=== PATIENT | male | born 1945 | race Caucasian/White ===

== ENCOUNTER 2018-08-18 19:30 | Emergency (ER) | payer OTHER ==
[~2018-08-18] VITALS: Ht 180.3 cm; Wt 108.9 kg
--- OUTSIDE RECORDS SUMMARY | 2018-08-18 19:35 | XMS REPORT | Continuity of Care Document ---
Author Author [facility] Organization [facility] Address Unknown Phone Unavailable Allergies There is no data. Medications There is no data. Problems Date Dx Coded Attending Type Code Diagnosis Diagnosed By 02/26/2016 LILIAN LAGOS Ot 305.1 TOBACCO USE DISORDER Procedures There is no data. Results There is no data. Encounters ACCT No. Visit Date/Time Discharge Status Pt. Type Provider Facility Loc./Unit Complaint [id number] 02/20/2014 11:38:00 02/20/2014 23:59:59 CLS Outpatient LILIAN LAGOS [facility] RAD
[2018-08-18] MEDS ORDERED: HYDROcodone/APAP 5 MG/325 MG (LORTAB) TAB PO ONE (20:30)
--- NOTE | 2018-08-18 20:32 | ED Fall/Injury ---
General Stated Complaint: PREV FALL/BACK PAIN Source: patient Exam Limitations: no limitations History of Present Illness Date Seen by Provider: Aug 18, 2018 Time Seen by Provider: 20:30 Initial Comments To ER with reports of a fall on Tuesday of this week. Today is Tuesday. States that he slipped on his porch steps Tuesday they were slippery and covered with ice. Did not hit his head but he landed on his left upper back. He has subsequent pain to the left posterior lower chest that wraps around the lateral side into the front. No abdominal pain. No shortness of breath. Occurred: other (2 days ago) Severity: moderate Injuries/Pain Location: chest Context: slipped Loss of Consciousness: no loss of consciousness Associated Symptoms (Fall): No Abdominal Pain; Chest Pain (posterior left); No Neck Pain Allergies and Home Medications Allergies Coded Allergies: No Known Drug Allergies (Unverified , 08/18/18) Home Medications Hydrocodone/Acetaminophen 1 Each Tablet, 1 EACH PO Q6H PRN for PAIN-MODERATE Prescribed by: RICARDO TEMPLE on 08/18/18 0738 Patient Home Medication List Home Medication List Reviewed: Yes Review of Systems Review of Systems Constitutional: see HPI Eyes: No Symptoms Reported Ears, Nose, Mouth, Throat: no symptoms reported Respiratory: no symptoms reported Cardiovascular: no symptoms reported Genitourinary: no symptoms reported Musculoskeletal: no symptoms reported Skin: no symptoms reported Psychiatric/Neurological: No Symptoms Reported Past Hzxgebj-Vhohpq-Vqawug Hx Patient Social History Recent Foreign Travel: No Contact w/Someone Who Travel: No Physical Exam Vital Signs Vital Signs - First Documented 08/18/18 20:25 Temp 99.5 Pulse 72 Resp 16 B/P (MAP) 171/69 (103) Pulse Ox 96 Capillary Refill : Height, Weight, BMI Height: '" Weight: lbs. oz. kg; BMI Method: General Appearance: WD/WN, no apparent distress HEENT: PERRL/EOMI, normal ENT inspection Neck: non-tender, full range of motion Cardiovascular: regular rate, rhythm, no murmur Respiratory: normal breath sounds, no respiratory distress, no accessory muscle use Gastrointestinal: normal bowel sounds, non tender, soft Back: other (posterior left lower chest is tender to palpation but there is no crepitus ecchymosis abrasions.) Extremities: normal range of motion, non-tender Neurologic/Psychiatric: alert, normal mood/affect, oriented x 3 Skin: normal color, warm/dry Celi Coma Score Best Eye Response: (4) Open Spontaneously Best Verbal Response: (5) Oriented Best Motor Response: (6) Obeys Commands Celi Total: 15 Progress/Results/Core Measures Results/Orders My Orders Orders - RICARDO TEMPLE APRN Ct Chest Wo (08/18/18 20:29) Hydrocodone/Apap 5/325 Tablet (Lortab 5 (08/18/18 20:30) Rx-Hydrocodone/Apap 5-325 Mg (Rx-Vicodin (08/18/18 22:45) Medications Given in ED Current Medications Medications Dose Ordered Sig/Varun Route Start Time Stop Time Status Last Admin Dose Admin Acetaminophen/ Hydrocodone Bitart 1 tab ONCE ONCE PO 08/18/18 20:30 08/18/18 20:31 DC 08/18/18 20:36 1 TAB Vital Signs/I&O 08/18/18 20:25 Temp 99.5 Pulse 72 Resp 16 B/P (MAP) 171/69 (103) Pulse Ox 96 Departure Communication (Admissions) Family Conversation 8-I discussed the findings with him of his CT. We discussed the pulmonary nodule and the need for follow-up with primary care for further evaluation to rule out malignancy. He agrees to follow-up. We will treat as if there is a nonvisualized rib fracture with pain control. NAME: [facility] REC#: [id number] PT STATUS: REG ER : 1945 PHYSICIAN: RICARDO TEMPLE APRN ADMIT DATE: 08/18/18/ER Draft Date of Exam:08/18/18 CT CHEST WO PROCEDURE: CT chest without contrast. TECHNIQUE: Multiple contiguous axial images were obtained through the chest without the use of intravenous contrast. INDICATION: Chest pain after fall EXAMINATION: CT chest without contrast 08/18/2018 FINDINGS: There are diffuse emphysematous changes throughout the lungs. A focal nodule in the medial aspect of the right upper lobe is seen just posterior to the trachea. This measures 12 mm in greatest dimension. Adjacent mild patchy airspace opacity noted and nonspecific. Remaining right upper lobe and portions of the right middle lobe demonstrate multiple scattered airspace opacities and multiple tiny nodules which are too small to characterize at this time. A few are calcified. Mild pleural thickening along the lateral wall of the right hemithorax also noted. Bilateral predominantly apical emphysematous changes are seen with areas of scarring and/or atelectasis towards the apices. Very tiny nodules noted throughout the left lower lobe some of which may be calcified, others are not calcified and could be followed to assure stability. Atherosclerotic disease is seen. Shotty lymph nodes throughout the mediastinum noted. Visualized upper abdominal structures demonstrate an incompletely imaged abdominal aortic aneurysm, visualized aspects measure 4.3 cm in greatest dimension. No surrounding fluid along its visualized aspects appreciated. A splenule noted adjacent to the spleen. IMPRESSION: 1. Nonspecific nodule in the medial right upper lobe. A metastatic process or even early primary carcinoma cannot be excluded, however, given the multiple other calcified nodules this could be due to old granulomatous disease although felt to be less likely. PET scan may be warranted if clinically indicated. Other small nodularities throughout both lungs are too small for characterization at this time and could be followed to assure stability. 2. More focal vague airspace opacities in the right upper lobe which could be due to a developing infiltrate; correlate with symptoms. Otherwise, this could be focal atelectasis and scarring. Other incidental findings as described above including aortic aneurysm in the upper abdomen. 3. Not mentioned in the body of the report there is no pneumothorax. No displaced rib fractures appreciated. Dictated on workstation # [id number] Dict: 08/18/[id number] Trans: 08/18/182205 [facility] [id number] Interpreted by: ALVIN STARK MD Electronically signed by: Impression Primary Impression: Thoracic back pain Qualified Codes: M54.6 - Pain in thoracic spine Disposition: 01 HOME, SELF-CARE Condition: Stable Departure-Patient Inst. Decision time for Depature: 22:16 Referrals: JACQUES BELTRE MD (PCP/Family) Primary Care Physician Patient Instructions: Upper Back Pain Add. Discharge Instructions: 1. Take medication as directed. Return to ER for any fevers chills or worsening symptoms. Follow-up with your doctor on Tuesday for recheck. Scripts Hydrocodone/Acetaminophen ([place] 5-325 Tablet) 1 Each Tablet 1 EACH PO Q6H PRN for PAIN-MODERATE MDD 10, #14 TAB Prov: RICARDO TEMPLE PIPE MACHINE OPERATOR 08/18/18 Images Torso/Trunk 1 - Tenderness RICARDO TEMPLE APRN Aug 18, 2018 20:32
--- NOTE | 2018-08-18 22:06 | Diagnostic Imaging Report ---
PROCEDURE: CT chest without contrast. TECHNIQUE: Multiple contiguous axial images were obtained through the chest without the use of intravenous contrast. INDICATION: Chest pain after fall EXAMINATION: CT chest without contrast 08/18/2018 FINDINGS: There are diffuse emphysematous changes throughout the lungs. A focal nodule in the medial aspect of the right upper lobe is seen just posterior to the trachea. This measures 12 mm in greatest dimension. Adjacent mild patchy airspace opacity noted and nonspecific. Remaining right upper lobe and portions of the right middle lobe demonstrate multiple scattered airspace opacities and multiple tiny nodules which are too small to characterize at this time. A few are calcified. Mild pleural thickening along the lateral wall of the right hemithorax also noted. Bilateral predominantly apical emphysematous changes are seen with areas of scarring and/or atelectasis towards the apices. Very tiny nodules noted throughout the left lower lobe some of which may be calcified, others are not calcified and could be followed to assure stability. Atherosclerotic disease is seen. Shotty lymph nodes throughout the mediastinum noted. Visualized upper abdominal structures demonstrate an incompletely imaged abdominal aortic aneurysm, visualized aspects measure 4.3 cm in greatest dimension. No surrounding fluid along its visualized aspects appreciated. A splenule noted adjacent to the spleen. IMPRESSION: 1. Nonspecific nodule in the medial right upper lobe. A metastatic process or even early primary carcinoma cannot be excluded, however, given the multiple other calcified nodules this could be due to old granulomatous disease although felt to be less likely. PET scan may be warranted if clinically indicated. Other small nodularities throughout both lungs are too small for characterization at this time and could be followed to assure stability. 2. More focal vague airspace opacities in the right upper lobe which could be due to a developing infiltrate; correlate with symptoms. Otherwise, this could be focal atelectasis and scarring. Other incidental findings as described above including aortic aneurysm in the upper abdomen. 3. Not mentioned in the body of the report there is no pneumothorax. No displaced rib fractures appreciated. Dictated by: Dictated on workstation # [id number]
[2018-08-18] MEDS ORDERED: HYDR-4226 PO (22:16)
[2018-08-18 22:45] VITALS: BP 171/69
[2018-08-18] MEDS ORDERED: RX-HYDROCODONE/APAP 5/325 MG #4 TAB PK PO PRN (22:45)
== END 2018-08-18 22:48 | disposition home or self-care (01) ==
LOC: EDUNIT# 19:30 → ER 19:31
DX: M54.6 Pain in thoracic spine (principal); R40.2142 Coma scale, eyes open, spontaneous, at arrival to emergency department; R40.2252 Coma scale, best verbal response, oriented, at arrival to emergency department; R40.2362 Coma scale, best motor response, obeys commands, at arrival to emergency department; W10.8XXA Fall (on) (from) other stairs and steps, initial encounter
CPT/HCPCS: 71250

== ENCOUNTER 2019-04-04 16:35 | Inpatient (IN) | payer OTHER, MEDICARE ==
[~2019-04-04] VITALS: Ht 180.3 cm; Wt 131.7 kg
[2019-04-04] VITALS (13 sets, daily range): BP systolic 88–142; BP diastolic 51–72
[~2019-04-04 16:35] MED LIST: HYDR-4226 PO
--- OUTSIDE RECORDS SUMMARY | 2019-04-04 16:43 | XMS REPORT | Continuity of Care Document ---
Author Organization Unknown Address Unknown Allergies Active Description Code Type Severity Reaction Onset Reported/Identified Relationship to Patient Clinical Status Yes No Known Drug Allergies [id number] Drug Allergy Unknown N/A 08/18/2018 Medications There is no data. Problems Date Dx Coded Attending Type Code Diagnosis Diagnosed By 02/26/2016 LILIAN LAGOS [facility] Ot 305.1 TOBACCO USE DISORDER 08/18/2018 RICARDO TEMPLE APRN Ot M54.6 PAIN IN THORACIC SPINE 08/18/2018 RICARDO TEMPLE APRN Ot R07.89 OTHER CHEST PAIN 08/18/2018 RICARDO TEMPLE APRN Ot R40.2142 COMA SCALE, EYES OPEN, SPONTANEOUS, EMR 08/18/2018 RICARDO TEMPLE APRN Ot R40.2252 COMA SCALE, BEST VERBAL RESPONSE, ORIENT 08/18/2018 RICARDO TEMPLE APRN Ot R40.2362 COMA SCALE, BEST MOTOR RESPONSE, OBEYS C 08/18/2018 RICARDO TEMPLE APRN Ot W10.8XXA FALL (ON) (FROM) OTHER STAIRS AND STEPS, 08/21/2018 RICARDO TEMPLE APRN Ot M54.6 PAIN IN THORACIC SPINE 08/21/2018 RICARDO TEMPLE APRN Ot R07.89 OTHER CHEST PAIN 08/21/2018 RICARDO TEMPLE APRN Ot R40.2142 COMA SCALE, EYES OPEN, SPONTANEOUS, EMR 08/21/2018 RICARDO TEMPLE APRN Ot R40.2252 COMA SCALE, BEST VERBAL RESPONSE, ORIENT 08/21/2018 RICARDO TEMPLE APRN Ot R40.2362 COMA SCALE, BEST MOTOR RESPONSE, OBEYS C 08/21/2018 RICARDO TEMPLE APRN Ot W10.8XXA FALL (ON) (FROM) OTHER STAIRS AND STEPS, Procedures There is no data. Results There is no data. Encounters ACCT No. Visit Date/Time Discharge Status Pt. Type Provider Facility Loc./Unit Complaint [id number] 08/18/2018 19:31:00 08/18/2018 22:48:00 DIS Emergency RICARDO TEMPLE APRN [facility] ER PREV FALL/BACK PAIN [id number] 02/20/2014 11:38:00 02/20/2014 23:59:59 CLS Outpatient LILIAN LAGOSP-[employer]PER[employer] [facility] RAD
[2019-04-04 16:54] LABS: BASOPHILS % (AUTO) 0 % (0-10); EOSINOPHILS % (AUTO) 0 % (0-10); HEMATOCRIT 43 % (40-54); HEMOGLOBIN 14.2 G/DL (13.3-17.7); LYMPHOCYTES # (AUTO) 1.1 X 10^3 (1.0-4.0); LYMPHOCYTES % (AUTO) 7 % (12-44); MEAN CORPUSCULAR HEMOGLOBIN 28 PG (25-34); MEAN CORPUSCULAR HGB CONC 33 G/DL (32-36); MEAN CORPUSCULAR VOLUME 83 FL (80-99); MEAN PLATELET VOLUME 8.9 FL (7.4-10.4); MONOCYTES # (AUTO) 0.9 X 10^3 (0.0-1.0); MONOCYTES % (AUTO) 5 % (0-12); NEUTROPHILS # (AUTO) 14.4 X 10^3 (1.8-7.8); NEUTROPHILS % (AUTO) 88 % (42-75); PLATELET COUNT 289 10^3/uL (130-400); RED CELL DISTRIBUTION WIDTH 14.5 % (10.0-14.5); WHITE BLOOD COUNT 16.4 10^3/uL (4.3-11.0)
[2019-04-04 17:12] LABS: PROTHROMBIN TIME PATIENT 13.7 SEC (12.2-14.7)
[2019-04-04 17:13] LABS: ALBUMIN 3.8 GM/DL (3.2-4.5); BILIRUBIN,TOTAL 0.5 MG/DL (0.1-1.0); CALCIUM 9.5 MG/DL (8.5-10.1); CREATININE SERUM 1.26 MG/DL (0.60-1.30); MAGNESIUM 1.9 MG/DL (1.8-2.4); POTASSIUM 4.4 MMOL/L (3.6-5.0); TOTAL PROTEIN 7.5 GM/DL (6.4-8.2)
[2019-04-04] MEDS ORDERED: fentaNYL INJECTION 100 MCG/2 ML AMP IVP ONE (17:15)
[2019-04-04 17:21] LABS: FIBRIN DEGRADATION PRODUCTS 2.18 UG/ML (0.00-0.49)
--- NOTE | 2019-04-04 17:40 | ED Chest Pain ---
General Chief Complaint: Chest Pain Stated Complaint: CHEST PAIN Nursing Triage Note: PT PRESENTS TO THE ED VIA EMS TO RM 10 WITH COMPLAINTS OF CHEST PAIN THAT DIFFUSES TO THE LEFT ARM WHICH PRECIPITATED AFTER PHYSICAL ACTIVITY IN YARD. CHEST PAIN STARTED AROUND 1500 WHILE RESTING. PT RATED CHEST PAIN 10/10 UPON EMS ARRIVAL TO SITE THEN RATED 6/10 AFTER RECIEVING AN ASPIRIN, 2 SUBLINGUAL NITRO AND NITRO PASTE. Nursing Sepsis Screen: No Definite Risk Source: patient, EMS Exam Limitations: no limitations (SONNY MANCILLA MD) History of Present Illness Date Seen by Provider: Apr 04, 2019 Time Seen by Provider: 16:48 Initial Comments This 74-year-old gentleman presents to the emergency room with complaints of sudden onset of stabbing chest pain that started around 15:00. He arrives via EMS from home. He states the pain started during a coughing fit. He has had cough recently and is currently being treated by his primary care provider with azithromycin and prednisone. He denies any fevers. Pain is not worse with inspiration. He notes having frequent chest pain with exertion over the past 6 months requiring rest. This chest pain has been interrupting his chores at home and in the yard. He has no history of coronary artery disease but has not had any workup done in the past. Patient states EMS administered nitroglycerin sublingually 2 which did help alleviate his pain. EMS then applied nitro past e. Patient states his pain was a 10 on the pain scale when it started. After nitroglycerin and it was 8. Patient received fentanyl in the ER and his pain is now a 6. Patient quit smoking 4 years ago and does not drink alcohol. His primary care provider is Lisseth Wilson at the [facility]. EMS administered his aspirin. (SONNY MANCILLA MD) Allergies and Home Medications Allergies Coded Allergies: No Known Drug Allergies (Unverified , 08/18/18) Home Medications Hydrocodone/Acetaminophen 1 Each Tablet, 1 EACH PO Q6H PRN for PAIN-MODERATE Prescribed by: RICARDO TEMPLE on 08/18/18 3842 Patient Home Medication List Home Medication List Reviewed: Yes (SONNY MANCILLA MD) Review of Systems Review of Systems Constitutional: no symptoms reported EENTM: No Symptoms Reported Respiratory: See HPI Cardiovascular: See HPI Gastrointestinal: No Symptoms Reported Genitourinary: No Symptoms Reported Musculoskeletal: other (chronic hip pain) Skin: no symptoms reported Psychiatric/Neurological: No Symptoms Reported Endocrine: No Symptoms Reported Hematologic/Lymphatic: No Symptoms Reported (SONNY MANCILLA MD) Past Flkhphu-Dtgksx-Udmpjv Hx Past Med/Social Hx: Reviewed and Corrections made (SONNY MANCILLA MD) Patient Social History Alcohol Use: Denies Use Recreational Drug Use: No Smoking Status: Former Smoker Type Used: Cigarettes Former Smoker, Quit: Mar 03, 2014 2nd Hand Smoke Exposure: No Recent Foreign Travel: No Contact w/Someone Who Travel: No Recent Infectious Disease Expo: No Recent Hopitalizations: No (SONNY MANCILLA MD) Seasonal Allergies Seasonal Allergies: No (SONNY MANCILLA MD) Past Medical History Surgeries: Yes Tonsillectomy Respiratory: Yes COPD Cardiac: Yes High Cholesterol, Hypertension, Valvular Heart Disease Neurological: No Genitourinary: No Gastrointestinal: Yes Gastroesophageal Reflux Musculoskeletal: Yes (chronic hip pain) Arthritis, Chronic Back Pain Endocrine: No HEENT: No Cancer: No Psychosocial: No Integumentary: No Blood Disorders: No (SONNY MANCILLA MD) Physical Exam Vital Signs Vital Signs - First Documented (IMANI CARDENAS) Vital Signs Capillary Refill : Less Than 3 Seconds (SONNY MANCILLA MD) Height, Weight, BMI Height: 5'11.00" Weight: 245lbs. oz. 111.596741og; BMI Method:Stated General Appearance: WD/WN, Moderate Distress HEENT: PERRL/EOMI, Normal ENT Inspection Neck: Normal Inspection Respiratory: Lungs Clear, Normal Breath Sounds, No Accessory Muscle Use, No Respiratory Distress, Other (subtle tenderness to palpation on the left lateral chest.) Cardiovascular: Regular Rate, Rhythm, No Edema, No Murmur Gastrointestinal: Normal Bowel Sounds, Non Tender, Soft Extremity: Normal Inspection, Non Tender, No Calf Tenderness, No Pedal Edema, Other (negative Nohemi) Neurologic/Psychiatric: Alert, Oriented x3, No Motor/Sensory Deficits, Normal Mood/Affect, orthopaedic technologist II-XII Norm as Tested Skin: Normal Color, Warm/Dry (SONNY MANCILLA MD) Procedures/Interventions Lumen: triple Central Line Procedure: betadine prep (chlorhexidine prep), sterile drapes applied, sterile dressing applied Position: internal jugular (L) Anesthesia: Lidocaine (1% without epinephrine) Volume Anesthetic (ccs): 3 Complications: none Post Position: sutured, good blood return, position confirmed w/ CXR Patient was in extremis after having been coded with low blood pressure of map of 65. The patient was positioned appropriately and ultrasound was placed over the right IJ and left IJ and left IJ was determined to be a larger target. We clean the site using the chlorhexidine and draped the patient on usual sterile fashion. We then obtained our landmarks using ultrasound guidance and place the introducer needle through the anesthetized skin into the right IJ on first attempt. Guidewire was easily passed. Skin had a small incision made with the 11 blade scalpel provided. We then removed the introducer needle and replaced the dilator over the guidewire. The dilator was removed and the central lumen of the triple lumen catheter that had previously been flushed with sterile saline was placed over the guidewire and the guidewire was removed. We then stitched the catheter in place at 14 cm. The Biopatch was placed and a sterile dressing was applied. Patient tolerated the procedure well. Chest x-ray was obtained which demonstrated good placement with a shadow over the left internal jugular and the distal tip not crossing the midline and no evidence of pneumothorax. (IMANI CARDENAS) Reason for Intubation: status post code Date of ETT Placement: Apr 04, 2019 Time of ETT Placement: 19:20 Intubation Method: orotracheal Tube Size: 7.5 Medications: Etomidate (20mg), Succinylcholine (100mg) Positive End Tide CO2: No Breath Sounds after Intubation: bilateral-equal Intubation Complications: no complications Post Intubation Xray: Yes ET tube at the mariela ET tube was withdrawn 1 cm and repeat x-ray will be obtained in or after the catheter lab. (IMANI CARDENAS) Progress Arctic Sun pads were placed and the patient was transported to the Pump Rebuilder where it was initiated. (IMANI CARDENAS) Critical Care Note Critical Care Start Time: 18:56 Stop Time: 19:56 Total Time (minutes) 60 Progress Patient was heard to be making abnormal respiratory sounds at approximately 1856. He was found unresponsive and pulseless in the room by this provider. He was laid back in the bed and CPR was immediately started. BVM ventilation was initiated as well. A CODE BLUE was activated. He had minimal agonal breathing. CPR was initiated at 18:57. Pads were placed and patient was found to be in ventricular fibrillation. He was defibrillated at 120 J at 19:00. CPR was continued and 1 mg of epinephrine was administered. At 19:01 pulse check revealed PEA. CPR was continued. Patient had some movement during CPR but otherwise was unresponsive. Patient was sedated with Versed 3 mg in preparation for intubation. Pulse check at 19:02 revealed sinus tachycardia with a pulse. Etomidate 20 mg was administered at 19:05. Patient registered a blood pressure at 19:06 at 137/85. Patient was receiving IV normal saline boluses. Patient was intubated by Dr. Cardenas at 19:07. Succinylcholine 100 mg was administered at the time of intubation. Intubation was performed with a 7-gauge ET tube placed at 23 cm at the lip. Patient continued to register a pulse and was maintained on BVM followed by mechanical ventilation. Blood pressure at 19:16 was 92/61. End-tidal capnography was at 37. A second liter of IV normal saline was started at 19:19. A propofol drip was initiated at 19:29. Dr. Tirado arriv ed to the emergency room to assess the patient. He was prepped for Pump Rebuilder and Arctic Sun pads were placed to start therapeutic hypothermia. Family was thoroughly updated and engineering document control clerk services were made available. Patient was taken to Pump Re[facility] at 19:56 (SONNY MANCILLA MD) Progress/Results/Core Measures Results/Orders Lab Results Laboratory Tests Test 04/04/19 16:45 04/04/19 19:35 Range/Units White Blood Count 16.4 H 4.3-11.0 10^3/uL Red Blood Count 5.16 4.35-5.85 10^6/uL Hemoglobin 14.2 13.3-17.7 G/DL Hematocrit 43 40-54 % Mean Corpuscular Volume 83 80-99 FL Mean Corpuscular Hemoglobin 28 25-34 PG Mean Corpuscular Hemoglobin Concent 33 32-36 G/DL Red Cell Distribution Width 14.5 10.0-14.5 % Platelet Count 289 130-400 10^3/uL Mean Platelet Volume 8.9 7.4-10.4 FL Neutrophils (%) (Auto) 88 H 42-75 % Lymphocytes (%) (Auto) 7 L 12-44 % Monocytes (%) (Auto) 5 0-12 % Eosinophils (%) (Auto) 0 0-10 % Basophils (%) (Auto) 0 0-10 % Neutrophils # (Auto) 14.4 H 1.8-7.8 X 10^3 Lymphocytes # (Auto) 1.1 1.0-4.0 X 10^3 Monocytes # (Auto) 0.9 0.0-1.0 X 10^3 Eosinophils # (Auto) 0.0 0.0-0.3 10^3/uL Basophils # (Auto) 0.0 0.0-0.1 10^3/uL Neutrophils % (Manual) 84 % Lymphocytes % (Manual) 5 % Monocytes % (Manual) 8 % Band Neutrophils 3 % Blood Morphology Comment NORMAL Prothrombin Time 13.7 12.2-14.7 SEC INR Comment 1.0 0.8-1.4 Activated Partial Thromboplast Time 27 24-35 SEC D-Dimer 2.18 H 0.00-0.49 UG/ML Sodium Level 134 L 135-145 MMOL/L Potassium Level 4.4 3.6-5.0 MMOL/L Chloride Level 100 98-107 MMOL/L Carbon Dioxide Level 19 L 21-32 MMOL/L Anion Gap 15 H 5-14 MMOL/L Blood Urea Nitrogen 23 H 7-18 MG/DL Creatinine 1.26 0.60-1.30 MG/DL Estimat Glomerular Filtration Rate 56 BUN/Creatinine Ratio 18 Glucose Level 156 H 70-105 MG/DL Calcium Level 9.5 8.5-10.1 MG/DL Corrected Calcium 9.7 8.5-10.1 MG/DL Magnesium Level 1.9 1.8-2.4 MG/DL Total Bilirubin 0.5 0.1-1.0 MG/DL Aspartate Amino Transf (AST/SGOT) 33 5-34 U/L Alanine Aminotransferase (ALT/SGPT) 21 0-55 U/L Alkaline Phosphatase 82 40-136 U/L Myoglobin 440.9 H 10.0-92.0 NG/ML Troponin I 0.114 H <0.028 NG/ML C-Reactive Protein High Sensitivity 2.70 H 0.00-0.50 MG/DL B-Type Natriuretic Peptide 285.0 H <100.0 PG/ML Total Protein 7.5 6.4-8.2 GM/DL Albumin 3.8 3.2-4.5 GM/DL Lipase 36 8-78 U/L Blood Gas Puncture Site RRAD Blood Gas Patient Temperature 98.3 Arterial Blood pH 7.05 *L 7.37-7.43 Arterial Blood Partial Pressure CO2 61 H 35-45 MMHG Arterial Blood Partial Pressure O2 159 H 79-93 MMHG Arterial Blood HCO3 16 *L 23-27 MMOL/L Arterial Blood Total CO2 18.0 L 21.0-31.0 MMOL/L Arterial Blood Oxygen Saturation 98 94-100 % Arterial Blood Base Excess -12.7 L -2.5-2.5 MMOL/L Omid Test YES-POS Blood Gas Ventilator Setting NO Blood Gas Inspired Oxygen 100% (IMANI CARDENAS) My Orders Orders - IMANI CARDENAS Arterial Blood Gas (04/04/19 19:38) (IMANI CARDENAS) Medications Given in ED Current Medications Medications Dose Ordered Sig/Varun Route Start Time Stop Time Status Last Admin Dose Admin Albuterol/ Ipratropium 3 ml ONCE ONCE INH 04/04/19 17:45 04/04/19 17:46 DC 04/04/19 18:11 3 ML Clopidogrel Bisulfate 300 mg ONCE ONCE PO 04/04/19 18:00 04/04/19 18:01 DC 04/04/19 18:19 300 MG Fentanyl Citrate 50 mcg ONCE ONCE IVP 04/04/19 17:15 04/04/19 17:16 DC 04/04/19 17:20 50 MCG Iohexol 150 ml ONCE ONCE IV 04/04/19 18:30 04/04/19 18:39 DC 04/04/19 18:38 150 ML Propofol 100 ml @ STK-MED ONCE IV 04/04/19 19:07 04/04/19 19:14 DC 04/04/19 19:29 26.6 MLS/HR Sodium Chloride 100 ml ONCE ONCE IV 04/04/19 18:30 04/04/19 18:39 DC 04/04/19 18:38 100 ML Sodium Chloride 1,000 ml @ STK-MED ONCE .ROUTE 04/04/19 18:55 04/04/19 19:01 DC 04/04/19 19:06 1,000 MLS/HR Sodium Chloride 1,000 ml @ STK-MED ONCE .ROUTE 04/04/19 19:13 04/04/19 19:20 DC 04/04/19 19:13 1,000 MLS/HR Sodium Chloride 1,000 ml @ STK-MED ONCE .ROUTE 04/04/19 19:29 04/04/19 19:35 DC 04/04/19 19:36 1,000 MLS/HR (IMANI CARDENAS) Vital Signs/I&O 04/04/19 04/04/19 04/04/19 04/04/19 16:39 16:39 18:11 19:29 Temp 98.3 Pulse 94 134 Resp 14 20 B/P (MAP) 150/73 (98) 130/114 Pulse Ox 96 98 89 O2 Delivery Room Air Room Air 04/05/19 00:00 Intake Total 2000 ml Balance 2000 ml (IMANI CARDENAS) Blood Pressure Mean: 98 Progress Progress Note #1: Time: 18:21 Progress Note Chest pain workup was pursued. Patient was feeling a little better with the nitroglycerin paste. He states his pain decreased from a 10 down to 8 after the nitroglycerin paste. It then decreased to 6/10 after fentanyl. EKG was concerning for some nonspecific ST changes but those changes could represent some ischemia. Troponin was less than 0.3 but was elevated at 0.114. Case was discussed with Dr. Tirado who would like to patient mid to the ICU. He requested he additionally be given Plavix. Patient's d-dimer returned elevated. CT angiogram needs to be performed before he departs the emergency room. Patient has history of COPD and he is having trouble coughing up mucus. A DuoNeb treatment was administered which did help his chest discomfort and breathing. Progress Note #2: Time: 19:[address] angiogram was obtained and revealed no acute abnormalities. Upon returning from CT patient complained of escalating chest pain. He was given 5 mg of morphine. I updated Dr. Tirado with patient's status. Dr. Tirado then requested the Pump Rebuilder be activated. I discussed this with the patient and explained angiography and the necessity of this procedure. Patient was agreeable to angiography. Shortly after I left the room I heard unusual breathing coming from his room. I walked into the room to find him lying on his back against the rail unresponsive. Staff were summoned to the room and CPR was immediately started. See critical care notes for further details. Patient underwent cardiac resuscitation with defibrillation, CPR, and administration of epinephrine. ROSC was achieved. Patient was stabilized and Dr. Tirado was again updated. He still plans to take the patient to cardiac cath. Case was also discussed with Dr. Penny who agrees with angiography and Arctic Sun administration for unresponsive post cardiac arrest therapeutic hypothermia. Family has been thoroughly updated with the patient's status and are in agreement with this plan. (SONNY MANCILLA MD) Initial ECG Impression Date: Apr 04, 2019 Initial ECG Impression Time: 16:39 Initial ECG Rate: 96 Comment Sinus rhythm with no ST elevation. Inverted T waves with repolarization abnormality, possibly suggesting ischemia. No abnormal intervals or axis deviation. (SONNY MANCILLA MD) Diagnostic Imaging Diagonstic Imaging: Xray Plain Films/CT/US/NM/MRI: chest Comments Chest x-ray viewed by me and report reviewed. See report below: NAME: BERNA SMALLWOOD Nestio REC#: [id number] PT STATUS: REG ER : 12/05/1944 PHYSICIAN: RICARDO TEMPLE APRN ADMIT DATE: 04/04/19/ER Signed Date of Exam: 04/04/19 CHEST 1 VIEW, AP/PA ONLY INDICATION: Chest pain and cough. FINDINGS: Portable chest shows heart size to be upper normal. Vascularity is normal. The lungs are clear. There is no effusion or pneumothorax. There is no bony abnormality. IMPRESSION: No acute abnormality is seen. Chest is similar to prior study from 08/18/2018. Dictated by: Dictated on workstation # [id number] Dict: 04/04/191755 Trans: 04/04/191818 Interpreted by: ALESIA MENDOZA MD Electronically signed by: ALESIA MENDOZA MD 04/04/191818 Diagonstic Imaging: CT Plain Films/CT/US/NM/MRI: chest Comments NAME: BERNA SMALLWOOD Nestio REC#: [id number] PT STATUS: REG ER : 12/05/1944 PHYSICIAN: SONNY MANCILLA MD ADMIT DATE: 04/04/19/ER Signed Date of Exam: 04/04/19 CT ANGIO CHEST W PROCEDURE: CT angiography of the chest with contrast. TECHNIQUE: Multiple contiguous axial images were obtained through the chest after uneventful bolus administration of intravenous contrast. 2D reconstructed CTA MIP acquisitions were also performed. Auto Exposure Controls were utilized during the CT exam to meet ALARA standards for radiation dose reduction. INDICATION: Chest pain radiating to left arm. FINDINGS: The lungs are clear. There is no effusion or pneumothorax. There is mild cardiomegaly. There is no aortic aneurysm or dissection. There is no pulmonary embolus. IMPRESSION: No acute abnormality is seen. No pulmonary embolus is seen. Dictated by: Dictated on workstation # [id number] Dict: 04/04/19 184 Trans: 04/04/191856 Interpreted by: ALESIA MENDOZA MD Electronically signed by: ALESIA MENDOZA MD 04/04/191856 Reviewed: Reviewed by Me (SONNY MANCILLA MD) Diagonstic Imaging: Xray Plain Films/CT/US/NM/MRI: chest Comments Satisfactory endotracheal tube and nasogastric tube placement. Development of diffuse bilateral pulmonary infiltrates right greater than left. Left sided central line has tip overlying the left innominate shadow. Reviewed: Reviewed by Me (IMANI CARDENAS) Departure Impression Primary Impression: Cardiac arrest with ventricular fibrillation Disposition: ADMITTED INPATIENT Condition: Critical Admissions Decision to Admit Reason: Admit from ER (General) Decision to Admit/Date: Apr 04, 2019 Time/Decision to Admit Time: 17:00 (SONNY MANCILLA MD) Departure-Patient Inst. Referrals: JACQUES BELTRE MD (PCP/Family) Primary Care Physician SONNY MANCILLA MD Apr 04, 2019 17:40 IMANI CARDENAS Apr 05, 2019 02:53
[2019-04-04 17:43] LABS: BAND NEUTROPHILS 3 %; LYMPHOCYTES % (MANUAL) 5 %; MONOCYTES % (MANUAL) 8 %; NEUTROPHILS % (MANUAL) 84 %
[2019-04-04 17:44] LABS: RBC MORPH NORMAL
[2019-04-04] MEDS ORDERED: RT-ALBUTEROL/IPRATROPIUM 3 ML (DUONEB) VIAL INH ONE (17:45)
--- NOTE | 2019-04-04 17:59 | Diagnostic Imaging Report ---
INDICATION: Chest pain and cough. FINDINGS: Portable chest shows heart size to be upper normal. Vascularity is normal. The lungs are clear. There is no effusion or pneumothorax. There is no bony abnormality. IMPRESSION: No acute abnormality is seen. Chest is similar to prior study from 08/18/2018. Dictated by: Dictated on workstation # [id number]
[2019-04-04] MEDS ORDERED: CLOPIDOGREL 300 MG (PLAVIX) TABLET PO ONE ×2 (18:00→22:15)
[2019-04-04] MEDS ORDERED: NS 100 ML (IVPB) BAG IV ONE (18:30)
[2019-04-04] MEDS ORDERED: HOLD METFORMIN - RECEIVED CONTRAST 20 ML VIAL IV SCH (18:30)
[2019-04-04] MEDS ORDERED: IOHEXOL 350 MG/ML 150 ML (OMNIPAQUE 350) VIAL IV ONE (18:30)
[2019-04-04] MEDS ORDERED: morphine INJ 10 MG/ML 1ML (SYR OR VIAL) IVP STA (18:41)
--- NOTE | 2019-04-04 18:46 | Diagnostic Imaging Report ---
PROCEDURE: CT angiography of the chest with contrast. TECHNIQUE: Multiple contiguous axial images were obtained through the chest after uneventful bolus administration of intravenous contrast. 2D reconstructed CTA MIP acquisitions were also performed. Auto Exposure Controls were utilized during the CT exam to meet ALARA standards for radiation dose reduction. INDICATION: Chest pain radiating to left arm. FINDINGS: The lungs are clear. There is no effusion or pneumothorax. There is mild cardiomegaly. There is no aortic aneurysm or dissection. There is no pulmonary embolus. IMPRESSION: No acute abnormality is seen. No pulmonary embolus is seen. Dictated by: Dictated on workstation # [id number]
[2019-04-04] MEDS ORDERED: NS IV 1000 ML 1,000 ML ONE ×6 (18:55→20:51)
[2019-04-04] MEDS ORDERED: PROPOFOL DRIP (ICU) 100 ML IV ONE (19:07)
[2019-04-04] MEDS ORDERED: EPINEPHrine (OMNICELL DRIP KIT ONLY) 1 MG/ML AMP ONE (19:16)
[2019-04-04] MEDS ORDERED: NS (IVPB) 250 ML ONE ×2 (19:16→19:42)
[2019-04-04] MEDS ORDERED: LIDOCAINE 1% INJ 20 ML 20 ML VIAL ONE (19:17)
[2019-04-04] MEDS ORDERED: HEParin (CATH LAB) 2,000 ML IV ONE (19:17)
[2019-04-04] MEDS ORDERED: fentaNYL INJECTION 100 MCG/2 ML AMP ONE (19:21)
[2019-04-04] MEDS ORDERED: MIDAZOLAM 5 MG/5 ML (VERSED) VIAL ONE (19:21)
[2019-04-04] MEDS ORDERED: HEParin 1000 UNIT/ML (10ML VIAL) FOR BOLUS ONE (19:21)
[2019-04-04] MEDS ORDERED: MAGNESIUM 1 GM/100 ML IVPB 200 ML IV ONE ×2 (19:34→21:56)
[2019-04-04] MEDS ORDERED: LORazepam INJ 2 MG/ML (ATIVAN) VIAL ONE ×2 (19:34→22:46)
--- NOTE | 2019-04-04 19:39 | History & Physical-Hospitalist ---
History of Present Illness HPI/Chief Complaint Pt is a 74yoCM who presented to the ER due to chest pain. History is obtained only through the records because he is intubated. Reportedly he had been having chest pain on and off and putting it off because it got better on it's own. He was found to have a mildly elevated troponin and d-dimer so went to CT for CTA to rule out PE or dissection. CTA chest was negative and shortly upon return to the ER he was noticed to be gurgling and in v-fib arrest. ACLS protocol was initiated in the ER and he was shocked x1 with conversion to PEA. He received epi pushes x1 and CPR and ultimately had ROSC. Decision was made to take to emergent manager cath lab and initiate arctic sun therapy as he was unable to follow commands. He was intubated in the ER and central line was placed. I was later able to talk to the who states that he has been having chest pain and dyspnea with exertion that resolved with rest. He had been to see his Primary care provider a couple of times over the last month for a cough and SOB. He was treated with inhalers, steroids, and antibiotics without improvement. He had worsening pain today and his decided to bring him to the ER. Source: patient Exam Limitations: clinical condition Date Seen 04/04/19 Time Seen by a Provider: 19:34 Attending Physician Billie Ramos Ahmad MD Referring Physician Date of Admission Home Medications & Allergies Home Medications Reviewed patient Home Medication Reconciliation performed by pharmacy medication reconciliations all terrain vehicle technician and/or nursing. Patients Allergies have been reviewed. Allergies Allergies Coded Allergies No Known Drug Allergies (Eamhgthtdh56/16/18) Past Kslkxaj-Voolxr-Mwmjii Hx Past Med/Social Hx: Reviewed Nursing Past Med/Soc Hx Patient Social History Marrital Status: Alcohol Use: Denies Use Recreational Drug Use: No Smoking Status: Former Smoker Former Smoker, Quit: Mar 03, 2014 Type Used: Cigarettes 2nd Hand Smoke Exposure: No Recent Foreign Travel: No Contact w/other who traveled: No Recent Hopitalizations: No Recent Infectious Disease Expo: No Seasonal Allergies Seasonal Allergies: No Past Medical History Surgeries: Tonsillectomy Cardiac: High Cholesterol, Hypertension, Valvular Heart Disease Gastrointestinal: Gastroesophageal Reflux Musculoskeletal: Arthritis, Chronic Back Pain History of Blood Disorders: No Family History Reviewed Nursing Family Hx (unable to obtain) Review of Systems ROS-Unable to Obtain: intubated and sedated Constitutional: see HPI Physical Exam Physical Exam Vital Signs Vital Signs - First Documented 04/04/19 04/04/19 19:51 20:00 O2 Flow Rate 10.00 FiO2 100 Capillary Refill : Less Than 3 Seconds Height, Weight, BMI Height: 5'11.00" Weight: 245lbs. oz. 111.164224cj; BMI Method:Stated General Appearance: Obese, Severe Distress, Other (intubated) HEENT: Other (intubated) Neck: Other (central line in place) Respiratory: Respiratory Distress, Rhonci, Other (intubated- being bagged) Cardiovascular: No Murmur, Tachycardia Gastrointestinal: Normal Bowel Sounds, Non Tender, Soft Genital/Rectal: Other (gaming in place) Extremity: Pedal Edema (minimal in right foot, left foot without edema), Slow Capillary Refill Neurologic/Psychiatric: Other (sedated) Skin: Normal Color, Warm/Dry; No Ecchymosis, No Petechia, No Rash Results Results/Procedures Labs Laboratory Tests 04/04/19 16:45 04/04/19 20:05 04/04/19 22:45 04/05/19 02:40 Patient resulted labs reviewed. Imaging: Reviewed Imaging Report Assessment/Plan Admission Diagnosis V-fib arrest Admission Status: Inpatient Order (span 2 midnights) Reason for Inpatient Admission: manager cath lab, hanh mendoza Diagnosis/Problems Diagnosis/Problems (1) Cardiac arrest with ventricular fibrillation Assessment & Plan: v-fib arrest on 04/04 shock x1 ROSC obtained and arctic sun started Emergently taken to manager cath lab by Dr Celestino mendoza protocol Spoke with Dr Penny, in agreement that is appropriate candidate for arctic sun Discussed with family in ER and they are agreeable- explained process of cooling (2) Metabolic acidosis Assessment & Plan: mixed respiratory and metabolic acidosis (3) Shock Assessment & Plan: hypotensive following intubation and arrest levophed started received 3 liters in the ER (4) Acute respiratory failure Assessment & Plan: intubated in ER Pulm consulted, appreciate recs Discussed with Dr Penny Qualifiers: Respiratory failure complication: hypercapnia Qualified Codes: J96.02 - Acute respiratory failure with hypercapnia BILLIE RAMOS MD Apr 04, 2019 7:39 pm
[2019-04-04] MEDS ORDERED: NOREPINEPHRINE 4 MG/4 ML (LEVOPHED) AMP IV ONE (19:42)
[2019-04-04 19:47] LABS: ABG BASE EXCESS -12.7 MMOL/L (-2.5-2.5); ABG OXYGEN SATURATION 98 % (94-100); ABG PCO2 61 MMHG (35-45); ABG PO2 159 MMHG (79-93); ALLENS TEST YES-POS; INSPIRED O2 100%; PATIENT TEMP 98.3; VENTILATOR NO
[2019-04-04 19:49] LABS: ABG PH 7.05 (7.37-7.43)
--- NOTE | 2019-04-04 19:49 | Consultation-Cardiology ---
HPI-Cardiology Cardiology Consultation: Date of Consultation 04/04/19 Time Seen by a Provider: 19:35 Date of Admission Attending Physician Admitting Physician Dr Ramos Consulting Physician VIJAY SOLORZANO MD, FACP, FACC HPI: Chief Complaint: CC: Chest pain HPI Pt intubated and being ventilated post-code (VF arrest) at time of my exam. History was obtained for Dr Carranza who attended the patient as his ER physician. He had presented with L-sided chest pain that began a few prior to admission and also reported that he had exertional chest pain and shortness of breath for 6 months. ECG showed mild ST depression at presentation, diffuse. Troponin was mildly elevated as was D-Dimer. CT angio of chest did not show PE. We called in the labourers because of continuing chest discomfort. He had VF arrest as the labourers and I were coming in. He continues to remain unstable and in shock post-code. Plan is to carry out emergency cath although risk is very high, given his instability Review of Systems-Cardiology Review of Systems Constitutional: other (not obtainable) YEB-Htysjp-Hryjeh Hx Patient Social History Alcohol Use: Denies Use Recreational Drug Use: No Smoking Status: Former Smoker Type Used: Cigarettes 2nd Hand Smoke Exposure: No Recent Foreign Travel: No Recent Infectious Disease Expo: No Hospitalization with Isolation: Denies Past Medical History PMH As described under Assessment. Family Medical History Family Medical History: Not available Allergies and Home Medications Allergies Coded Allergies: No Known Drug Allergies (Unverified , 08/18/18) Home Medications Hydrocodone/Acetaminophen 1 Each Tablet, 1 EACH PO Q6H PRN for PAIN-MODERATE Prescribed by: RICARDO TEMPLE on 08/18/18 7323 Patient Home Medication List Home Medication List Reviewed: Yes Physical Exam-Cardiology Physical Exam Vital Signs/I&O 04/04/19 04/04/19 04/04/19 16:39 16:39 18:11 Temp 98.3 Pulse 94 Resp 14 B/P (MAP) 150/73 (98) Pulse Ox 96 98 O2 Delivery Room Air Room Air Capillary Refill : Less Than 3 Seconds Constitutional: other (intubated and being ventilated, unresponsive) HEENT: other (pupils sluggishly reactive) Neck: other (weak carotid pulses) Respiratory: other Cardiovascular: irregularly irregular, S1 and S2, systolic murmur (soft SERAFIN at card base) Gastrointestinal: distended; No audible bowel sounds Extremities: swelling (mild edema); No clubbing, No cyanosis Neurologic/Psychiatric: other (unresponsive) Skin: No rash on exposed areas, No ulcerations on exposed areas Data Review Labs Laboratory Tests 04/04/19 16:45: White Blood Count 16.4H, Red Blood Count 5.16, Hemoglobin 14.2, Hematocrit 43, Mean Corpuscular Volume 83, Mean Corpuscular Hemoglobin 28, Mean Corpuscular Hemoglobin Concent 33, Red Cell Distribution Width 14.5, Platelet Count 289, Mean Platelet Volume 8.9, Neutrophils (%) (Auto) 88H, Lymphocytes (%) (Auto) 7L, Monocytes (%) (Auto) 5, Eosinophils (%) (Auto) 0, Basophils (%) (Auto) 0, Neutrophils # (Auto) 14.4H, Lymphocytes # (Auto) 1.1, Monocytes # (Auto) 0.9, Eosinophils # (Auto) 0.0, Basophils # (Auto) 0.0, Neutrophils % (Manual) 84, Lymphocytes % (Manual) 5, Monocytes % (Manual) 8, Band Neutrophils 3, Blood Morphology Comment NORMAL, Prothrombin Time 13.7, INR Comment 1.0, Activated Partial Thromboplast Time 27, D-Dimer 2.18H, Sodium Level 134L, Potassium Level 4.4, Chloride Level 100, Carbon Dioxide Level 19L, Anion Gap 15H, Blood Urea Nitrogen 23H, Creatinine 1.26, Estimat Glomerular Filtration Rate 56, BUN/Creatinine Ratio 18, Glucose Level 156H, Calcium Level 9.5, Corrected Calcium 9.7, Magnesium Level 1.9, Total Bilirubin 0.5, Aspartate Amino Transf (AST/SGOT) 33, Alanine Aminotransferase (ALT/SGPT) 21, Alkaline Phosphatase 82, Myoglobin 440.9H, Troponin I 0.114H, C-Reactive Protein High Sensitivity 2.70H, B-Type Natriuretic Peptide 285.0H, Total Protein 7.5, Albumin 3.8, Lipase 36 Laboratory Tests 04/04/19 16:45 A/P-Cardiology Assessment/Admission Diagnosis Probable ac OK and cardiogenic shock S/p cardiac and respiratory arrest Discussion and Recomendations * High-risk cath/intervention VIJAY SOLORZANO MD [facility] Apr 04, 2019 19:49
--- NOTE | 2019-04-04 19:57 | Diagnostic Imaging Report ---
INDICATION: Post code and central line placement. Time of exam: 7:48 PM Correlation is made with prior study earlier the same day. Endotracheal tube has been placed and has a tip in good position above the mariela. NG tube passes below the diaphragm. Patient has developed extensive bilateral pulmonary infiltrates, most marked throughout the right lung. No effusion or pneumothorax is seen. Left-sided line has tip overlying the left innominate. IMPRESSION: 1. Satisfactory endotracheal tube and nasogastric tube placement. 2. Development of diffuse bilateral pulmonary infiltrates, right greater. Dictated by: Dictated on workstation # [id number]
[2019-04-04] MEDS ORDERED: MAG SULFATE 2 GM/50 ML IV PRE-MIX BAG IV STA (20:15)
[2019-04-04] MEDS ORDERED: ARTIFICIAL TEARS OINT (LACRI-LUBE) 3.5 GM TUBE OU PRN ×2 (20:15)
[2019-04-04] MEDS ORDERED: ROCURONIUM 10 MG/ML 5 ML SYRINGE IV STA (20:15)
[2019-04-04] MEDS ORDERED: SODIUM PHOSPHATE INJ 30 MM in NS (IVPB) 250 ML IV PRN (20:15)
[2019-04-04] MEDS ORDERED: ROCURONIUM 50 MG/5 ML (ZEMURON) VIAL IV PRN (20:15)
[2019-04-04] MEDS ORDERED: LORazepam INJ 2 MG/ML (ATIVAN) VIAL IV STA (20:15)
[2019-04-04] MEDS ORDERED: fentaNYL INJECTION 100 MCG/2 ML AMP IV STA (20:15)
[2019-04-04] MEDS ORDERED: MAGNESIUM SULFATE DRIP 500 ML IV SCH ×2 (20:15→22:02)
[2019-04-04] MEDS ORDERED: EPTIFIBATIDE BOLUS 20 ML IV ONE (20:16)
[2019-04-04 20:32] LABS: BASOPHILS % (AUTO) 0 % (0-10); EOSINOPHILS % (AUTO) 0 % (0-10); HEMATOCRIT 40 % (40-54); HEMOGLOBIN 12.8 G/DL (13.3-17.7); LYMPHOCYTES # (AUTO) 2.4 X 10^3 (1.0-4.0); LYMPHOCYTES % (AUTO) 11 % (12-44); MEAN CORPUSCULAR HEMOGLOBIN 28 PG (25-34); MEAN CORPUSCULAR HGB CONC 32 G/DL (32-36); MEAN CORPUSCULAR VOLUME 85 FL (80-99); MEAN PLATELET VOLUME 8.9 FL (7.4-10.4); MONOCYTES # (AUTO) 1.9 X 10^3 (0.0-1.0); MONOCYTES % (AUTO) 9 % (0-12); NEUTROPHILS # (AUTO) 16.9 X 10^3 (1.8-7.8); NEUTROPHILS % (AUTO) 80 % (42-75); PLATELET COUNT 299 10^3/uL (130-400); RED CELL DISTRIBUTION WIDTH 14.3 % (10.0-14.5); WHITE BLOOD COUNT 21.2 10^3/uL (4.3-11.0)
[2019-04-04] MEDS ORDERED: fentaNYL (OMNICELL DRIP KIT ONLY) 250 MCG/5 ML AMP ONE (20:47)
[2019-04-04 20:48] LABS: ALANINE AMINOTRANSFERASE 147 U/L (0-55); ALBUMIN 2.6 GM/DL (3.2-4.5); ALKALINE PHOSPHATASE 76 U/L (40-136); AMYLASE 49 U/L (25-125); BILIRUBIN,DIRECT 0.2 MG/DL (0.0-0.3); BILIRUBIN,INDIRECT 0.2 MG/DL; BILIRUBIN,TOTAL 0.4 MG/DL (0.1-1.0); BUN/CREATININE RATIO 19; CARBON DIOXIDE 16 MMOL/L (21-32); CHLORIDE 106 MMOL/L (98-107); CREATINE KINASE 274 U/L (30-200); CREATININE SERUM 1.16 MG/DL (0.60-1.30); GFR ESTIMATED > 60; GLUCOSE 166 MG/DL (70-105); LIPASE 34 U/L (8-78); MAGNESIUM 1.9 MG/DL (1.8-2.4); PHOSPHORUS 5.1 MG/DL (2.3-4.7); POTASSIUM 3.9 MMOL/L (3.6-5.0); SODIUM 134 MMOL/L (135-145); TOTAL PROTEIN 5.2 GM/DL (6.4-8.2); TRIGLYCERIDES 107 MG/DL (<150)
[2019-04-04] MEDS ORDERED: NS (IVPB) 100 ML ONE (20:48)
[2019-04-04 20:50] LABS: BAND NEUTROPHILS 4 %; LYMPHOCYTES % (MANUAL) 7 %; MONOCYTES % (MANUAL) 5 %; NEUTROPHILS % (MANUAL) 84 %
[2019-04-04 20:51] LABS: RBC MORPH NORMAL
[2019-04-04] MEDS ORDERED: D5W 100 ML IVPB 100 ML IV ONE (20:51)
[2019-04-04] MEDS ORDERED: NS IV 1000 ML 1,000 ML IV SCH (20:58)
[2019-04-04] MEDS ORDERED: PATIENT MAY USE OWN MEDS, ALL PO SCH (21:00)
[2019-04-04 21:14] LABS: FIBRINOGEN 370 MG/DL (221-496); INR 1.3 (0.8-1.4); PARTIAL THROMBOPLASTIN TIME 38 SEC (24-35); PROTHROMBIN TIME PATIENT 16.9 SEC (12.2-14.7)
[2019-04-04 21:16] LABS: FIBRIN DEGRADATION PRODUCTS > 20.00 UG/ML (0.00-0.49)
--- NOTE | 2019-04-04 21:37 | Anesthesia-Procedure Note ---
Procedures/Interventions Procedure Start/Stop/Diagnosis Date of Procedure: Apr 04, 2019 Start Time: 21:20 Stop Time: 21:30 Arterial Line Arterial Line Catheter: 20G Type: Radial Location: Right Procedure: prepped, draped in sterile fashion, good wave-form was obtained, patient tolerated procedure well, no immediate complications, post procedure area cleaned, post procedure dressing applied YOUSIF LOPEZ CRNA Apr 04, 2019 21:37
[2019-04-04] MEDS ORDERED: busPIRone 15 MG (BUSPAR) TABLET GT SCH (22:00)
[2019-04-04] MEDS: CALCIUM CHLORIDE 10% INJECTION 1 GM in NS (IVPB) 100 ML IV PRN (22:08)
[2019-04-04] MEDS ORDERED: CALCIUM CHLORIDE 10% INJECTION 1 GM in NS (IVPB) 100 ML IV PRN (22:15)
[2019-04-04] MEDS: MAGNESIUM 1 GM/100 ML IVPB 100 ML IV SCH ×2 (22:16→23:16)
[2019-04-04] MEDS: NOREPINEPHRINE 4 MG in NS (IVPB) 250 ML IV SCH (22:30)
[2019-04-04] MEDS: PROPOFOL DRIP (ICU) 100 ML IV SCH (22:32)
[2019-04-04] MEDS: LORazepam INJECTION FOR DRIP 20 MG in D5W 100 ML IVPB 90 ML IV SCH (23:00)
[2019-04-04] MEDS: fentaNYL INJECTION 1,250 MCG in NS (IVPB) 225 ML IV SCH (23:19)
[2019-04-04] MEDS: ARTIFICIAL TEARS OINT (LACRI-LUBE) 3.5 GM TUBE OU SCH (23:41)
[2019-04-05] VITALS (40 sets, daily range): BP systolic 91–166; BP diastolic 38–56
[2019-04-05] MEDS ORDERED: ACETAMINOPHEN 325 MG TABLET GT SCH
[2019-04-05] MEDS: MAGNESIUM 1 GM/100 ML IVPB 100 ML IV SCH ×9 (00:16→09:53)
[2019-04-05] MEDS ORDERED: MAGNESIUM 1 GM/100 ML IVPB 300 ML IV ONE (00:23)
[2019-04-05] MEDS: inSUlin ASPART (NovoLOG) 1 UNIT/0.01 ML (CHARGE PER UNIT) SC SCH ×5 (00:33→23:14)
[2019-04-05 01:11] LABS: ABG BASE EXCESS -9.7 MMOL/L (-2.5-2.5); ABG OXYGEN SATURATION 90 % (94-100); ABG PCO2 47 MMHG (35-45); ABG PO2 57 MMHG (79-93); ABG TCO2 19.6 MMOL/L (21.0-31.0); ALLENS TEST ART LINE; INSPIRED O2 90; PATIENT TEMP 92.3; VENTILATOR YES
[2019-04-05 01:12] LABS: ABG PH 7.18 (7.37-7.43)
[2019-04-05] MEDS: PROPOFOL DRIP (ICU) 100 ML IV SCH ×9 (01:12→22:51)
--- NOTE | 2019-04-05 01:12 | CARDIAC CATHETERIZATION ---
DATE OF SERVICE: CARDIAC CATHETERIZATION AND CORONARY INTERVENTION REPORT The patient is a 74-year-old man who presented with chest discomfort, ST segment depression, minimally elevated troponin and elevated D-dimer. Workup for pulmonary embolism was negative. Cardiac catheterization laboratory staff was called in for cardiac catheterization. Meanwhile, he suffered a cardiac arrest. He was successfully resuscitated from ventricular fibrillation to sinus tachycardia, but continued to exhibit low blood pressure, indicative of cardiogenic shock. Emergency cardiac catheterization was carried out. PROCEDURE: He was brought to the cardiac catheterization laboratory while on mechanical ventilation and the blood pressure was low (70 to 80 systolic). The right groin was prepped and draped in the usual sterile fashion. A 1% lidocaine with local anesthesia. Modified Seldinger technique was used to advance a 6-Montenegrin sheath in the right femoral artery. A 6-[place] JR4 catheter was used to carry out right coronary angiography. A 6-[place] JL4 guide catheter was used to engage the left coronary artery and carried out diagnostic angiography and this was followed by percutaneous intervention of the left anterior descending artery that was exhibiting 80% to 90% ostial/proximal stenosis and 80% to 90% proximal/mid vessel stenosis. PERCUTANEOUS INTERVENTION TO THE LEFT ANTERIOR DESCENDING ARTERY We gave 7000 units of intravenous heparin. A double bolus of Integrilin was given. We used a BMW wire and this was advanced across the lesions and the tip was placed in the distal vessel. We advanced Alpine Xience 3.5 x 12 mm stent to the more distal of the two lesions. This was accomplished with moderate difficulty because of marked proximal coronary calcification. We were able to put it in good position and the stent was deployed at 20 atmospheres. This showed that the previous 80% to 90% stenosis did not now have any significant residual. The stent balloon was removed. We advanced another Alpine Xience 3.5 x 12 mm stent to the more proximal lesion and this was carefully positioned and deployed at 20 atmospheres. The stents do not overlap. Subsequent angiography reveals no significant residual stenosis at the previous site of 80% to 90% stenoses. Flow throughout the vessel was normal (FLOYD 3). CORONARY ANGIOGRAPHY: All coronaries are calcified. Left main coronary artery did not exhibit significant obstructive disease. The left anterior descending artery had 80% to 90% ostial/proximal and 80% to 90% proximal/mid vessel stenosis, which was successfully stented as detailed above and following the stents, there is no significant residual stenosis. The left anterior descending artery has diffuse moderate disease. The left circumflex artery has diffuse moderate disease. The right coronary artery has diffuse moderate disease. CONCLUSIONS: 1. Coronary artery disease primarily consisting of 80% to 90% ostial/proximal and 80% to 90% proximal/mid vessel stenosEs of the left anterior descending artery to which successful stenting was carried out. Each stenosis was stented with Alpine Xience 3.5 x 12 mm stent (deployed at 20 atmospheres). The stents are not overlapping. The rest of the coronary vessels have diffuse moderate disease. DISCUSSION AND RECOMMENDATIONS: Hemodynamic support will be continued as needed. Echocardiography will be carried out to evaluate left ventricular systolic function because we were not able to advance the pigtail catheter into left ventricle because of what appears to be aortic stenosis. Prognosis remains guarded at the time of this dictation. Job ID: [id number] DocumentID: [id number] Dictated Date: 04/04/2019 20:45:05 Human Resources Operations Director Date: 04/05/2019 01:12:33 Dictated By: VIJAY SOLORZANO MD, MA, FACP, FACC, MTDD
[2019-04-05] MEDS: ARTIFICIAL TEARS OINT (LACRI-LUBE) 3.5 GM TUBE OU SCH ×4 (01:30→20:24)
[2019-04-05] MEDS ORDERED: MAGNESIUM SULFATE DRIP 500 ML IV SCH (01:34)
[2019-04-05] MEDS: POTASSIUM CL 10MEQ/50ML IVPB 50 ML IV SCH ×8 (01:36→18:08)
[2019-04-05] MEDS ORDERED: MAGNESIUM IV SCH (02:00)
[2019-04-05 02:56] LABS: ABG BASE EXCESS -9.4 MMOL/L (-2.5-2.5); ABG OXYGEN SATURATION 87 % (94-100); ABG PCO2 46 MMHG (35-45); ABG PO2 48 MMHG (79-93); ABG TCO2 19.9 MMOL/L (21.0-31.0); ALLENS TEST ART LINE; INSPIRED O2 90; PATIENT TEMP 90.7; VENTILATOR YES
[2019-04-05 02:58] LABS: ABG PH 7.19 (7.37-7.43)
[2019-04-05 02:59] LABS: BASOPHILS % (AUTO) 0 % (0-10); EOSINOPHILS % (AUTO) 0 % (0-10); HEMATOCRIT 41 % (40-54); HEMOGLOBIN 13.3 G/DL (13.3-17.7); LYMPHOCYTES # (AUTO) 1.7 X 10^3 (1.0-4.0); LYMPHOCYTES % (AUTO) 5 % (12-44); MEAN CORPUSCULAR HEMOGLOBIN 28 PG (25-34); MEAN CORPUSCULAR HGB CONC 33 G/DL (32-36); MEAN CORPUSCULAR VOLUME 85 FL (80-99); MEAN PLATELET VOLUME 8.9 FL (7.4-10.4); MONOCYTES # (AUTO) 3.3 X 10^3 (0.0-1.0); MONOCYTES % (AUTO) 10 % (0-12); NEUTROPHILS # (AUTO) 28.5 X 10^3 (1.8-7.8); NEUTROPHILS % (AUTO) 85 % (42-75); PLATELET COUNT 317 10^3/uL (130-400); RED CELL DISTRIBUTION WIDTH 14.6 % (10.0-14.5)
[2019-04-05 03:01] LABS: WHITE BLOOD COUNT 33.5 10^3/uL (4.3-11.0)
[2019-04-05 03:14] LABS: INR 1.2 (0.8-1.4); PROTHROMBIN TIME PATIENT 15.7 SEC (12.2-14.7)
[2019-04-05 03:17] LABS: BUN/CREATININE RATIO 20; CALCIUM 7.7 MG/DL (8.5-10.1); CARBON DIOXIDE 14 MMOL/L (21-32); CHLORIDE 105 MMOL/L (98-107); CHOLESTEROL 109 MG/DL (< 200); CREATININE SERUM 1.04 MG/DL (0.60-1.30); GFR ESTIMATED > 60; GLUCOSE 232 MG/DL (70-105); HDL CHOLESTEROL 31 MG/DL (40-60); MAGNESIUM 3.7 MG/DL (1.8-2.4); PHOSPHORUS 3.7 MG/DL (2.3-4.7); POTASSIUM 4.6 MMOL/L (3.6-5.0); SODIUM 129 MMOL/L (135-145); TRIGLYCERIDES 230 MG/DL (<150); VLDL CHOLESTEROL 46 MG/DL (5-40)
[2019-04-05] MEDS ORDERED: CALCIUM GLUC. 10% 4.65 MEQ/10 ML VIAL ONE (03:42)
[2019-04-05] MEDS ORDERED: inSUlin ASPART (NovoLOG) 1 UNIT/0.01 ML (CHARGE PER UNIT) SC ONE ×2 (03:45)
[2019-04-05] MEDS ORDERED: NS (IVPB) 250 ML ONE (04:14)
[2019-04-05] MEDS ORDERED: NOREPINEPHRINE 4 MG/4 ML (LEVOPHED) AMP IV ONE (04:15)
[2019-04-05 04:17] LABS: BUN/CREATININE RATIO 20; CALCIUM 7.7 MG/DL (8.5-10.1); CARBON DIOXIDE 14 MMOL/L (21-32); CHLORIDE 105 MMOL/L (98-107); CREATININE SERUM 1.04 MG/DL (0.60-1.30); GFR ESTIMATED > 60; GLUCOSE 232 MG/DL (70-105); POTASSIUM 4.6 MMOL/L (3.6-5.0); SODIUM 129 MMOL/L (135-145)
[2019-04-05] MEDS: NOREPINEPHRINE 4 MG in NS (IVPB) 250 ML IV SCH ×6 (04:27→21:15)
[2019-04-05 04:31] LABS: ALANINE AMINOTRANSFERASE 181 U/L (0-55); ALBUMIN 2.9 GM/DL (3.2-4.5); ALKALINE PHOSPHATASE 77 U/L (40-136); BILIRUBIN,TOTAL 0.4 MG/DL (0.1-1.0); TOTAL PROTEIN 5.6 GM/DL (6.4-8.2)
--- NOTE | 2019-04-05 06:00 | Pulmonary Consultation ---
History of Present Illness History of Present Illness Date of Consultation 04/05/19 05:55 Time Seen by Provider: 05:55 Date of Admission History of Present Illness 74yo presented secondary to CP and found to have an elevated troponin. Allergies and Home Medications Allergies Coded Allergies: No Known Drug Allergies (Unverified , 08/18/18) Home Medications Hydrocodone/Acetaminophen 1 Each Tablet, 1 EACH PO Q6H PRN for PAIN-MODERATE Prescribed by: RICARDO TEMPLE on 08/18/18 [id number] Past Gzmsbgh-Mezxhu-Ifuzqc Hx Past Med/Social Hx: Reviewed Nursing Past Med/Soc Hx Patient Social History Alcohol Use: Denies Use Recreational Drug Use: No Smoking Status: Former Smoker Type Used: Cigarettes Former Smoker, Quit: Mar 03, 2014 2nd Hand Smoke Exposure: No Recent Foreign Travel: No Contact w/Someone Who Travel: No Recent Infectious Disease Expo: No Recent Hopitalizations: No Seasonal Allergies Seasonal Allergies: No Past Medical History Surgeries: Yes Tonsillectomy Respiratory: Yes COPD Cardiac: Yes High Cholesterol, Hypertension, Valvular Heart Disease Neurological: No Genitourinary: No Gastrointestinal: Yes Gastroesophageal Reflux Musculoskeletal: Yes (chronic hip pain) Arthritis, Chronic Back Pain Endocrine: No HEENT: No Cancer: No Psychosocial: No Integumentary: No Blood Disorders: No Family Medical History Reviewed Nursing Family Hx (unable to obtain) Review of Systems Time Seen by Provider: 05:56 Sepsis Event Evaluation Height, Weight, BMI Height: 5'11.00" Weight: 245lbs. oz. 111.018991kg; BMI Method:Stated Exam Exam Vital Signs Date Time Temp Pulse Resp B/P (MAP) Pulse Ox O2 Delivery O2 Flow Rate FiO2 04/05/19 05:45 92.8 04/05/19 05:00 64 19 109/46 (67) 94 Mechanical Ventilator 90.00 04/05/19 04:00 60 19 106/46 (66) 95 Mechanical Ventilator 90.00 04/05/19 03:43 111/47 04/05/19 03:00 53 20 97/44 (61) 97 Mechanical Ventilator 90.00 04/05/19 02:45 54 19 100/47 (64) 94 Mechanical Ventilator 90.00 04/05/19 02:30 56 19 108/49 (68) 94 Mechanical Ventilator 90.00 04/05/19 02:30 54 20 96 90 04/05/19 02:15 55 19 116/54 (74) 95 Mechanical Ventilator 90.00 04/05/19 02:00 91.0 04/05/19 02:00 55 20 111/53 (72) 95 Mechanical Ventilator 90.00 04/05/19 01:45 57 19 91/49 (63) 96 Mechanical Ventilator 90.00 04/05/19 01:30 91.7 04/05/19 01:30 58 19 92/49 (63) 96 Mechanical Ventilator 90.00 04/05/19 01:15 60 19 97/50 (66) 96 Mechanical Ventilator 90.00 04/05/19 01:15 91.9 04/05/19 01:12 99/51 04/05/19 01:00 92.2 04/05/19 01:00 63 04/05/19 01:00 62 19 100/52 (68) 97 Mechanical Ventilator 90.00 04/05/19 00:45 93.0 04/05/19 00:30 64 19 97/51 (66) 96 Mechanical Ventilator 90.00 04/05/19 00:30 93.2 04/05/19 00:15 66 20 93/50 (64) 97 Mechanical Ventilator 90.00 04/05/19 00:15 93.4 04/05/19 00:00 93.9 04/05/19 00:00 69 16 97/53 (68) 97 Mechanical Ventilator 90.00 04/04/19 23:45 72 20 103/53 (70) 98 Mechanical Ventilator 90.00 04/04/19 23:45 94.0 04/04/19 23:30 94.3 04/04/19 23:30 76 20 98/51 (67) 98 Mechanical Ventilator 90.00 04/04/19 23:15 82 21 139/64 (89) 98 Mechanical Ventilator 90.00 04/04/19 23:15 94.7 04/04/19 23:00 85 22 142/63 (89) 96 Mechanical Ventilator 90.00 04/04/19 23:00 94.8 04/04/19 23:00 98.8 85 22 142/63 96 Mechanical Ventilator 90.00 04/04/19 22:46 87 25 97 100 04/04/19 22:46 Mechanical Ventilator 90.00 04/04/19 22:45 85 24 135/62 (86) 96 Mechanical Ventilator 100.00 04/04/19 22:45 95.0 04/04/19 22:32 98.8 93 21 88/51 91 Mechanical Ventilator 100.00 04/04/19 22:30 95.5 04/04/19 22:30 82 20 134/66 (88) 96 Mechanical Ventilator 100.00 04/04/19 22:15 83 22 123/58 (79) 96 Mechanical Ventilator 100.00 04/04/19 22:15 95.8 04/04/19 22:00 93 21 88/51 (63) 91 Mechanical Ventilator 100.00 04/04/19 22:00 95.9 04/04/19 21:45 96.0 04/04/19 21:45 89 21 92/54 (67) 91 Mechanical Ventilator 100.00 04/04/19 21:30 90 21 102/55 (71) 94 Mechanical Ventilator 100.00 04/04/19 21:30 96.1 04/04/19 21:21 94 27 95 100 04/04/19 21:20 97 11 130/72 (91) 91 Mechanical Ventilator 100.00 04/04/19 21:14 85 04/04/19 21:11 97.0 04/04/19 20:00 98.8 04/04/19 20:00 25 94 100 04/04/19 19:51 97.9 117 18 95/59 (71) 93 Ambu Bag 10.00 04/04/19 19:29 134 20 130/114 89 04/04/19 18:11 98 04/04/19 16:39 Room Air 04/04/19 16:39 98.3 94 14 150/73 (98) 96 Room Air I & O 04/05/19 07:00 Intake Total 2600 ml Balance 2600 ml Height & Weight Height: 5'11.00" Weight: 245lbs. oz. 111.678497gn; BMI Method:Stated General Appearance: Obese, Other (intubated) HEENT: Other (intubated) Neck: Other (central line in place) Respiratory: Respiratory Distress, Rhonci, Other (intubated- being bagged) Cardiovascular: No Murmur, Tachycardia Capillary Refill: Less Than 3 Seconds Extremity: Pedal Edema (minimal in right foot, left foot without edema) Neurologic/Psychiatric: Other (sedated) Skin: Normal Color, Warm/Dry; No Ecchymosis Results Lab Laboratory Tests 04/04/19 16:45 04/04/19 20:05 04/04/19 22:45 04/05/19 02:40 Assessment/Plan Assessment/Plan Acute respiratory failure with ARDS -Pa02/Fi02 = 53 -Continue vent -decrease Vt to 470 Increase RR to 24 -Increase PEEP to 14 -repeat ABG in 1hr Acute NSTEMI s/p code blue -S/p Cath with stenting to LAD -Artic sun was initiated -Cardiology following Hyperglycemia -Start nonDKA insulin gtt Leukocytosis -[place] culture -Add zosyn Hypotension -Levophed -Liter bolus of LR -increase IVF to 150 Hemoptysis -Started prior to admission -Pt will need bronchoscopy once stable -CTA is negative for PE Metabolic lactic acidosis -give 2 amps Bicarb -will probably need bicarb gtt. Hyponatremia CAD NANCY FUENTES DO Apr 05, 2019 06:00
[2019-04-05] MEDS ORDERED: POTASSIUM CHLORIDE INJ 20 MEQ in NS IV 1000 ML 1,000 ML IV SCH (06:01)
[2019-04-05] MEDS ORDERED: SODIUM BICARB 8.4% 50 MEQ/50 ML VIAL IV ONE ×2 (06:15→09:30)
[2019-04-05] MEDS ORDERED: inSUlin REGULAR TPN/DRIP ONLY 250 UNITS in NORMAL SALINE 250 ML IV SCH (06:15)
[2019-04-05] MEDS ORDERED: PIPERACILLIN/TAZOBACTAM (BULK) 4.5 GM in NS (IVPB) 100 ML IV SCH (06:15)
[2019-04-05] MEDS: KCL 20 MEQ TAB (K-DUR) PO SCH (06:31)
[2019-04-05] MEDS ORDERED: fentaNYL (OMNICELL DRIP KIT ONLY) 250 MCG/5 ML AMP ONE (06:44)
[2019-04-05] MEDS ORDERED: NS (IVPB) 100 ML ONE (06:44)
[2019-04-05] MEDS ORDERED: NORMAL SALINE 250 ML ONE (06:45)
[2019-04-05] MEDS ORDERED: inSUlin (REGULAR) HUMAN 1 UNIT/0.01 ML (CHARGE PER UNIT) ONE (06:47)
--- NOTE | 2019-04-05 06:47 | Progress Note-Hospitalist ---
Subjective HPI/CC On Admission Date Seen by Provider: Apr 05, 2019 Time Seen by Provider: 06:43 Pt is a 74yoCM who presented to the ER due to chest pain. History is obtained only through the records because he is intubated. Reportedly he had been having chest pain on and off and putting it off because it got better on it's own. He was found to have a mildly elevated troponin and d-dimer so went to CT for CTA to rule out PE or dissection. CTA chest was negative and shortly upon return to the ER he was noticed to be gurgling and in v-fib arrest. ACLS protocol was initiated in the ER and he was shocked x1 with conversion to PEA. He received epi pushes x1 and CPR and ultimately had ROSC. Decision was made to take to emergent laboratory clerk and initiate arctic sun therapy as he was unable to follow commands. He was intubated in the ER and central line was placed. I was later able to talk to the who states that he has been having chest pain and dyspnea with exertion that resolved with rest. He had been to see his Primary ca re provider a couple of times over the last month for a cough and SOB. He was treated with inhalers, steroids, and antibiotics without improvement. He had worsening pain today and his decided to bring him to the ER. Subjective/Events-last exam Pt is sedated and intubated. ROS unable to be obtained. Discussed with RN and Dr Penny. had relatively uneventful night after arrival to the ICU. Reached goal temperature at 0145. Daughter at bedside and updated on current status. All questions answered. Focused Exam Lactate Level 04/04/19 22:45: Lactic Acid Level 2.53*H 04/05/19 03:35: Lactic Acid Level 1.85 04/05/19 08:15: Lactic Acid Level 2.10*H Lactic Acid Level Laboratory Tests Test 04/05/19 08:15 Lactic Acid Level 2.10 MMOL/L (0.50-2.00) *H Objective Exam Vital Signs Vital Signs Date Time Temp Pulse Resp B/P (MAP) Pulse Ox O2 Delivery O2 Flow Rate FiO2 04/05/19 09:00 64 25 153/53 (86) 92 Mechanical Ventilator 40.00 04/05/19 07:47 40 04/05/19 07:29 93.1 Capillary Refill : Less Than 3 Seconds General Appearance: Obese, Other (intubated and sedated) HEENT: Other (ETT in place) Neck: Other (central line in place) Respiratory: Respiratory Distress, Rhonci, Other (intubated) Cardiovascular: Regular Rate, Rhythm, No Murmur Gastrointestinal: Normal Bowel Sounds, Non Tender, Soft Genital/Rectal: Other (gaming in place with clear yellow urine) Extremity: No Pedal Edema Neurologic/Psychiatric: Other (sedated) Skin: Normal Color, Warm/Dry Results/Procedures Lab Laboratory Tests 04/04/19 16:45 04/04/19 20:05 04/04/19 22:45 04/05/19 02:40 Patient resulted labs reviewed. Imaging: Reviewed Imaging Report Assessment/Plan Assessment and Plan Assess & Plan/Chief Complaint Cardiac Arrest Diagnosis/Problems Diagnosis/Problems (1) Cardiac arrest with ventricular fibrillation Assessment & Plan: v-fib arrest on 04/04 shock x1 ROSC obtained and arctic sun started at 2000 04/04 and goal temperature reached at 0145 04/05 arctic sun protocol Pulm consulted, appreciate recs (2) Myocardial infarction Assessment & Plan: Underwent emergent high risk cath yesterday stents deployed cardiology consulted appreciate recs echo ordered Qualifiers: Myocardial infarction type: non-ST elevation myocardial infarction Qualified Codes: I21.4 - Non-ST elevation (NSTEMI) myocardial infarction (3) CAD (coronary artery disease) Assessment & Plan: s/p emergent cath and stents x2 in LAD Cardiology consulted, appreciate recs Aspirin and Plavix started Qualifiers: Coronary Disease-Associated Artery/Lesion type: [place] artery [place] vs. transplanted heart: [place] heart Associated angina: with stable angina Qu alified Codes: I25.118 - Atherosclerotic heart disease of [place] coronary artery with other forms of angina pectoris (4) Shock Assessment & Plan: Remains on levophed Cardiogenic shock Cardiology consulted Continue IVF Monitor I/Os closely given cold diuresis (5) Acute respiratory failure Assessment & Plan: intubated post code Pulm consulted, appreciate recs Discussed with Dr Penny Concern for developing ARDS when shock improves will work on keeping net negative I/Os Qualifiers: Respiratory failure complication: hypercapnia Qualified Codes: J96.02 - Acute respiratory failure with hypercapnia (6) Metabolic acidosis Assessment & Plan: metabolic acidosis 2 amps of bicarb given this AM Consider bicarb gtt pending next lab draw (7) Shock liver Assessment & Plan: trend (8) Hyperglycemia Assessment & Plan: No known diagnosis of diabetes Insulin gtt started Check a1c (9) Leukocytosis Assessment & Plan: new and likely reactive started on Zosyn this AM MARY AGUILAR MD Apr 05, 2019 6:46 am
[2019-04-05] MEDS: fentaNYL INJECTION 1,250 MCG in NS (IVPB) 225 ML IV SCH ×2 (07:03→20:00)
[2019-04-05] MEDS: PIPERACILLIN/TAZO 4.5 GM/NS 100 ML IV SCH ×6 (07:24→22:14)
[2019-04-05] MEDS: HYDROCORTISONE 100 MG/2 ML (Solu-CORTEF) VIAL IV SCH ×3 (07:24→22:14)
[2019-04-05] MEDS ORDERED: ACETAMINOPHEN 650 MG SUPP (TYLENOL) RC PRN (07:45)
[2019-04-05] MEDS ORDERED: PIPERACILLIN/TAZOBACTAM (BULK) 4.5 GM in NS (IVPB) 100 ML IV NR (08:00)
[2019-04-05] MEDS ORDERED: SUCCINYLCHOLINE INJ 100 MG/5 ML SYR INJ ONE (08:27)
[2019-04-05] MEDS ORDERED: EPINEPHrine 0.1 MG/ML 10 ML (HOSPIRA) SYR IJ ONE (08:27)
[2019-04-05] MEDS ORDERED: ETOMIDATE IV SOLN 20 MG/10 ML VIAL IV ONE (08:27)
[2019-04-05] MEDS ORDERED: MIDAZOLAM 5 MG/5 ML (VERSED) VIAL IJ ONE (08:27)
[2019-04-05] MEDS: NS W/KCL 20 MEQ/L 1,000 ML IV SCH ×2 (08:52→14:52)
--- NOTE | 2019-04-05 08:53 | NUR ---
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 Hypothermic therapy in place. 144- Normothermic target temperature reached.
[2019-04-05 09:06] LABS: ABG BASE EXCESS -6.6 MMOL/L (-2.5-2.5); ABG OXYGEN SATURATION 84 % (94-100); ABG PCO2 46 MMHG (35-45); ABG PO2 43 MMHG (79-93)
[2019-04-05 09:09] LABS: ABG PH 7.24 (7.37-7.43); ALLENS TEST ARTLINE; INSPIRED O2 40%; VENTILATOR YES
[2019-04-05 09:10] LABS: PATIENT TEMP 91.9
[2019-04-05 09:31] LABS: BILIRUBIN,URINE NEGATIVE (NEGATIVE); COLOR,URINE YELLOW; GLUCOSE, URINE (UA) NEGATIVE (NEGATIVE); KETONES,URINE NEGATIVE (NEGATIVE); LEUKOCYTE ESTERASE ,URINE 2+ (NEGATIVE); NITRITE,URINE NEGATIVE (NEGATIVE); PH,URINE 6 (5-9); PROTEIN,URINE NEGATIVE (NEGATIVE); UROBILINOGEN,URINE NORMAL (NORMAL)
[2019-04-05] MEDS: ASPIRIN 81 MG CHEW (CHILDREN'S ASA) PO SCH (09:32)
[2019-04-05] MEDS: CLOPIDOGREL 75 MG (PLAVIX) TABLET PO SCH (09:32)
[2019-04-05 09:37] LABS: CLARITY,URINE CLEAR
[2019-04-05 09:38] LABS: BACTERIA,URINE NEGATIVE /HPF
--- NOTE | 2019-04-05 09:47 | Diagnostic Imaging Report ---
EXAM: Portable AP chest at 3:59 a.m. INDICATION: Respiratory distress FINDINGS: The cardiomegaly and the diffuse alveolar/interstitial pulmonary infiltrates seen on the prior exam of 04/04/2019 are again evident. These abnormal densities may be secondary to pneumonia, atelectasis and/or pulmonary edema. The density in the left midlung and left lung base is somewhat greater than on the prior exam while the right upper lobe does seem slightly better aerated. The mediastinum is not widened. The osseous structures are intact. The supportive tubes and lines seen previously are similar in position. IMPRESSION: The appearance of the chest has worsened as there is greater involvement of the left lung by pneumonia/atelectasis and/or pulmonary edema. A followup study would be recommended for continued evaluation. Dictated by: Dictated on workstation # [id number]
[2019-04-05 10:14] LABS: BASOPHILS % (AUTO) 0 % (0-10); EOSINOPHILS # (AUTO) 0.1 10^3/uL (0.0-0.3); EOSINOPHILS % (AUTO) 0 % (0-10); LYMPHOCYTES # (AUTO) 1.2 X 10^3 (1.0-4.0); LYMPHOCYTES % (AUTO) 5 % (12-44); MEAN CORPUSCULAR HGB CONC 33 G/DL (32-36); MEAN CORPUSCULAR VOLUME 85 FL (80-99); MEAN PLATELET VOLUME 8.3 FL (7.4-10.4); MONOCYTES # (AUTO) 2.6 X 10^3 (0.0-1.0); MONOCYTES % (AUTO) 10 % (0-12); NEUTROPHILS # (AUTO) 22.4 X 10^3 (1.8-7.8); NEUTROPHILS % (AUTO) 85 % (42-75); RED CELL DISTRIBUTION WIDTH 14.6 % (10.0-14.5)
[2019-04-05 10:15] LABS: HEMATOCRIT 42 % (40-54); HEMOGLOBIN 13.8 G/DL (13.3-17.7); MEAN CORPUSCULAR HEMOGLOBIN 28 PG (25-34); PLATELET COUNT 285 10^3/uL (130-400); WHITE BLOOD COUNT 28.9 10^3/uL (4.3-11.0)
[2019-04-05 10:22] LABS: BUN/CREATININE RATIO 20; CALCIUM 7.6 MG/DL (8.5-10.1); CARBON DIOXIDE 19 MMOL/L (21-32); CHLORIDE 106 MMOL/L (98-107); CREATININE SERUM 0.95 MG/DL (0.60-1.30); GFR ESTIMATED > 60; GLUCOSE 203 MG/DL (70-105); MAGNESIUM 3.8 MG/DL (1.8-2.4); PHOSPHORUS 3.8 MG/DL (2.3-4.7); POTASSIUM 3.8 MMOL/L (3.6-5.0); SODIUM 135 MMOL/L (135-145)
[2019-04-05 10:31] LABS: INR 1.1 (0.8-1.4); PROTHROMBIN TIME PATIENT 14.5 SEC (12.2-14.7)
[2019-04-05] MEDS ORDERED: AMIODARONE FOR BOLUS 150 MG in D5W 100 ML IVPB 100 ML IV ONE (10:45)
--- NOTE | 2019-04-05 11:14 | Progress Note-Cardiology ---
Cardiology SOAP Progress Note Subjective: Unresponsive Intubated and on mech vent On therapeutic hypothermia Objective: I&O/Vital Signs 04/04/19 04/04/19 04/04/19 04/04/19 23:15 23:15 23:30 23:30 Temp 94.7 94.3 Pulse 82 76 Resp 21 20 B/P (MAP) 139/64 (89) 98/51 (67) Pulse Ox 98 98 O2 Delivery Mechanical Ventilator Mechanical Ventilator O2 Flow Rate 90.00 90.00 04/04/19 04/04/19 04/05/19 04/05/19 23:45 23:45 00:00 00:00 Temp 94.0 93.9 Pulse 72 69 Resp 20 16 B/P (MAP) 103/53 (70) 97/53 (68) Pulse Ox 98 97 O2 Delivery Mechanical Ventilator Mechanical Ventilator O2 Flow Rate 90.00 90.00 04/05/19 04/05/19 04/05/19 04/05/19 00:00 00:15 00:15 00:30 Temp 93.4 93.2 Pulse 66 Resp 20 B/P (MAP) 93/50 (64) Pulse Ox 97 O2 Delivery Mechanical Ventilator Mechanical Ventilator O2 Flow Rate 90.00 04/05/19 04/05/19 04/05/19 04/05/19 00:30 00:45 01:00 01:00 Temp 93.0 Pulse 64 62 63 Resp 19 19 B/P (MAP) 97/51 (66) 100/52 (68) Pulse Ox 96 97 O2 Delivery Mechanical Ventilator Mechanical Ventilator O2 Flow Rate 90.00 90.00 04/05/19 04/05/19 04/05/19 04/05/19 01:00 01:12 01:15 01:15 Temp 92.2 91.9 Pulse 60 Resp 19 B/P (MAP) 99/51 97/50 (66) Pulse Ox 96 O2 Delivery Mechanical Ventilator O2 Flow Rate 90.00 04/05/19 04/05/19 04/05/19 04/05/19 01:30 01:30 01:45 01:45 Temp 91.7 91.4 Pulse 58 57 Resp 19 19 B/P (MAP) 92/49 (63) 91/49 (63) Pulse Ox 96 96 O2 Delivery Mechanical Ventilator Mechanical Ventilator O2 Flow Rate 90.00 90.00 04/05/19 04/05/19 04/05/19 04/05/19 02:00 02:00 02:15 02:15 Temp 91.0 91.0 Pulse 55 55 Resp 19 B/P (MAP) 111/53 (72) 116/54 (74) Pulse Ox 95 95 O2 Delivery Mechanical Ventilator Mechanical Ventilator O2 Flow Rate 90.00 90.00 04/05/19 04/05/19 04/05/19 04/05/19 02:30 02:30 02:30 02:45 Temp 90.8 90.6 Pulse 54 56 Resp 19 B/P (MAP) 108/49 (68) Pulse Ox 96 94 O2 Delivery Mechanical Ventilator O2 Flow Rate 90.00 FiO2 90 04/05/19 04/05/19 04/05/19 04/05/19 02:45 03:00 03:00 03:15 Temp 90.4 90.1 Pulse 54 53 Resp 20 B/P (MAP) 100/47 (64) 97/44 (61) Pulse Ox 94 97 O2 Delivery Mechanical Ventilator Mechanical Ventilator O2 Flow Rate 90.00 90.00 04/05/19 04/05/19 04/05/19 04/05/19 03:30 03:43 03:45 04:00 Temp 90.1 90.1 Pulse 60 Resp 19 B/P (MAP) 111/47 106/46 (66) Pulse Ox 95 O2 Delivery Mechanical Ventilator O2 Flow Rate 90.00 04/05/19 04/05/19 04/05/19 04/05/19 04:00 04:00 04:15 04:30 Temp 90.5 90.7 91.2 O2 Delivery Mechanical Ventilator 04/05/19 04/05/19 04/05/19 04/05/19 04:45 05:00 05:00 05:45 Temp 91.6 92.2 92.8 Pulse 64 Resp 19 B/P (MAP) 109/46 (67) Pulse Ox 94 O2 Delivery Mechanical Ventilator O2 Flow Rate 90.00 04/05/19 04/05/19 04/05/19 04/05/19 06:00 06:00 06:20 07:00 Temp 93.0 Pulse 65 62 61 Resp 20 26 B/P (MAP) 125/48 (73) Pulse Ox 95 95 O2 Delivery Mechanical Ventilator O2 Flow Rate 90.00 FiO2 50 04/05/19 04/05/19 04/05/19 04/05/19 07:00 07:29 07:47 08:00 Temp 93.1 Pulse 62 64 66 Resp 25 26 26 B/P (MAP) 119/46 (70) 150/54 (86) Pulse Ox 91 91 93 O2 Delivery Mechanical Ventilator Mechanical Ventilator O2 Flow Rate 50.00 50.00 FiO2 40 04/05/19 04/05/19 04/05/19 04/05/19 08:00 08:32 09:00 10:53 Pulse 65 64 59 Resp 25 26 B/P (MAP) 153/53 (86) Pulse Ox 92 92 O2 Delivery Mechanical Ventilator Mechanical Ventilator O2 Flow Rate 40.00 FiO2 45 04/05/19 00:00 Intake Total 2100 ml Output Total 800 ml Balance 1300 ml Weight (Pounds): 277 Weight (Ounces): 0.1 Weight (Calculated Kilograms): 125.717890 Constitutional: other (intubated and being ventilated, unresponsive) Respiratory: other Cardiovascular: regular rate-rhythm, S1 and S2, systolic murmur (soft SERAFIN at card base) Gastrointestional: distended; No audible bowel sounds Extremities: swelling (mild edema); No clubbing, No cyanosis Neurologic/Psychiatric: other (unresponsive) Skin: No rash on exposed areas, No ulcerations on exposed areas Results/Procedures: Labs Laboratory Tests 04/04/19 16:45: White Blood Count 16.4H, Red Blood Count 5.16, Hemoglobin 14.2, Hematocrit 43, Mean Corpuscular Volume 83, Mean Corpuscular Hemoglobin 28, Mean Corpuscular Hemoglobin Concent 33, Red Cell Distribution Width 14.5, Platelet Count 289, Mean Platelet Volume 8.9, Neutrophils (%) (Auto) 88H, Lymphocytes (%) (Auto) 7L, Monocytes (%) (Auto) 5, Eosinophils (%) (Auto) 0, Basophils (%) (Auto) 0, Neutrophils # (Auto) 14.4H, Lymphocytes # (Auto) 1.1, Monocytes # (Auto) 0.9, Eosinophils # (Auto) 0.0, Basophils # (Auto) 0.0, Neutrophils % (Manual) 84, Lymphocytes % (Manual) 5, Monocytes % (Manual) 8, Band Neutrophils 3, Blood Morphology Comment NORMAL, Prothrombin Time 13.7, INR Comment 1.0, Activated Partial Thromboplast Time 27, D-Dimer 2.18H, Sodium Level 134L, Potassium Level 4.4, Chloride Level 100, Carbon Dioxide Level 19L, Anion Gap 15H, Blood Urea Nitrogen 23H, Creatinine 1.26, Estimat Glomerular Filtration Rate 56, BUN/Creatinine Ratio 18, Glucose Level 156H, Calcium Level 9.5, Corrected Calcium 9.7, Magnesium Level 1.9, Total Bilirubin 0.5, Aspartate Amino Transf (AST/SGOT) 33, Alanine Aminotransferase (ALT/SGPT) 21, Alkaline Phosphatase 82, Myoglobin 440.9H, Troponin I 0.114H, C-Reactive Protein High Sensitivity 2.70H, B-Type Natriuretic Peptide 285.0H, Total Protein 7.5, Albumin 3.8, Lipase 36 04/04/19 19:35: Blood Gas Puncture Site RRAD, Blood Gas Patient Temperature 98.3, Arterial Blood pH 7.05*L, Arterial Blood Partial Pressure CO2 61H, Arterial Blood Partial Pressure O2 159H, Arterial Blood HCO3 16*L, Arterial Blood Total CO2 18.0L, Arterial Blood Oxygen Saturation 98, Arterial Blood Base Excess -12.7L, Omid Test YES-POS, Blood Gas Ventilator Setting NO, Blood Gas Inspired Oxygen 100% 04/04/19 20:05: White Blood Count 21.2H, Red Blood Count 4.65, Hemoglobin 12.8L, Hematocrit 40, Mean Corpuscular Volume 85, Mean Corpuscular Hemoglobin 28, Mean Corpuscular Hemoglobin Concent 32, Red Cell Distribution Width 14.3, Platelet Count 299, Mean Platelet Volume 8.9, Neutrophils (%) (Auto) 80H, Lymphocytes (%) (Auto) 11L , Monocytes (%) (Auto) 9, Eosinophils (%) (Auto) 0, Basophils (%) (Auto) 0, Neutrophils # (Auto) 16.9H, Lymphocytes # (Auto) 2.4, Monocytes # (Auto) 1.9H, Eosinophils # (Auto) 0.0, Basophils # (Auto) 0.0, Neutrophils % (Manual) 84, Lymphocytes % (Manual) 7, Monocytes % (Manual) 5, Band Neutrophils 4, Blood Morphology Comment NORMAL, Prothrombin Time 16.9H, INR Comment 1.3, Activated Partial Thromboplast Time 38H, D-Dimer > 20.00*H, Sodium Level 134L, Potassium Level 3.9, Chloride Level 106, Carbon Dioxide Level 16L, Anion Gap 12, Blood Urea Nitrogen 22H, Creatinine 1.16, Estimat Glomerular Filtration Rate > 60, BUN/Creatinine Ratio 19, Glucose Level 166H, Calcium Level 7.0L, Corrected Calcium 8.1L, Magnesium Level 1.9, Total Bilirubin 0.4, Aspartate Amino Transf (AST/SGOT) 152H, Alanine Aminotransferase (ALT/SGPT) 147H, Alkaline Phosphatase 76, Troponin I 0.485*H, Total Protein 5.2L, Albumin 2.6L, Lipase 34, Fibrinogen 370, Phosphorus Level 5.1H, Direct Bilirubin 0.2, Indirect Bilirubin 0.2, Total Creatine Kinase 274H, Triglycerides Level 107, Amylase Level 49 04/04/19 20:41: Lactic Acid Level 3.38*H 04/04/19 22:45: Potassium Level 5.2H, Lactic Acid Level 2.53*H 04/04/19 22:46: Glucometer 187H 04/05/19 00:23: Glucometer 216H 04/05/19 00:56: Blood Gas Puncture Site Hina SAUD, Blood Gas Patient Temperature 92.3, Arterial Blood pH 7.18*L, Arterial Blood Partial Pressure CO2 47H, Arterial Blood Partial Pressure O2 57L, Arterial Blood HCO3 18L, Arterial Blood Total CO2 19.6L, [place] rial Blood Oxygen Saturation 90L, Arterial Blood Base Excess -9.7L, Omid Test ART LINE, Blood Gas Ventilator Setting YES, Blood Gas Inspired Oxygen 90 04/05/19 01:10: Glucometer 223H 04/05/19 02:40: White Blood Count 33.5*H, Red Blood Count 4.82, Hemoglobin 13.3, Hematocrit 41, Mean Corpuscular Volume 85, Mean Corpuscular Hemoglobin 28, Mean Corpuscular Hemoglobin Concent 33, Red Cell Distribution Width 14.6H, Platelet Count 317, Mean Platelet Volume 8.9, Neutrophils (%) (Auto) 85H, Lymphocytes (%) (Auto) 5L, Monocytes (%) (Auto) 10, Eosinophils (%) (Auto) 0, Basophils (%) (Auto) 0, Neutrophils # (Auto) 28.5H, Lymphocytes # (Auto) 1.7, Monocytes # (Auto) 3.3H, Eosinophils # (Auto) 0.0, Basophils # (Auto) 0.0, Prothrombin Time 15.7H, INR Comment 1.2, Activated Partial Thromboplast Time 35, Blood Gas Puncture Site L RAD, Blood Gas Patient Temperature 90.7, Arterial Blood pH 7.19*L, Arterial Blood Partial Pressure CO2 46H, Arterial Blood Partial Pressure O2 48L, Arterial Blood HCO3 18L, Arterial Blood Total CO2 19.9L, Arterial Blood Oxygen Saturation 87L, Arterial Blood Base Excess -9.4L, Omid Test ART LINE, Blood Gas Ventilator Setting YES, Blood Gas Inspired Oxygen 90, Sodium Level 129L, Potassium Level 4.6, Chloride Level 105, Carbon Dioxide Level 14L, Anion Gap 10, Blood Urea Nitrogen 21H, Creatinine 1.04, Estimat Glomerular Filtration Rate > 60, BUN/Creatinine Ratio 20, Glucose Level 232H, Calcium Level 7.7L, Corrected Calcium 8.6, Phosphorus Level 3.7, Magnesium Level 3.7H, Total Bilirubin 0.4, Aspartate Amino Transf (AST/SGOT) 424H, Alanine Aminotransferase (ALT/SGPT) 181H , Alkaline Phosphatase 77, Total Protein 5.6L, Albumin 2.9L, Triglycerides Level 230H, Cholesterol Level 109, LDL Cholesterol Direct 57, VLDL Cholesterol 46H, HDL Cholesterol 31L 04/05/19 02:47: Glucometer 227H 04/05/19 03:35: Lactic Acid Level 1.85 04/05/19 03:40: Glucometer 237H 04/05/19 05:30: Glucometer 245H 04/05/19 06:40: Glucometer 241H 04/05/19 08:15: White Blood Count 28.9H, Red Blood Count 4.96, Hemoglobin 13.8, Hematocrit 42, Mean Corpuscular Volume 85, Mean Corpuscular Hemoglobin 28, Mean Corpuscular Hemoglobin Concent 33, Red Cell Distribution Width 14.6H, Platelet Count 285, Mean Platelet Volume 8.3, Neutrophils (%) (Auto) 85H, Lymphocytes (%) (Auto) 5L, Monocytes (%) (Auto) 10, Eosinophils (%) (Auto) 0, Basophils (%) (Auto) 0, Neutrophils # (Auto) 22.4H, Lymphocytes # (Auto) 1.2, Monocytes # (Auto) 2.6H, Eosinophils # (Auto) 0.1, Basophils # (Auto) 0.0, Prothrombin Time 14.5, INR Comment 1.1, Activated Partial Thromboplast Time 30, Sodium Level 135, Potassium Level 3.8, Chloride Level 106, Carbon Dioxide Level 19L, Anion Gap 10, Blood Urea Nitrogen 19H, Creatinine 0.95, Estimat Glomerular Filtration Rate > 60, BUN/Creatinine Ratio 20, Glucose Level 203H, Lactic Acid Level 2.10*H, Calcium Level 7.6L, Phosphorus Level 3.8, Magnesium Level 3.8H 04/05/19 08:45: Blood Gas Puncture Site L ARTLINE, Blood Gas Patient Temperature 91.9, Arterial Blood pH 7.24*L, Arterial Blood Partial Pressure CO2 46H, Arterial Blood Partial Pressure O2 43L, Arterial Blood HCO3 20L, Arterial Blood Total CO2 22.0, Arterial Blood Oxygen Saturation 84L, Arterial Blood Base Excess -6.6L, Omid Test ARTLINE, Blood Gas Ventilator Setting YES, Blood Gas Inspired Oxygen 40% 04/05/19 09:25: Urine Color YELLOW, Urine Clarity CLEAR, Urine pH 6, Urine Specific [place] 1.005L, Urine Protein NEGATIVE, Urine Glucose (UA) NEGATIVE, Urine Ketones NEGATIVE, Urine Nitrite NEGATIVE, Urine Bilirubin NEGATIVE, Urine Urobilinogen NORMAL, Urine Leukocyte Esterase 2+H, Urine RBC (Auto) 3+H, Urine RBC 2-5H, Urine WBC 5-10H, Urine Squamous Epithelial Cells NONE, Urine Crystals NONE, Urine Bacteria NEGATIVE, Urine Casts NONE, Urine Mucus NEGATIVE, Urine Culture Indicated YES 04/05/19 09:39: Glucometer 207H 04/05/19 10:56: Glucometer 247H Laboratory Tests 04/04/19 16:45 04/04/19 20:05 04/04/19 22:45 04/05/19 02:40 04/05/19 08:15 A/P: Assessment: Ac ME on 04/04/19 leading to VF cardiac arrest and cardiogenic shock CAD. Emergency cath of 04/04/29 showed ostial/prox 80-90% and prox/mid 80-90% stenoses of the LAD; each stented with Alpine Xience 3.5 x 12 at 20 shad; other vessels showed diffuse mod disease Echo of : LVEF 50-55%, mild to mod , grade 1 diastolic dysfunction, mild LA enlargement, RVSP 13 mmHg Therapeutic hypothermia post cardiac arrest, managed by Hospitalist and ICU services Brief runs of NSVT Plan: * Try to wean off pressors * iv amiodarone 1 gm over 24 hours * Not suitable for beta-blockers because of low bp. LUCIANA-inhib/ARB not mandatory because EF is greater than 50% * Monitor labs * I spoke with his daughter and answered questions. Prognosis is guarded VIJAY SOLORZANO MD FACP FAC CCDS Apr 05, 2019 11:14
[2019-04-05] MEDS: AMIODARONE INJECTION 450 MG in D5W IV SOLUTION (EXCEL) 250 ML IV SCH ×2 (11:52→21:43)
--- NOTE | 2019-04-05 12:00 | Physical Therapy Progress Note ---
Therapy Progress Note Orders received for therapy, patient ventilated and sedated at present time. We will check patient status 04/06/19. ZOEY LEIGH PT Apr 05, 2019 12:00
--- NOTE | 2019-04-05 12:32 | Occ Therapy Progress Note ---
Therapy Progress Note Pt sedated and on vent, not able to participate in OT eval. Will follow. AMY PALACIOS OT Apr 05, 2019 12:32
[2019-04-05 14:35] LABS: BASOPHILS % (AUTO) 0 % (0-10); EOSINOPHILS % (AUTO) 0 % (0-10); HEMATOCRIT 40 % (40-54); HEMOGLOBIN 12.9 G/DL (13.3-17.7); LYMPHOCYTES # (AUTO) 1.1 X 10^3 (1.0-4.0); LYMPHOCYTES % (AUTO) 5 % (12-44); MEAN CORPUSCULAR HEMOGLOBIN 27 PG (25-34); MEAN CORPUSCULAR HGB CONC 32 G/DL (32-36); MEAN CORPUSCULAR VOLUME 85 FL (80-99); MONOCYTES # (AUTO) 2.1 X 10^3 (0.0-1.0); MONOCYTES % (AUTO) 9 % (0-12); NEUTROPHILS # (AUTO) 20.8 X 10^3 (1.8-7.8); NEUTROPHILS % (AUTO) 87 % (42-75); PLATELET COUNT 292 10^3/uL (130-400); RED CELL DISTRIBUTION WIDTH 14.8 % (10.0-14.5)
[2019-04-05 14:51] LABS: INR 1.1 (0.8-1.4); PROTHROMBIN TIME PATIENT 14.6 SEC (12.2-14.7)
[2019-04-05 14:56] LABS: BUN/CREATININE RATIO 20; CALCIUM 6.9 MG/DL (8.5-10.1); CARBON DIOXIDE 19 MMOL/L (21-32); CHLORIDE 111 MMOL/L (98-107); CREATININE SERUM 0.82 MG/DL (0.60-1.30); GFR ESTIMATED > 60; GLUCOSE 174 MG/DL (70-105); MAGNESIUM 3.7 MG/DL (1.8-2.4); PHOSPHORUS 2.5 MG/DL (2.3-4.7); POTASSIUM 2.9 MMOL/L (3.6-5.0); SODIUM 137 MMOL/L (135-145)
[2019-04-05 14:57] LABS: ABG BASE EXCESS -6.9 MMOL/L (-2.5-2.5); ABG OXYGEN SATURATION 85 % (94-100); ABG PCO2 44 MMHG (35-45); ABG PO2 43 MMHG (79-93); ABG TCO2 21.6 MMOL/L (21.0-31.0)
[2019-04-05 15:00] LABS: ABG PH 7.25 (7.37-7.43); ALLENS TEST ART LINE; VENTILATOR YES
[2019-04-05] MEDS ORDERED: SODIUM BICARBONATE IV SCH (15:30)
[2019-04-05] MEDS ORDERED: POTASSIUM CHLORIDE IV SCH (15:30)
[2019-04-05] MEDS ORDERED: [UNRECOGNIZED DRUG - OTHER] IV SCH (15:30)
[2019-04-05] MEDS: SODIUM BICARBONATE IV SCH (15:47)
[2019-04-05] MEDS: KCL IV SCH (15:47)
[2019-04-05] MEDS: 1/2 NS IV SCH (15:47)
[2019-04-05 16:27] LABS: ALANINE AMINOTRANSFERASE 174 U/L (0-55); ALBUMIN 2.6 GM/DL (3.2-4.5); ALKALINE PHOSPHATASE 68 U/L (40-136); BILIRUBIN,TOTAL 0.3 MG/DL (0.1-1.0); BUN/CREATININE RATIO 20; CALCIUM 6.9 MG/DL (8.5-10.1); CARBON DIOXIDE 17 MMOL/L (21-32); CHLORIDE 111 MMOL/L (98-107); CREATININE SERUM 0.81 MG/DL (0.60-1.30); GFR ESTIMATED > 60; GLUCOSE 177 MG/DL (70-105); POTASSIUM 2.9 MMOL/L (3.6-5.0); SODIUM 138 MMOL/L (135-145)
[2019-04-05] MEDS: CALCIUM CHLORIDE 10% INJECTION 1 GM in NS (IVPB) 100 ML IV PRN (16:55)
[2019-04-05 20:23] LABS: BASOPHILS % (AUTO) 0 % (0-10); EOSINOPHILS % (AUTO) 0 % (0-10); HEMATOCRIT 42 % (40-54); HEMOGLOBIN 13.7 G/DL (13.3-17.7); LYMPHOCYTES % (AUTO) 4 % (12-44); MEAN CORPUSCULAR HEMOGLOBIN 28 PG (25-34); MEAN CORPUSCULAR HGB CONC 33 G/DL (32-36); MEAN CORPUSCULAR VOLUME 85 FL (80-99); MEAN PLATELET VOLUME 8.9 FL (7.4-10.4); MONOCYTES # (AUTO) 2.2 X 10^3 (0.0-1.0); MONOCYTES % (AUTO) 9 % (0-12); NEUTROPHILS % (AUTO) 87 % (42-75); PLATELET COUNT 282 10^3/uL (130-400); RED CELL DISTRIBUTION WIDTH 14.7 % (10.0-14.5); WHITE BLOOD COUNT 24.2 10^3/uL (4.3-11.0)
[2019-04-05 20:48] LABS: ALANINE AMINOTRANSFERASE 185 U/L (0-55); ALBUMIN 2.9 GM/DL (3.2-4.5); ALKALINE PHOSPHATASE 73 U/L (40-136); BILIRUBIN,TOTAL 0.4 MG/DL (0.1-1.0); BUN/CREATININE RATIO 17; CALCIUM 7.7 MG/DL (8.5-10.1); CARBON DIOXIDE 18 MMOL/L (21-32); CHLORIDE 109 MMOL/L (98-107); CREATININE SERUM 0.86 MG/DL (0.60-1.30); GFR ESTIMATED > 60; GLUCOSE 129 MG/DL (70-105); MAGNESIUM 4.1 MG/DL (1.8-2.4); PHOSPHORUS 3.9 MG/DL (2.3-4.7); POTASSIUM 3.5 MMOL/L (3.6-5.0); SODIUM 138 MMOL/L (135-145); TOTAL PROTEIN 5.6 GM/DL (6.4-8.2)
--- NOTE | 2019-04-05 23:29 | NUR ---
CVP assessed at this time, 13 noted
[2019-04-06] VITALS (31 sets, daily range): BP systolic 91–126; BP diastolic 41–48
[2019-04-06] MEDS: NOREPINEPHRINE 4 MG in NS (IVPB) 250 ML IV SCH ×13 (00:20→22:09)
[2019-04-06] MEDS: 1/2 NS IV SCH ×2 (00:38→09:36)
[2019-04-06] MEDS: SODIUM BICARBONATE IV SCH ×10 (00:38→21:13)
[2019-04-06] MEDS: KCL IV SCH ×2 (00:38→09:36)
[2019-04-06] MEDS: PROPOFOL DRIP (ICU) 100 ML IV SCH ×8 (01:16→20:35)
[2019-04-06] MEDS: ARTIFICIAL TEARS OINT (LACRI-LUBE) 3.5 GM TUBE OU SCH ×4 (01:17→19:35)
[2019-04-06 02:45] LABS: ABG BASE EXCESS -5.4 MMOL/L (-2.5-2.5); ABG OXYGEN SATURATION 89 % (94-100); ABG PCO2 42 MMHG (35-45); ABG PO2 46 MMHG (79-93); ABG TCO2 22.5 MMOL/L (21.0-31.0)
[2019-04-06 02:46] LABS: BASOPHILS % (AUTO) 0 % (0-10); EOSINOPHILS % (AUTO) 0 % (0-10); HEMATOCRIT 42 % (40-54); HEMOGLOBIN 13.9 G/DL (13.3-17.7); LYMPHOCYTES # (AUTO) 0.9 X 10^3 (1.0-4.0); LYMPHOCYTES % (AUTO) 4 % (12-44); MEAN CORPUSCULAR HEMOGLOBIN 28 PG (25-34); MEAN CORPUSCULAR HGB CONC 33 G/DL (32-36); MEAN CORPUSCULAR VOLUME 84 FL (80-99); MEAN PLATELET VOLUME 9.3 FL (7.4-10.4); MONOCYTES # (AUTO) 2.7 X 10^3 (0.0-1.0); MONOCYTES % (AUTO) 11 % (0-12); NEUTROPHILS # (AUTO) 21.2 X 10^3 (1.8-7.8); NEUTROPHILS % (AUTO) 85 % (42-75); PLATELET COUNT 290 10^3/uL (130-400); RED CELL DISTRIBUTION WIDTH 14.8 % (10.0-14.5); WHITE BLOOD COUNT 24.9 10^3/uL (4.3-11.0)
[2019-04-06 02:48] LABS: ABG PH 7.29 (7.37-7.43); ALLENS TEST POSITIVE; INSPIRED O2 50% VENT; PATIENT TEMP 91.3; VENTILATOR YES
--- NOTE | 2019-04-06 02:49 | NUR ---
Rewarming began 144, see interventions, E-ICU contacted at this time, updated on pt condition, care and management of pt discussed at this time, no new orders received, will continue to monitor closely
[2019-04-06 02:56] LABS: PROTHROMBIN TIME PATIENT 13.9 SEC (12.2-14.7)
[2019-04-06 03:06] LABS: ALANINE AMINOTRANSFERASE 176 U/L (0-55); ALBUMIN 2.8 GM/DL (3.2-4.5); ALKALINE PHOSPHATASE 69 U/L (40-136); BILIRUBIN,TOTAL 0.5 MG/DL (0.1-1.0); BUN/CREATININE RATIO 18; CALCIUM 7.7 MG/DL (8.5-10.1); CARBON DIOXIDE 19 MMOL/L (21-32); CHLORIDE 111 MMOL/L (98-107); CREATININE SERUM 0.85 MG/DL (0.60-1.30); GFR ESTIMATED > 60; GLUCOSE 141 MG/DL (70-105); MAGNESIUM 3.9 MG/DL (1.8-2.4); PHOSPHORUS 3.9 MG/DL (2.3-4.7); POTASSIUM 3.6 MMOL/L (3.6-5.0); SODIUM 141 MMOL/L (135-145); TOTAL PROTEIN 5.6 GM/DL (6.4-8.2)
[2019-04-06] MEDS: LORazepam INJECTION FOR DRIP 20 MG in D5W 100 ML IVPB 90 ML IV SCH (03:22)
[2019-04-06] MEDS: KCL 20 MEQ TAB (K-DUR) PO SCH (05:00)
[2019-04-06] MEDS: inSUlin ASPART (NovoLOG) 1 UNIT/0.01 ML (CHARGE PER UNIT) SC SCH ×3 (05:13→18:35)
[2019-04-06] MEDS ORDERED: LACTATED RINGERS 1,000 ML IV SCH (05:45)
[2019-04-06] MEDS ORDERED: LACTATED RINGERS 1,000 ML IV ONE (05:46)
--- NOTE | 2019-04-06 05:46 | Pulmonary Progress Note ---
Subjective Time Seen by a Provider: 05:54 Subjective/Events-last exam Pt is sedated on vent Sepsis Event Evaluation Height, Weight, BMI Height: 5'11.00" Weight: 293lbs. 9.0oz. 133.238208uk; BMI Method:Stated Focused Exam Lactate Level 04/05/19 22:00: Lactic Acid Level 2.44*H 04/06/19 00:16: Lactic Acid Level 2.27*H 04/06/19 02:35: Lactic Acid Level 2.13*H Lactic Acid Level Laboratory Tests Test 04/06/19 02:35 Lactic Acid Level 2.13 MMOL/L (0.50-2.00) *H Exam Exam Vital Signs Date Time Temp Pulse Resp B/P (MAP) Pulse Ox O2 Delivery O2 Flow Rate FiO2 04/06/19 05:15 93.0 04/06/19 05:01 92.5 04/06/19 05:00 93.2 89 17 95/41 (59) 95 Mechanical Ventilator 50.00 04/06/19 04:50 92.7 04/06/19 04:35 92.5 04/06/19 04:23 92.3 04/06/19 04:09 92.2 04/06/19 04:00 92.3 87 19 105/43 (63) 95 Mechanical Ventilator 50.00 04/06/19 04:00 Mechanical Ventilator 50.00 04/06/19 03:53 92.0 04/06/19 03:48 Mechanical Ventilator 04/06/19 03:39 91.8 04/06/19 03:25 91.7 04/06/19 03:22 Mechanical Ventilator 04/06/19 03:08 91.5 04/06/19 03:07 85 26 96 50 04/06/19 03:00 91.7 84 25 101/42 (61) 96 Mechanical Ventilator 50.00 04/06/19 02:44 91.4 04/06/19 02:27 91.3 04/06/19 02:12 91.2 04/06/19 02:00 91.1 82 25 98/41 (60) 96 Mechanical Ventilator 50.00 04/06/19 01:59 91.2 04/06/19 01:42 82 26 95 50 04/06/19 01:35 91.1 04/06/19 01:16 Mechanical Ventilator 04/06/19 01:10 75 04/06/19 01:00 90.7 75 20 102/44 (63) 93 Mechanical Ventilator 50.00 04/06/19 00:00 Mechanical Ventilator 50.00 04/06/19 00:00 90.5 68 25 125/47 (73) 96 Mechanical Ventilator 50.00 04/05/19 23:29 67 26 96 50 04/05/19 23:00 90.9 64 25 110/43 (65) 95 Mechanical Ventilator 50.00 04/05/19 22:51 Mechanical Ventilator 04/05/19 22:00 91.3 67 25 121/45 (70) 96 Mechanical Ventilator 50.00 04/05/19 21:05 66 26 95 50 04/05/19 21:00 91.4 66 25 114/44 (67) 95 Mechanical Ventilator 50.00 04/05/19 20:30 Mechanical Ventilator 04/05/19 20:00 Mechanical Ventilator 50.00 04/05/19 20:00 91.4 63 25 100/43 (62) 96 Mechanical Ventilator 50.00 04/05/19 19:01 66 26 98 60 04/05/19 19:00 66 04/05/19 19:00 66 25 116/48 (70) 97 Mechanical Ventilator 50.00 04/05/19 19:00 91.0 04/05/19 18:00 91.0 04/05/19 18:00 66 25 119/49 (72) 98 Mechanical Ventilator 40.00 04/05/19 17:47 65 04/05/19 17:00 91.0 04/05/19 17:00 65 26 115/48 (70) 97 Mechanical Ventilator 40.00 04/05/19 16:46 65 26 97 60 04/05/19 16:00 64 25 109/39 (62) 94 Mechanical Ventilator 40.00 04/05/19 16:00 Mechanical Ventilator 04/05/19 16:00 91.0 04/05/19 15:36 64 04/05/19 15:00 62 26 107/39 (61) 92 Mechanical Ventilator 40.00 04/05/19 15:00 91.0 04/05/19 14:18 63 26 92 45 04/05/19 14:00 64 25 116/41 (66) 92 Mechanical Ventilator 40.00 04/05/19 14:00 91.0 04/05/19 13:15 65 04/05/19 13:00 66 04/05/19 13:00 65 25 121/44 (69) 91 Mechanical Ventilator 40.00 04/05/19 13:00 91.0 04/05/19 12:00 90.1 04/05/19 12:00 Mechanical Ventilator 04/05/19 12:00 59 26 116/43 (67) 93 Mechanical Ventilator 40.00 04/05/19 11:25 63 04/05/19 11:00 90.4 04/05/19 11:00 61 25 126/39 (68) 92 Mechanical Ventilator 40.00 04/05/19 10:53 59 26 92 45 04/05/19 10:00 90.7 04/05/19 10:00 68 25 166/56 (92) 92 Mechanical Ventilator 40.00 04/05/19 09:00 64 25 153/53 (86) 92 Mechanical Ventilator 40.00 04/05/19 09:00 91.3 04/05/19 08:32 65 04/05/19 08:00 Mechanical Ventilator 04/05/19 08:00 91.1 04/05/19 08:00 66 26 150/54 (86) 93 Mechanical Ventilator 50.00 04/05/19 07:47 64 26 91 40 04/05/19 07:29 93.1 04/05/19 07:00 62 25 119/46 (70) 91 Mechanical Ventilator 50.00 04/05/19 07:00 61 04/05/19 06:20 62 26 95 50 04/05/19 06:00 93.0 04/05/19 06:00 65 20 125/48 (73) 95 Mechanical Ventilator 90.00 04/05/19 05:45 92.8 I & O 04/06/19 07:00 Intake Total 5302 ml Output Total 3450 ml Balance 1852 ml Height & Weight Height: 5'11.00" Weight: 293lbs. 9.0oz. 133.800389hf; BMI Method:Stated General Appearance: Obese, Other (intubated and sedated) HEENT: Other (ETT in place) Neck: Other (central line in place) Respiratory: Respiratory Distress, Rhonci, Other (intubated) Cardiovascular: Regular Rate, Rhythm, No Murmur Capillary Refill: Less Than 3 Seconds Extremity: No Pedal Edema Neurologic/Psychiatric: Other (sedated) Skin: Normal Color, Warm/Dry Results Lab Laboratory Tests 04/04/19 16:45 04/04/19 20:05 04/04/19 22:45 04/05/19 02:40 04/05/19 08:15 04/05/19 14:15 04/05/19 14:30 04/05/19 20:09 04/06/19 02:35 Assessment/Plan Assessment/Plan Acute respiratory failure with ARDS -Pa02/Fi02 = 53 -Continue vent -decrease Vt to 470 Increase RR to 24 -Keep PEEP14 -repeat ABG in 1hr Acute NSTEMI s/p code blue -S/p Cath with stenting to LAD -Artic sun was initiated - Pt is in warming phase now -Cardiology following Hyperglycemia Start Levemir -SSI Leukocytosis -[place] culture -Add zosyn Hypotension -Levophed -Liter bolus of LR -increase IVF to 150 Hemoptysis -Started prior to admission -Pt will need bronchoscopy once stable -CTA is negative for PE Metabolic lactic acidosis -give 2 amps Bicarb -will probably need bicarb gtt. Hyponatremia CAD NANCY FUENTES DO Apr 06, 2019 05:46
[2019-04-06] MEDS: POTASSIUM CL 10MEQ/50ML IVPB 50 ML IV SCH ×4 (05:53→09:15)
[2019-04-06] MEDS: HYDROCORTISONE 100 MG/2 ML (Solu-CORTEF) VIAL IV SCH ×3 (06:01→23:05)
[2019-04-06] MEDS: PIPERACILLIN/TAZO 4.5 GM/NS 100 ML IV SCH ×6 (06:01→23:05)
--- NOTE | 2019-04-06 08:02 | Diagnostic Imaging Report ---
Indication: Shortness of breath. Comparison made with prior examination of 04/05/2019. Findings: There is diffuse bilateral airspace disease. There is cardiomegaly. Some underlying central pulmonary venous congestion cannot be excluded. No pleural effusion or pneumothorax. Lines and tubes are in satisfactory position. Impression: Cardiomegaly. Diffuse bowel or airspace disease. Some underlying superimposed central pulmonary venous congestion cannot be excluded. Recommend clinical correlation. Dictated by: Dictated on workstation # [id number]
--- NOTE | 2019-04-06 08:11 | Physical Therapy Progress Note ---
Therapy Progress Note Patient is currently sedated and on mechanical ventilator. PT to assess patient when medically stable and able to actively participate with therapy. KEEGAN CISNEROS PT Apr 06, 2019 08:11
[2019-04-06 08:16] LABS: INR 1.3 (0.8-1.4); PROTHROMBIN TIME PATIENT 16.9 SEC (12.2-14.7)
[2019-04-06 08:17] LABS: BASOPHILS % (AUTO) 0 % (0-10); EOSINOPHILS % (AUTO) 0 % (0-10); HEMATOCRIT 36 % (40-54); HEMOGLOBIN 11.6 G/DL (13.3-17.7); LYMPHOCYTES # (AUTO) 0.8 X 10^3 (1.0-4.0); LYMPHOCYTES % (AUTO) 4 % (12-44); MEAN CORPUSCULAR HEMOGLOBIN 28 PG (25-34); MEAN CORPUSCULAR HGB CONC 32 G/DL (32-36); MEAN CORPUSCULAR VOLUME 86 FL (80-99); MEAN PLATELET VOLUME 9.2 FL (7.4-10.4); MONOCYTES % (AUTO) 9 % (0-12); NEUTROPHILS # (AUTO) 18.2 X 10^3 (1.8-7.8); NEUTROPHILS % (AUTO) 87 % (42-75); PLATELET COUNT 214 10^3/uL (130-400); RED CELL DISTRIBUTION WIDTH 14.8 % (10.0-14.5)
[2019-04-06 08:29] LABS: BUN/CREATININE RATIO 18; CARBON DIOXIDE 15 MMOL/L (21-32); CHLORIDE 121 MMOL/L (98-107); CREATININE SERUM 0.61 MG/DL (0.60-1.30); GFR ESTIMATED > 60; GLUCOSE 118 MG/DL (70-105); MAGNESIUM 2.1 MG/DL (1.8-2.4); PHOSPHORUS 2.8 MG/DL (2.3-4.7); POTASSIUM 3.1 MMOL/L (3.6-5.0); SODIUM 144 MMOL/L (135-145)
--- NOTE | 2019-04-06 08:33 | Occ Therapy Progress Note ---
Therapy Progress Note Pt remains intubated and sedated. Will continue to monitor and initiate evaluation when pt able to participate. KRIS LEONG OT Apr 06, 2019 08:33
[2019-04-06 08:42] LABS: CALCIUM 5.1 MG/DL (8.5-10.1)
--- NOTE | 2019-04-06 08:51 | Progress Note-Hospitalist ---
Subjective HPI/CC On Admission Date Seen by Provider: Apr 06, 2019 Time Seen by Provider: 08:46 Pt is a 74yoCM who presented to the ER due to chest pain. History is obtained only through the records because he is intubated. Reportedly he had been having chest pain on and off and putting it off because it got better on it's own. He was found to have a mildly elevated troponin and d-dimer so went to CT for CTA to rule out PE or dissection. CTA chest was negative and shortly upon return to the ER he was noticed to be gurgling and in v-fib arrest. ACLS protocol was initiated in the ER and he was shocked x1 with conversion to PEA. He received epi pushes x1 and CPR and ultimately had ROSC. 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 He was intubated in the ER and central line was placed. I was later able to talk to the who states that he has been having chest pain and dyspnea with exertion that resolved with rest. He had been to see his Primary ca re provider a couple of times over the last month for a cough and SOB. He was treated with inhalers, steroids, and antibiotics without improvement. He had worsening pain today and his decided to bring him to the ER. Subjective/Events-last exam Pt is intubated and sedated. ROS unable to be obtained. Daughter at bedside. Updated on progress. Currently in rewarming phase. Focused Exam Lactate Level 04/06/19 00:16: Lactic Acid Level 2.27*H 04/06/19 02:35: Lactic Acid Level 2.13*H 04/06/19 08:20: Lactic Acid Level 1.92 Lactic Acid Level Laboratory Tests Test 04/06/19 08:20 Lactic Acid Level 1.92 MMOL/L (0.50-2.00) Objective Exam Vital Signs Vital Signs Date Time Temp Pulse Resp B/P (MAP) Pulse Ox O2 Delivery O2 Flow Rate FiO2 04/06/19 11:45 95.9 04/06/19 11:00 98 25 99/46 (63) 94 Mechanical Ventilator 50.00 04/06/19 10:29 50 Capillary Refill : Less Than 3 Seconds General Appearance: Obese, Other (intubated and sedated) HEENT: Other (ETT in place- scant blood in tube) Neck: Other (central line in place) Respiratory: Respiratory Distress, Rhonci, Other (intubated) Cardiovascular: Regular Rate, Rhythm, No Murmur Gastrointestinal: Normal Bowel Sounds, Non Tender, Soft Genital/Rectal: Other (gaming in place with clear yellow urine) Extremity: No Pedal Edema Neurologic/Psychiatric: Other (sedated) Skin: Normal Color, Warm/Dry Results/Procedures Lab Laboratory Tests 04/05/19 14:15 04/05/19 14:30 04/05/19 20:09 04/06/19 02:35 04/06/19 07:52 Patient resulted labs reviewed. Imaging: Reviewed Imaging Report Assessment/Plan Assessment and Plan Assess & Plan/Chief Complaint Cardiac Arrest Critical Care Critically Ill Patient Diagnosis/Problems Diagnosis/Problems (1) Cardiac arrest with ventricular fibrillation Assessment & Plan: v-fib arrest on 04/04 in ER shock x1 ROSC obtained and arctic sun started at 2000 04/04 and goal temperature reached at 0145 04/05 arctic sun protocol- currently in rewarm status Pulm consulted, appreciate recs (2) Myocardial infarction Assessment & Plan: Underwent emergent high risk cath y04/04 stents deployed cardiology consulted appreciate recs echo reveals preserved EF and mild/mod aortic stenosis Qualifiers: Myocardial infarction type: non-ST elevation myocardial infarction Qual ified Codes: I21.4 - Non-ST elevation (NSTEMI) myocardial infarction (3) CAD (coronary artery disease) Assessment & Plan: s/p emergent cath and stents x2 in LAD Cardiology consulted, appreciate recs Aspirin and Plavix started Qualifiers: Coronary Disease-Associated Artery/Lesion type: [place] artery [place] vs. transplanted heart: [place] heart Associated angina: with stable angina Qualified Codes: I25.118 - Atherosclerotic heart disease of [place] coronary art sarthak with other forms of angina pectoris (4) Shock Assessment & Plan: Remains on levophed- wean as able Cardiogenic shock Cardiology consulted Continue IVF Monitor I/Os closely given cold diuresis (5) Acute respiratory failure Assessment & Plan: intubated post code Pulm consulted, appreciate recs Discussed with Dr Penny Concern for developing ARDS given Pa02/FiO2 gradient when shock improves will work on keeping net negative I/Os Qualifiers: Respiratory failure complication: hypercapnia Qualified Codes: J96.02 - Acute respiratory failure with hypercapnia (6) Metabolic acidosis Assessment & Plan: metabolic acidosis 2 amps of bicarb given this AM Consider bicarb gtt pending next lab draw (7) Shock liver Assessment & Plan: trend, stable (8) Nonsustained ventricular tachycardia Assessment & Plan: On amio gtt per Cardiology (9) Hyperglycemia Assessment & Plan: No known diagnosis of diabetes Levemir started this AM by Dr Penny trend blood sugars Check a1c (10) Leukocytosis Assessment & Plan: new and likely reactive Cont on Zosyn Await cultures Qualifiers: Leukocytosis type: unspecified Qualified Codes: D72.829 - Elevated white blood cell count, unspecified MARY AGUILAR MD Apr 06, 2019 8:51 am
[2019-04-06] MEDS ORDERED: CALCIUM GLUC. 10% 4.65 MEQ/10 ML VIAL IV NR ×2 (08:55→14:45)
[2019-04-06] MEDS: ASPIRIN 81 MG CHEW (CHILDREN'S ASA) PO SCH (09:29)
[2019-04-06] MEDS: CLOPIDOGREL 75 MG (PLAVIX) TABLET PO SCH (09:29)
[2019-04-06] MEDS: POTASSIUM CHLORIDE 20 MEQ IV SCH ×8 (09:56→21:13)
[2019-04-06] MEDS: 1/4 SODIUM CHLORIDE IV SCH ×8 (09:56→21:13)
[2019-04-06 14:17] LABS: BASOPHILS % (AUTO) 0 % (0-10); EOSINOPHILS % (AUTO) 0 % (0-10); HEMATOCRIT 33 % (40-54); HEMOGLOBIN 10.4 G/DL (13.3-17.7); LYMPHOCYTES # (AUTO) 0.8 X 10^3 (1.0-4.0); LYMPHOCYTES % (AUTO) 5 % (12-44); MEAN CORPUSCULAR HEMOGLOBIN 27 PG (25-34); MEAN CORPUSCULAR HGB CONC 32 G/DL (32-36); MEAN CORPUSCULAR VOLUME 87 FL (80-99); MONOCYTES # (AUTO) 1.7 X 10^3 (0.0-1.0); MONOCYTES % (AUTO) 10 % (0-12); NEUTROPHILS # (AUTO) 15.3 X 10^3 (1.8-7.8); NEUTROPHILS % (AUTO) 86 % (42-75); PLATELET COUNT 191 10^3/uL (130-400); RED CELL DISTRIBUTION WIDTH 14.8 % (10.0-14.5); WHITE BLOOD COUNT 17.8 10^3/uL (4.3-11.0)
--- NOTE | 2019-04-06 14:25 | NUR ---
Pastoral care visit, with pts family.
[2019-04-06 14:28] LABS: INR 1.2 (0.8-1.4)
[2019-04-06 14:35] LABS: BUN/CREATININE RATIO 17; CARBON DIOXIDE 16 MMOL/L (21-32); CHLORIDE 120 MMOL/L (98-107); CREATININE SERUM 0.64 MG/DL (0.60-1.30); GFR ESTIMATED > 60; GLUCOSE 125 MG/DL (70-105); PHOSPHORUS 2.8 MG/DL (2.3-4.7); POTASSIUM 3.4 MMOL/L (3.6-5.0); SODIUM 143 MMOL/L (135-145)
[2019-04-06 14:39] LABS: CALCIUM 5.4 MG/DL (8.5-10.1)
--- NOTE | 2019-04-06 16:56 | Progress Note-Cardiology ---
Cardiology SOAP Progress Note Subjective: Still intubated and on mech and being rewarmed at time of my exam of 9am today Objective: I&O/Vital Signs 04/06/19 04/06/19 04/06/19 04/06/19 05:00 05:01 05:15 05:48 Temp 93.2 92.5 93.0 93.4 Pulse 89 Resp 17 B/P (MAP) 95/41 (59) Pulse Ox 95 O2 Delivery Mechanical Ventilator O2 Flow Rate 50.00 04/06/19 04/06/19 04/06/19 04/06/19 06:00 06:02 06:13 06:25 Temp 93.6 93.5 93.6 Pulse 90 Resp 26 B/P (MAP) 111/45 (67) Pulse Ox 94 O2 Delivery Mechanical Ventilator Mechanical Ventilator O2 Flow Rate 50.00 04/06/19 04/06/19 04/06/19 04/06/19 06:30 06:42 06:59 07:00 Temp 93.6 93.6 93.4 Pulse 77 78 Resp 26 25 B/P (MAP) 106/43 (64) Pulse Ox 95 95 O2 Delivery Mechanical Ventilator O2 Flow Rate 50.00 FiO2 50 04/06/19 04/06/19 04/06/19 04/06/19 07:00 07:00 07:19 07:25 Temp 93.6 93.7 Pulse 73 O2 Delivery Mechanical Ventilator O2 Flow Rate 50.00 04/06/19 04/06/19 04/06/19 04/06/19 07:29 07:44 07:59 08:00 Temp 93.7 93.8 93.9 93.7 Pulse 80 Resp 26 B/P (MAP) 113/46 (68) Pulse Ox 96 O2 Delivery Mechanical Ventilator O2 Flow Rate 50.00 04/06/19 04/06/19 04/06/19 04/06/19 08:17 08:46 09:00 09:00 Temp 94.0 94.4 94.6 Pulse 75 75 Resp 26 B/P (MAP) 91/42 (58) Pulse Ox 93 O2 Delivery Mechanical Ventilator O2 Flow Rate 50.00 04/06/19 04/06/19 04/06/19 04/06/19 09:09 09:19 09:23 09:43 Temp 94.7 94.6 95.1 Pulse 89 7/5/19 7/5/19 7/5/19 7/5/19 10:00 10:00 10:17 10:29 Temp 95.2 95.3 95.4 Pulse 94 100 Resp 25 26 B/P (MAP) 94/45 (61) Pulse Ox 92 94 O2 Delivery Mechanical Ventilator O2 Flow Rate 50.00 FiO2 50 04/06/19 04/06/19 04/06/19 04/06/19 10:38 11:00 11:01 11:18 Temp 95.6 95.6 95.8 95.8 Pulse 98 Resp 25 B/P (MAP) 99/46 (63) Pulse Ox 94 O2 Delivery Mechanical Ventilator O2 Flow Rate 50.00 04/06/19 04/06/19 04/06/19 04/06/19 11:45 12:00 12:01 12:05 Temp 95.9 95.6 96.0 Pulse 99 Resp 21 B/P (MAP) 104/47 (66) Pulse Ox 95 O2 Delivery Mechanical Ventilator Mechanical Ventilator O2 Flow Rate 50.00 50.00 04/06/19 04/06/19 04/06/19 04/06/19 12:09 12:22 12:40 12:50 Temp 96.0 96.1 Pulse 99 B/P (MAP) 107/47 04/06/19 04/06/19 04/06/19 04/06/19 13:00 13:03 13:08 13:28 Temp 95.9 96.2 96.3 Pulse 91 99 Resp 25 B/P (MAP) 126/46 (72) Pulse Ox 95 O2 Delivery Mechanical Ventilator O2 Flow Rate 50.00 04/06/19 04/06/19 04/06/19 04/06/19 13:48 14:00 14:02 14:17 Temp 96.5 96.6 96.7 96.9 Pulse 87 Resp 17 B/P (MAP) 115/43 (67) Pulse Ox 95 O2 Delivery Mechanical Ventilator O2 Flow Rate 50.00 04/06/19 04/06/19 04/06/19 04/06/19 14:54 15:00 15:00 15:07 Temp 97.0 97.3 Pulse 90 89 87 Resp 27 25 B/P (MAP) 123/45 (71) 127/45 Pulse Ox 96 96 O2 Delivery Mechanical Ventilator O2 Flow Rate 50.00 FiO2 50 04/06/19 04/06/19 04/06/19 04/06/19 15:17 15:30 15:43 16:00 Temp 97.4 97.7 97.6 O2 Delivery Mechanical Ventilator O2 Flow Rate 50.00 04/06/19 04/06/19 04/06/19 04/06/19 16:00 16:02 16:17 16:35 Temp 97.4 97.7 97.8 98.0 Pulse 89 Resp 25 B/P (MAP) 113/44 (67) Pulse Ox 95 O2 Delivery Mechanical Ventilator O2 Flow Rate 50.00 04/06/19 00:00 Intake Total 2062 ml Output Total 1950 ml Balance 112 ml Weight (Pounds): 293 Weight (Ounces): 9.0 Weight (Calculated Kilograms): 133.966020 Constitutional: other (intubated and being ventilated, unresponsive) Respiratory: other Cardiovascular: regular rate-rhythm, S1 and S2, systolic murmur (soft SERAFIN at card base) Gastrointestional: distended; No audible bowel sounds Extremities: swelling (mild edema); No clubbing, No cyanosis Neurologic/Psychiatric: other (unresponsive) Skin: No rash on exposed areas, No ulcerations on exposed areas Results/Procedures: Labs Laboratory Tests 04/05/19 17:30: Glucometer 177H 04/05/19 18:35: Glucometer 159H 04/05/19 20:09: Glucometer 129H, White Blood Count 24.2H, Red Blood Count 4.92, Hemoglobin 13.7, Hematocrit 42, Mean Corpuscular Volume 85, Mean Corpuscular Hemoglobin 28, Mean Corpuscular Hemoglobin Concent 33, Red Cell Distribution Width 14.7H, Platelet Count 282, Mean Platelet Volume 8.9, Neutrophils (%) (Auto) 87H, Lymphocytes (%) (Auto) 4L, Monocytes (%) (Auto) 9, Eosinophils (%) (Auto) 0, Basophils (%) (Auto) 0, Neutrophils # (Auto) 21.0H, Lymphocytes # (Auto) 1.0, Monocytes # (Auto) 2.2H, Eosinophils # (Auto) 0.0, Basophils # (Auto) 0.0, Prothrombin Time 14.0, INR Comment 1.0, Activated Partial Thromboplast Time 31, Sodium Level 138, Potassium Level 3.5L, Chloride Level 109H, Carbon Dioxide Level 18L, Anion Gap 11, Blood Urea Nitrogen 15, Creatinine 0.86, Estimat Glomerular Filtration Rate > 60, BUN/Creatinine Ratio 17, Glucose Level 129H, Lactic Acid Level 2.56*H, Calcium Level 7.7L, Corrected Calcium 8.6, Phosphorus Level 3.9, Magnesium Level 4.1H, Total Bilirubin 0.4, Aspartate Amino Transf (AST/SGOT) 462H, Alanine Aminotransferase (ALT/SGPT) 185H, Alkaline Phosphatase 73, Total Protein 5.6L, Albumin 2.9L 04/05/19 21:23: Glucometer 115H 04/05/19 22:00: Lactic Acid Level 2.44*H 04/05/19 22:22: Glucometer 116H 04/05/19 23:27: Glucometer 111H 04/06/19 00:16: Lactic Acid Level 2.27*H 04/06/19 00:18: Glucometer 113H 04/06/19 01:19: Glucometer 123H 04/06/19 02:34: Glucometer 135H 04/06/19 02:35: White Blood Count 24.9H, Red Blood Count 5.02, Hemoglobin 13.9, Hematocrit 42, Mean Corpuscular Volume 84, Mean Corpuscular Hemoglobin 28, Mean Corpuscular Hemoglobin Concent 33, Red Cell Distribution Width 14.8H, Platelet Count 290, Mean Platelet Volume 9.3, Neutrophils (%) (Auto) 85H, Lymphocytes (%) (Auto) 4L, Monocytes (%) (Auto) 11, Eosinophils (%) (Auto) 0, Basophils (%) (Auto) 0, Neutrophils # (Auto) 21.2H, Lymphocytes # (Auto) 0.9L, Monocytes # (Auto) 2.7H, Eosinophils # (Auto) 0.0, Basophils # (Auto) 0.0, Prothrombin Time 13.9, INR Comment 1.0, Activated Partial Thromboplast Time 32, Blood Gas Puncture Site LEFT ARTLINE, Blood Gas Patient Temperature 91.3, Arterial Blood pH 7.29*L, Arterial Blood Partial Pressure CO2 42, Arterial Blood Partial Pressure O2 46L, Arterial Blood HCO3 21L, Arterial Blood Total CO2 22.5, Arterial Blood Oxygen Saturation 89L, Arterial Blood Base Excess -5.4L, Omid Test POSITIVE, Blood Gas Ventilator Setting YES, Blood Gas Inspired Oxygen 50% VENT, Sodium Level 141, Potassium Level 3.6, Chloride Level 111H, Carbon Dioxide Level 19L, Anion Gap 11, Blood Urea Nitrogen 15, Creatinine 0.85, Estimat Glomerular Filtration Rate > 60, BUN/Creatinine Ratio 18, Glucose Level 141H, Lactic Acid Level 2.13*H, Calcium Level 7.7L, Corrected Calcium 8.7, Phosphorus Level 3.9, Magnesium Level 3.9H, Total Bilirubin 0.5, Aspartate Amino Transf (AST/SGOT) 414H, Alanine Aminotransferase (ALT/SGPT) 176H, Alkaline Phosphatase 69, Total Protein 5.6L, Albumin 2.8L 04/06/19 03:43: Glucometer 160H 04/06/19 05:13: Glucometer 149H 04/06/19 06:30: Glucometer 156H 04/06/19 07:24: Glucometer 151H 04/06/19 07:52: White Blood Count 21.0H, Red Blood Count 4.20L, Hemoglobin 11.6L, Hematocrit 36L , Mean Corpuscular Volume 86, Mean Corpuscular Hemoglobin 28, Mean Corpuscular Hemoglobin Concent 32, Red Cell Distribution Width 14.8H, Platelet Count 214, Mean Platelet Volume 9.2, Neutrophils (%) (Auto) 87H, Lymphocytes (%) (Auto) 4L, Monocytes (%) (Auto) 9, Eosinophils (%) (Auto) 0, Basophils (%) (Auto) 0, Neutr ophils # (Auto) 18.2H, Lymphocytes # (Auto) 0.8L, Monocytes # (Auto) 2.0H, Eosinophils # (Auto) 0.0, Basophils # (Auto) 0.0, Prothrombin Time 16.9H, INR Comment 1.3, Activated Partial Thromboplast Time 33, Sodium Level 144, Potassium Level 3.1L, Chloride Level 121#H, Carbon Dioxide Level 15L, Anion Gap 8, Blood Urea Nitrogen 11, Creatinine 0.61, Estimat Glomerular Filtration Rate > 60, BUN/Creatinine Ratio 18, Glucose Level 118H, Calcium Level 5.1#*L, Phosphorus Level 2.8, Magnesium Level 2.1 04/06/19 08:20: Lactic Acid Level 1.92 04/06/19 08:22: Glucometer 113H 04/06/19 09:40: Glucometer 147H 04/06/19 10:37: Glucometer 119H 04/06/19 11:59: Glucometer 126H 04/06/19 12:00: Lactic Acid Level 1.75 04/06/19 13:06: Glucometer 153H 04/06/19 14:00: White Blood Count 17.8H, Red Blood Count 3.79L, Hemoglobin 10.4L, Hematocrit 33L , Mean Corpuscular Volume 87, Mean Corpuscular Hemoglobin 27, Mean Corpuscular Hemoglobin Concent 32, Red Cell Distribution Width 14.8H, Platelet Count 191, M maty Platelet Volume 9.0, Neutrophils (%) (Auto) 86H, Lymphocytes (%) (Auto) 5L, Monocytes (%) (Auto) 10, Eosinophils (%) (Auto) 0, Basophils (%) (Auto) 0, Neutrophils # (Auto) 15.3H, Lymphocytes # (Auto) 0.8L, Monocytes # (Auto) 1.7H, Eosinophils # (Auto) 0.0, Basophils # (Auto) 0.0, Prothrombin Time 16.0H, INR Comment 1.2, Activated Partial Thromboplast Time 33, Sodium Level 143, Potassium Level 3.4L, Chloride Level 120H, Carbon Dioxide Level 16L, Anion Gap 7, Blood Urea Nitrogen 11, Creatinine 0.64, Estimat Glomerular Filtration Rate > 60, BUN/Creatinine Ratio 17, Glucose Level 125H, Calcium Level 5.4*L, Phosphorus Level 2.8, Magnesium Level 2.0 04/06/19 14:09: Glucometer 138H 04/06/19 15:17: Glucometer 160H 04/06/19 16:28: Glucometer 108 Microbiology 04/05/19 Blood Culture - Preliminary, Resulted No growth 04/04/19 Gram Stain - Final, Resulted 04/04/19 Sputum Culture - Preliminary, Resulted No growth 04/05/19 Urine Culture - Final, Complete NO GROWTH Laboratory Tests 04/04/19 20:05 04/04/19 22:45 04/05/19 02:40 04/05/19 08:15 04/05/19 14:15 04/05/19 14:30 04/05/19 20:09 04/06/19 02:35 04/06/19 07:52 04/06/19 14:00 A/P: Assessment: Ac WI on 04/04/19 leading to VF cardiac arrest and cardiogenic shock CAD. Emergency cath of 04/04/29 showed ostial/prox 80-90% and prox/mid 80-90% stenoses of the LAD; each stented with Alpine Xience 3.5 x 12 at 20 shad; other vessels showed diffuse mod disease Echo of : LVEF 50-55%, mild to mod , grade 1 diastolic dysfunction, mild LA enlargement, RVSP 13 mmHg Therapeutic hypothermia post cardiac arrest, managed by Hospitalist and ICU services Brief runs of NSVT Plan: * Try to wean off pressors * iv amiodarone 1 gm being given over 24 hours * Not suitable for beta-blockers because of low bp. LUCIANA-inhib/ARB not mandatory because EF is greater than 50% * Monitor labs VIJAY SOLORZANO MD [facility] Apr 06, 2019 16:56
--- NOTE | 2019-04-06 17:55 | NUR ---
PATIENT HAS REACHED NORMOTHERMIC TEMPERATURE AT THIS TIME 98.6. NOTIFIED DR. AGUILAR AT THIS TIME. PATIENT TO CONTINUE ON ARTIC SUN
[2019-04-06] MEDS: fentaNYL INJECTION 1,250 MCG in NS (IVPB) 225 ML IV SCH (18:25)
[2019-04-06 20:49] LABS: BASOPHILS % (AUTO) 0 % (0-10); EOSINOPHILS % (AUTO) 0 % (0-10); HEMATOCRIT 39 % (40-54); HEMOGLOBIN 12.6 G/DL (13.3-17.7); LYMPHOCYTES % (AUTO) 5 % (12-44); MEAN CORPUSCULAR HEMOGLOBIN 27 PG (25-34); MEAN CORPUSCULAR HGB CONC 32 G/DL (32-36); MEAN CORPUSCULAR VOLUME 86 FL (80-99); MEAN PLATELET VOLUME 9.3 FL (7.4-10.4); MONOCYTES # (AUTO) 2.5 X 10^3 (0.0-1.0); MONOCYTES % (AUTO) 12 % (0-12); NEUTROPHILS # (AUTO) 17.3 X 10^3 (1.8-7.8); NEUTROPHILS % (AUTO) 83 % (42-75); PLATELET COUNT 250 10^3/uL (130-400); RED CELL DISTRIBUTION WIDTH 15.4 % (10.0-14.5); WHITE BLOOD COUNT 20.8 10^3/uL (4.3-11.0)
[2019-04-06 20:59] LABS: INR 1.1 (0.8-1.4); PROTHROMBIN TIME PATIENT 14.4 SEC (12.2-14.7)
[2019-04-06 21:07] LABS: BUN/CREATININE RATIO 14; CALCIUM 7.5 MG/DL (8.5-10.1); CARBON DIOXIDE 20 MMOL/L (21-32); CHLORIDE 109 MMOL/L (98-107); CREATININE SERUM 0.92 MG/DL (0.60-1.30); GFR ESTIMATED > 60; GLUCOSE 132 MG/DL (70-105); PHOSPHORUS 3.4 MG/DL (2.3-4.7); POTASSIUM 4.9 MMOL/L (3.6-5.0); SODIUM 140 MMOL/L (135-145); TRIGLYCERIDES 235 MG/DL (<150)
[2019-04-07] VITALS (34 sets, daily range): BP systolic 98–137; BP diastolic 40–54
[2019-04-07] MEDS: PROPOFOL DRIP (ICU) 100 ML IV SCH ×4 (00:15→20:03)
[2019-04-07] MEDS: NOREPINEPHRINE 4 MG in NS (IVPB) 250 ML IV SCH ×2 (00:17→02:50)
[2019-04-07] MEDS: inSUlin ASPART (NovoLOG) 1 UNIT/0.01 ML (CHARGE PER UNIT) SC SCH ×5 (00:46→23:10)
--- NOTE | 2019-04-07 01:07 | NUR ---
0000-- This RN in to assess Pt and observed audible gurgling and ET tube placement off from previous check. RT notified at 0010. RT to room at this time. Radiology called to obtain morning chest X-ray. E-ICU called and updated on Pt situation, awaiting further orders. 0100-- Pt resting comfortably with eyes closed. No s/s of distress noted, VS stable.
[2019-04-07] MEDS: ARTIFICIAL TEARS OINT (LACRI-LUBE) 3.5 GM TUBE OU SCH ×4 (01:17→20:08)
[2019-04-07 03:25] LABS: BASOPHILS % (AUTO) 0 % (0-10); EOSINOPHILS % (AUTO) 0 % (0-10); HEMATOCRIT 37 % (40-54); HEMOGLOBIN 11.5 G/DL (13.3-17.7); LYMPHOCYTES # (AUTO) 0.8 X 10^3 (1.0-4.0); LYMPHOCYTES % (AUTO) 5 % (12-44); MEAN CORPUSCULAR HEMOGLOBIN 27 PG (25-34); MEAN CORPUSCULAR HGB CONC 31 G/DL (32-36); MEAN CORPUSCULAR VOLUME 86 FL (80-99); MEAN PLATELET VOLUME 9.4 FL (7.4-10.4); MONOCYTES # (AUTO) 1.9 X 10^3 (0.0-1.0); MONOCYTES % (AUTO) 12 % (0-12); NEUTROPHILS # (AUTO) 12.4 X 10^3 (1.8-7.8); NEUTROPHILS % (AUTO) 83 % (42-75); PLATELET COUNT 211 10^3/uL (130-400); RED CELL DISTRIBUTION WIDTH 15.4 % (10.0-14.5)
[2019-04-07 03:26] LABS: ABG BASE EXCESS -0.8 MMOL/L (-2.5-2.5); ABG OXYGEN SATURATION 92 % (94-100); ABG PCO2 45 MMHG (35-45); ABG PH 7.35 (7.37-7.43); ABG PO2 61 MMHG (79-93); ABG TCO2 25.5 MMOL/L (21.0-31.0)
[2019-04-07 03:27] LABS: ALLENS TEST POSITIVE; INSPIRED O2 45% VENT; PATIENT TEMP 98.4; VENTILATOR YES
[2019-04-07 03:38] LABS: INR 1.1 (0.8-1.4); PROTHROMBIN TIME PATIENT 14.9 SEC (12.2-14.7)
[2019-04-07 03:50] LABS: BUN/CREATININE RATIO 15; CALCIUM 7.4 MG/DL (8.5-10.1); CARBON DIOXIDE 21 MMOL/L (21-32); CHLORIDE 110 MMOL/L (98-107); CREATININE SERUM 0.86 MG/DL (0.60-1.30); GFR ESTIMATED > 60; GLUCOSE 132 MG/DL (70-105); MAGNESIUM 2.7 MG/DL (1.8-2.4); PHOSPHORUS 2.8 MG/DL (2.3-4.7); POTASSIUM 4.7 MMOL/L (3.6-5.0); SODIUM 141 MMOL/L (135-145)
[2019-04-07] MEDS ORDERED: [UNRECOGNIZED DRUG - OTHER] IV SCH ×4 (05:24)
[2019-04-07] MEDS ORDERED: SODIUM BICARBONATE IV SCH ×4 (05:24)
[2019-04-07] MEDS ORDERED: SODIUM CHLORIDE IV SCH ×4 (05:24)
--- NOTE | 2019-04-07 05:30 | Pulmonary Progress Note ---
Subjective Time Seen by a Provider: 05:45 Subjective/Events-last exam Pt is now normothermic. Plan is for bronchoscopy on Tuesday. Sepsis Event Evaluation Height, Weight, BMI Height: 5'11.00" Weight: 293lbs. 9.0oz. 133.911734he; BMI Method:Stated Focused Exam Lactate Level 04/06/19 08:20: Lactic Acid Level 1.92 04/06/19 12:00: Lactic Acid Level 1.75 04/07/19 00:05: Lactic Acid Level 2.00 Exam Exam Vital Signs Date Time Temp Pulse Resp B/P (MAP) Pulse Ox O2 Delivery O2 Flow Rate FiO2 04/07/19 05:00 98.8 04/07/19 05:00 98.2 89 16 122/46 (71) 94 Mechanical Ventilator 45.00 04/07/19 04:00 98.2 96 26 128/48 (74) 93 Mechanical Ventilator 45.00 04/07/19 04:00 Mechanical Ventilator 45.00 04/07/19 04:00 98.9 04/07/19 03:00 98.9 04/07/19 03:00 98.4 92 12 133/50 (77) 97 Mechanical Ventilator 45.00 04/07/19 02:00 98.9 04/07/19 02:00 98.4 93 19 130/50 (76) 96 Mechanical Ventilator 45.00 04/07/19 01:00 98.7 04/07/19 01:00 101 04/07/19 01:00 98.4 101 23 137/54 (81) 95 Mechanical Ventilator 45.00 04/07/19 00:40 104 28 96 45 04/07/19 00:15 Mechanical Ventilator 04/07/19 00:00 98.2 92 26 119/46 (70) 94 Mechanical Ventilator 45.00 04/07/19 00:00 Mechanical Ventilator 45.00 04/06/19 23:59 98.7 04/06/19 23:00 98.7 04/06/19 23:00 98.2 93 24 124/47 (72) 95 Mechanical Ventilator 45.00 04/06/19 22:00 98.6 04/06/19 22:00 98.2 89 21 117/45 (69) 97 Mechanical Ventilator 45.00 04/06/19 21:55 90 28 93 45 04/06/19 21:30 98.7 04/06/19 21:00 98.3 92 26 121/47 (71) 92 Mechanical Ventilator 45.00 04/06/19 20:35 98.8 94 21 124/48 92 Mechanical Ventilator 45.00 04/06/19 20:09 98.8 04/06/19 20:00 98.4 94 25 106/45 (65) 93 Mechanical Ventilator 45.00 04/06/19 20:00 Mechanical Ventilator 45.00 04/06/19 19:05 95 26 96 50 04/06/19 19:02 98.9 04/06/19 19:00 98.4 91 25 104/42 (62) 95 Mechanical Ventilator 50.00 04/06/19 19:00 90 04/06/19 18:00 98.6 89 25 104/41 (62) 95 Mechanical Ventilator 50.00 04/06/19 17:54 98.6 04/06/19 17:44 98.5 04/06/19 17:41 89 107/42 04/06/19 17:21 98.3 04/06/19 17:00 97.8 90 25 110/42 (64) 95 Mechanical Ventilator 50.00 04/06/19 16:54 98.1 04/06/19 16:35 98.0 04/06/19 16:17 97.8 04/06/19 16:02 97.7 04/06/19 16:00 97.4 89 25 113/44 (67) 95 Mechanical Ventilator 50.00 04/06/19 16:00 Mechanical Ventilator 50.00 04/06/19 15:43 97.6 04/06/19 15:30 97.7 04/06/19 15:17 97.4 04/06/19 15:07 87 127/45 04/06/19 15:00 97.3 04/06/19 15:00 97.0 89 25 123/45 (71) 96 Mechanical Ventilator 50.00 04/06/19 14:54 90 27 96 50 04/06/19 14:17 96.9 04/06/19 14:02 96.7 04/06/19 14:00 96.6 87 17 115/43 (67) 95 Mechanical Ventilator 50.00 04/06/19 13:48 96.5 04/06/19 13:28 96.3 04/06/19 13:08 96.2 04/06/19 13:03 99 04/06/19 13:00 95.9 91 25 126/46 (72) 95 Mechanical Ventilator 50.00 04/06/19 12:50 96.1 04/06/19 12:40 99 04/06/19 12:22 96.0 04/06/19 12:09 107/47 04/06/19 12:05 96.0 04/06/19 12:01 Mechanical Ventilator 50.00 04/06/19 12:00 95.6 99 21 104/47 (66) 95 Mechanical Ventilator 50.00 04/06/19 11:45 95.9 04/06/19 11:18 95.8 04/06/19 11:01 95.8 04/06/19 11:00 95.6 98 25 99/46 (63) 94 Mechanical Ventilator 50.00 04/06/19 10:38 95.6 04/06/19 10:29 100 26 94 50 04/06/19 10:17 95.4 04/06/19 10:00 95.3 04/06/19 10:00 95.2 94 25 94/45 (61) 92 Mechanical Ventilator 50.00 04/06/19 09:43 95.1 04/06/19 09:23 89 04/06/19 09:19 94.6 04/06/19 09:09 94.7 04/06/19 09:00 94.6 75 26 91/42 (58) 93 Mechanical Ventilator 50.00 04/06/19 09:00 75 04/06/19 08:46 94.4 04/06/19 08:17 94.0 04/06/19 08:00 93.7 80 26 113/46 (68) 96 Mechanical Ventilator 50.00 04/06/19 07:59 93.9 04/06/19 07:44 93.8 04/06/19 07:29 93.7 04/06/19 07:25 Mechanical Ventilator 50.00 04/06/19 07:19 93.7 04/06/19 07:00 93.6 04/06/19 07:00 73 04/06/19 07:00 93.4 78 25 106/43 (64) 95 Mechanical Ventilator 50.00 04/06/19 06:59 77 26 95 50 04/06/19 06:42 93.6 04/06/19 06:30 93.6 04/06/19 06:25 Mechanical Ventilator 04/06/19 06:13 93.6 04/06/19 06:02 93.5 04/06/19 06:00 93.6 90 26 111/45 (67) 94 Mechanical Ventilator 50.00 04/06/19 05:48 93.4 I & O 04/07/19 07:00 Intake Total 5795 ml Output Total 1125 ml Balance 4670 ml Height & Weight Height: 5'11.00" Weight: 293lbs. 9.0oz. 133.219312wq; BMI Method:Stated General Appearance: Obese, Other (intubated and sedated) HEENT: Other (ETT in place- scant blood in tube) Neck: Other (central line in place) Respiratory: Respiratory Distress, Rhonci, Other (intubated) Cardiovascular: Regular Rate, Rhythm, No Murmur Capillary Refill: Greater Than 3 Seconds Extremity: No Pedal Edema Neurologic/Psychiatric: Other (sedated) Skin: Normal Color, Warm/Dry Results Lab Laboratory Tests 04/05/19 08:15 04/05/19 14:15 04/05/19 14:30 04/05/19 20:09 04/06/19 02:35 04/06/19 07:52 04/06/19 14:00 04/06/19 20:41 04/07/19 03:10 Assessment/Plan Assessment/Plan Acute respiratory failure with ARDS -Pa02/Fi02 = 135 -Continue vent -decrease Vt to 470 Increase RR to 24 PEEP14 - decrease to 10 Acute NSTEMI s/p code blue -S/p Cath with stenting to LAD -Artic sun was initiated -Cardiology following Hyperglycemia -Levemir 10 units Leukocytosis -[place] cultures pending -Add zosyn Hypotension -Levophed - titrate to D/C -IVF Hemoptysis - persistent -Started prior to admission -Pt will need bronchoscopy once stable - plan for Tuesday -CTA is negative for PE Metabolic lactic acidosis -Bicarb gtt currently CAD NANCY FUENTES DO Apr 07, 2019 05:30
[2019-04-07] MEDS: POTASSIUM CL 10MEQ/50ML IVPB 50 ML IV SCH (05:45)
[2019-04-07] MEDS: KCL 20 MEQ TAB (K-DUR) PO SCH (05:45)
[2019-04-07] MEDS: MAGNESIUM 1 GM/100 ML IVPB 100 ML IV SCH (05:45)
[2019-04-07] MEDS: PIPERACILLIN/TAZO 4.5 GM/NS 100 ML IV SCH ×6 (06:00→23:10)
[2019-04-07] MEDS: HYDROCORTISONE 100 MG/2 ML (Solu-CORTEF) VIAL IV SCH ×3 (06:00→23:10)
[2019-04-07 06:35] LABS: ALANINE AMINOTRANSFERASE 95 U/L (0-55); ALBUMIN 2.3 GM/DL (3.2-4.5); ALKALINE PHOSPHATASE 57 U/L (40-136); BILIRUBIN,TOTAL 0.4 MG/DL (0.1-1.0); BUN/CREATININE RATIO 16; CALCIUM 7.2 MG/DL (8.5-10.1); CARBON DIOXIDE 24 MMOL/L (21-32); CHLORIDE 110 MMOL/L (98-107); GFR ESTIMATED > 60; GLUCOSE 127 MG/DL (70-105); POTASSIUM 4.5 MMOL/L (3.6-5.0); SODIUM 140 MMOL/L (135-145); TOTAL PROTEIN 4.5 GM/DL (6.4-8.2)
--- NOTE | 2019-04-07 07:15 | Diagnostic Imaging Report ---
INDICATION: Respiratory difficulty. Comparison made with prior examination 04/06/2019. FINDINGS: There is cardiomegaly. There is bilateral airspace disease right greater than left. Some underlying central pulmonary venous congestion cannot be excluded. The ET and NG tubes are in satisfactory position. The left internal jugular central venous catheter has its tip in the innominate vein. IMPRESSION: Bilateral airspace disease, right greater than left. Some underlying central pulmonary venous congestion cannot be excluded. Cardiomegaly. Dictated by: Dictated on workstation # [id number]
--- NOTE | 2019-04-07 07:36 | Diagnostic Imaging Report ---
Indication: Dyspnea. Comparison: Earlier the same date. Discussion: Single portable upright view of the chest was obtained. Endotracheal tube is in good position with tip in the midtrachea. Cardiomegaly is present. Extensive pulmonary infiltrates are not significantly changed. No pneumothorax or osseous abnormality. Enteric tube is present though the tip is not visualized due to technique. Impression: 1. Endotracheal tube in good position within the midtrachea. 2. Extensive pulmonary infiltrates, stable. Dictated by: Dictated on workstation # [id number]
[2019-04-07] MEDS: CLOPIDOGREL 75 MG (PLAVIX) TABLET PO SCH (08:34)
[2019-04-07] MEDS: ASPIRIN 81 MG CHEW (CHILDREN'S ASA) PO SCH (08:35)
--- NOTE | 2019-04-07 10:40 | Occ Therapy Progress Note ---
Therapy Progress Note Pt continues on vent. Will follow. AMY PALACIOS OT Apr 07, 2019 10:40
--- NOTE | 2019-04-07 12:40 | Physical Therapy Progress Note ---
Therapy Progress Note Pt remains on a ventilator. Will check patient on Tuesday. SUSANA CHAMPION PT Apr 07, 2019 12:40
--- NOTE | 2019-04-07 12:58 | Progress Note-Cardiology ---
Cardiology SOAP Progress Note Subjective: Intubated, on mech vent, unresponsive Objective: I&O/Vital Signs 04/07/19 04/07/19 04/07/19 04/07/19 01:00 01:00 01:00 02:00 Temp 98.4 98.7 98.4 Pulse 101 101 93 Resp 23 19 B/P (MAP) 137/54 (81) 130/50 (76) Pulse Ox 95 96 O2 Delivery Mechanical Ventilator Mechanical Ventilator O2 Flow Rate 45.00 45.00 04/07/19 04/07/19 04/07/19 04/07/19 02:00 03:00 03:00 04:00 Temp 98.9 98.4 98.9 98.9 Pulse 92 Resp 12 B/P (MAP) 133/50 (77) Pulse Ox 97 O2 Delivery Mechanical Ventilator O2 Flow Rate 45.00 04/07/19 04/07/19 04/07/19 04/07/19 04:00 04:00 05:00 05:00 Temp 98.2 98.2 98.8 Pulse 96 89 Resp 26 16 B/P (MAP) 128/48 (74) 122/46 (71) Pulse Ox 93 94 O2 Delivery Mechanical Ventilator Mechanical Ventilator Mechanical Ventilator O2 Flow Rate 45.00 45.00 45.00 04/07/19 04/07/19 04/07/19 04/07/19 06:00 06:00 06:42 06:50 Temp 98.5 97.8 Pulse 96 99 Resp 22 30 B/P (MAP) 122/47 (72) Pulse Ox 95 97 O2 Delivery Mechanical Ventilator Mechanical Ventilator O2 Flow Rate 45.00 FiO2 45 04/07/19 04/07/19 04/07/19 04/07/19 07:00 07:00 07:13 07:17 Temp 97.8 98.4 Pulse 100 99 Resp 25 B/P (MAP) 124/48 (73) Pulse Ox 96 O2 Delivery Mechanical Ventilator Mechanical Ventilator O2 Flow Rate 45.00 45.00 04/07/19 04/07/19 04/07/19 04/07/19 07:32 08:00 08:10 08:52 Temp 98.1 98.2 98.6 Pulse 100 101 102 Resp 14 28 26 B/P (MAP) 123/49 (73) 118/46 (70) Pulse Ox 98 97 95 O2 Delivery Mechanical Ventilator Mechanical Ventilator O2 Flow Rate 45.00 45.00 FiO2 45 04/07/19 04/07/19 04/07/19 04/07/19 09:00 09:13 10:00 10:06 Temp 98.2 98.7 98.2 98.7 Pulse 102 102 Resp 26 25 B/P (MAP) 120/47 (71) 124/47 (72) Pulse Ox 96 100 O2 Delivery Mechanical Ventilator Mechanical Ventilator O2 Flow Rate 45.00 45.00 04/07/19 04/07/19 04/07/19 04/07/19 10:36 11:01 11:51 11:51 Temp 98.7 98.6 Pulse 102 Resp 28 Pulse Ox 95 O2 Delivery Mechanical Ventilator O2 Flow Rate 45.00 FiO2 45 04/07/19 00:00 Intake Total 3935 ml Output Total 790 ml Balance 3145 ml Weight (Pounds): 308 Weight (Ounces): 5.0 Weight (Calculated Kilograms): 139.567688 Constitutional: other (intubated and being ventilated, unresponsive) Respiratory: other Cardiovascular: regular rate-rhythm, S1 and S2, systolic murmur (soft SERAFIN at card base) Gastrointestional: distended; No audible bowel sounds Extremities: swelling (mild edema); No clubbing, No cyanosis Neurologic/Psychiatric: other (unresponsive) Skin: No rash on exposed areas, No ulcerations on exposed areas Results/Procedures: Labs Laboratory Tests 04/06/19 13:06: Glucometer 153H 04/06/19 14:00: White Blood Count 17.8H, Red Blood Count 3.79L, Hemoglobin 10.4L, Hematocrit 33L , Mean Corpuscular Volume 87, Mean Corpuscular Hemoglobin 27, Mean Corpuscular Hemoglobin Concent 32, Red Cell Distribution Width 14.8H, Platelet Count 191, Mean Platelet Volume 9.0, Neutrophils (%) (Auto) 86H, Lymphocytes (%) (Auto) 5L, Monocytes (%) (Auto) 10, Eosinophils (%) (Auto) 0, Basophils (%) (Auto) 0, Neutrophils # (Auto) 15.3H, Lymphocytes # (Auto) 0.8L, Monocytes # (Auto) 1.7H, Eosinophils # (Auto) 0.0, Basophils # (Auto) 0.0, Prothrombin Time 16.0H, INR Comment 1.2, Activated Partial Thromboplast Time 33, Sodium Level 143, Potassium Level 3.4L, Chloride Level 120H, Carbon Dioxide Level 16L, Anion Gap 7, Blood U jennifer Nitrogen 11, Creatinine 0.64, Estimat Glomerular Filtration Rate > 60, BUN/Creatinine Ratio 17, Glucose Level 125H, Calcium Level 5.4*L, Phosphorus Level 2.8, Magnesium Level 2.0 04/06/19 14:09: Glucometer 138H 04/06/19 15:17: Glucometer 160H 04/06/19 16:28: Glucometer 108 04/06/19 17:26: Glucometer 103 04/06/19 18:33: Glucometer 104 04/06/19 20:40: Glucometer 134H 04/06/19 20:41: White Blood Count 20.8H, Red Blood Count 4.59, Hemoglobin 12.6#L, Hematocrit 39L , Mean Corpuscular Volume 86, Mean Corpuscular Hemoglobin 27, Mean Corpuscular Hemoglobin Concent 32, Red Cell Distribution Width 15.4H, Platelet Count 250, Mean Platelet Volume 9.3, Neutrophils (%) (Auto) 83H, Lymphocytes (%) (Auto) 5L, Monocytes (%) (Auto) 12, Eosinophils (%) (Auto) 0, Basophils (%) (Auto) 0, Neutrophils # (Auto) 17.3H, Lymphocytes # (Auto) 1.0, Monocytes # (Auto) 2.5H, Eosinophils # (Auto) 0.0, Basophils # (Auto) 0.0, Prothrombin Time 14.4, INR Com ment 1.1, Activated Partial Thromboplast Time 29, Sodium Level 140, Potassium Level 4.9, Chloride Level 109H, Carbon Dioxide Level 20L, Anion Gap 11, Blood Ur ea Nitrogen 13, Creatinine 0.92, Estimat Glomerular Filtration Rate > 60, BUN/Creatinine Ratio 14, Glucose Level 132H, Calcium Level 7.5L, Phosphorus Level 3.4, Magnesium Level 3.0H, Triglycerides Level 235H 04/07/19 00:05: Lactic Acid Level 2.00 04/07/19 00:06: Glucometer 124H 04/07/19 03:10: White Blood Count 15.0H, Red Blood Count 4.28L, Hemoglobin 11.5L, Hematocrit 37L , Mean Corpuscular Volume 86, Mean Corpuscular Hemoglobin 27, Mean Corpuscular Hemoglobin Concent 31L, Red Cell Distribution Width 15.4H, Platelet Count 211, Mean Platelet Volume 9.4, Neutrophils (%) (Auto) 83H, Lymphocytes (%) (Auto) 5L, Monocytes (%) (Auto) 12, Eosinophils (%) (Auto) 0, Basophils (%) (Auto) 0, Neutrophils # (Auto) 12.4H, Lymphocytes # (Auto) 0.8L, Monocytes # (Auto) 1.9H, Eosinophils # (Auto) 0.0, Basophils # (Auto) 0.0, Prothrombin Time 14.9H, INR Comment 1.1, Activated Partial Thromboplast Time 33, Sodium Level 141, Potassium Level 4.7, Chloride Level 110H, Carbon Dioxide Level 21, Anion Gap 10, Blood Urea Nitrogen 13, Creatinine 0.86, Estimat Glomerular Filtration Rate > 60, BUN/Creatinine Ratio 15, Glucose Level 132H, Calcium Level 7.4L, Phosphorus Level 2.8, Magnesium Level 2.7H, Blood Gas Puncture Site LEFT RADIAL ARTLINE, Blood Gas Patient Temperature 98.4, Arterial Blood pH 7.35L, Arterial Blood Partial Pressure CO2 45, Arterial Blood Partial Pressure O2 61L, Arterial Blood HCO3 24, Arterial Blood Total CO2 25.5, Arterial Blood Oxygen Saturation 92L, Arterial Blood Base Excess -0.8, Omid Test POSITIVE, Blood Gas Ventilator Setting YES, Blood Gas Inspired Oxygen 45% VENT 04/07/19 06:12: Sodium Level 140, Potassium Level 4.5, Chloride Level 110H, Carbon Dioxide Level 24, Anion Gap 6, Blood Urea Nitrogen 13, Creatinine 0.80, Estimat Glomerular Filtration Rate > 60, BUN/Creatinine Ratio 16, Glucose Level 127H, Calcium Level 7.2L, Corrected Calcium 8.6, Total Bilirubin 0.4, Aspartate Amino Transf (AST/SGOT) 138H, Alanine Aminotransferase (ALT/SGPT) 95H, Alkaline Phosphatase 57, Total Protein 4.5L, Albumin 2.3L 04/07/19 11:55: Glucometer 114H Microbiology 04/05/19 Blood Culture - Preliminary, Resulted No growth 04/04/19 Gram Stain - Final, Resulted 04/04/19 Sputum Culture - Preliminary, Resulted No growth 04/05/19 Urine Culture - Final, Complete NO GROWTH Laboratory Tests 04/05/19 14:15 04/05/19 14:30 04/05/19 20:09 04/06/19 02:35 04/06/19 07:52 04/06/19 14:00 04/06/19 20:41 04/07/19 03:10 04/07/19 06:12 A/P: Assessment: Ac MA on 04/04/19 leading to VF cardiac arrest and cardiogenic shock and ARDS CAD. Emergency cath of 04/04/29 showed ostial/prox 80-90% and prox/mid 80-90% stenoses of the LAD; each stented with Alpine Xience 3.5 x 12 at 20 shad; other vessels showed diffuse mod disease Echo of : LVEF 50-55%, mild to mod , grade 1 diastolic dysfunction, mild LA enlargement, RVSP 13 mmHg Therapeutic hypothermia post cardiac arrest, managed by Hospitalist and ICU services Brief runs of NSVT and AIVR, currently stable Plan: * Try to wean off pressors * Not suitable for beta-blockers because of low bp. LUCIANA-inhib/ARB not mandatory because EF is greater than 50% * Monitor labs * Prognosis guarded VIJAY SOLORZANO MD FACP [facility] Apr 07, 2019 12:58
[2019-04-07] MEDS ORDERED: ENOXAPARIN 40 MG/0.4 ML (LOVENOX) SYR SC SCH (13:00)
[2019-04-07 18:53] LABS: BASOPHILS % (AUTO) 0 % (0-10); EOSINOPHILS % (AUTO) 0 % (0-10); HEMATOCRIT 32 % (40-54); HEMOGLOBIN 10.1 G/DL (13.3-17.7); LYMPHOCYTES % (AUTO) 9 % (12-44); MEAN CORPUSCULAR HEMOGLOBIN 28 PG (25-34); MEAN CORPUSCULAR HGB CONC 32 G/DL (32-36); MEAN CORPUSCULAR VOLUME 87 FL (80-99); MEAN PLATELET VOLUME 9.4 FL (7.4-10.4); MONOCYTES % (AUTO) 9 % (0-12); NEUTROPHILS # (AUTO) 8.9 X 10^3 (1.8-7.8); NEUTROPHILS % (AUTO) 82 % (42-75); PLATELET COUNT 167 10^3/uL (130-400); RED CELL DISTRIBUTION WIDTH 15.1 % (10.0-14.5); WHITE BLOOD COUNT 10.9 10^3/uL (4.3-11.0)
[2019-04-07] MEDS: 1/2 NS W/KCL 20 MEQ/L 1,000 ML IV SCH ×2 (18:59→22:55)
[2019-04-07 19:06] LABS: INR 1.1 (0.8-1.4); PROTHROMBIN TIME PATIENT 14.4 SEC (12.2-14.7)
[2019-04-07 19:08] LABS: CALCIUM 7.3 MG/DL (8.5-10.1); CARBON DIOXIDE 27 MMOL/L (21-32); CHLORIDE 110 MMOL/L (98-107); CREATININE SERUM 0.73 MG/DL (0.60-1.30); GFR ESTIMATED > 60; GLUCOSE 119 MG/DL (70-105); MAGNESIUM 2.6 MG/DL (1.8-2.4); PHOSPHORUS 2.2 MG/DL (2.3-4.7); POTASSIUM 4.4 MMOL/L (3.6-5.0); SODIUM 142 MMOL/L (135-145)
[2019-04-07 19:20] LABS: BUN/CREATININE RATIO 22
[2019-04-07] MEDS: fentaNYL INJECTION 1,250 MCG in NS (IVPB) 225 ML IV SCH (20:59)
[2019-04-08] VITALS (32 sets, daily range): BP systolic 80–168; BP diastolic 41–66
[2019-04-08] MEDS: PROPOFOL DRIP (ICU) 100 ML IV SCH ×3 (00:31→16:49)
[2019-04-08] MEDS: ARTIFICIAL TEARS OINT (LACRI-LUBE) 3.5 GM TUBE OU SCH ×4 (02:10→20:58)
[2019-04-08 03:31] LABS: BASOPHILS % (AUTO) 0 % (0-10); EOSINOPHILS % (AUTO) 0 % (0-10); HEMATOCRIT 32 % (40-54); LYMPHOCYTES # (AUTO) 1.1 X 10^3 (1.0-4.0); LYMPHOCYTES % (AUTO) 10 % (12-44); MEAN CORPUSCULAR HEMOGLOBIN 28 PG (25-34); MEAN CORPUSCULAR HGB CONC 32 G/DL (32-36); MEAN CORPUSCULAR VOLUME 87 FL (80-99); MEAN PLATELET VOLUME 9.4 FL (7.4-10.4); MONOCYTES # (AUTO) 0.9 X 10^3 (0.0-1.0); MONOCYTES % (AUTO) 8 % (0-12); NEUTROPHILS % (AUTO) 82 % (42-75); PLATELET COUNT 157 10^3/uL (130-400); RED CELL DISTRIBUTION WIDTH 15.2 % (10.0-14.5)
[2019-04-08 03:39] LABS: ABG BASE EXCESS 2.6 MMOL/L (-2.5-2.5); ABG OXYGEN SATURATION 97 % (94-100); ABG PCO2 41 MMHG (35-45); ABG PH 7.43 (7.37-7.43); ABG PO2 81 MMHG (79-93); ABG TCO2 27.8 MMOL/L (21.0-31.0)
[2019-04-08 03:42] LABS: INR 1.1 (0.8-1.4); PROTHROMBIN TIME PATIENT 14.2 SEC (12.2-14.7)
[2019-04-08 03:45] LABS: ALLENS TEST POSITIVE; INSPIRED O2 50% VENT; PATIENT TEMP 98.7; VENTILATOR YES
[2019-04-08 03:49] LABS: BUN/CREATININE RATIO 27; CALCIUM 7.3 MG/DL (8.5-10.1); CARBON DIOXIDE 26 MMOL/L (21-32); CHLORIDE 108 MMOL/L (98-107); CREATININE SERUM 0.73 MG/DL (0.60-1.30); GFR ESTIMATED > 60; GLUCOSE 112 MG/DL (70-105); MAGNESIUM 2.5 MG/DL (1.8-2.4); PHOSPHORUS 2.4 MG/DL (2.3-4.7); POTASSIUM 4.5 MMOL/L (3.6-5.0); SODIUM 141 MMOL/L (135-145)
[2019-04-08] MEDS: 1/2 NS W/KCL 20 MEQ/L 1,000 ML IV SCH (04:54)
[2019-04-08] MEDS: POTASSIUM CL 10MEQ/50ML IVPB 50 ML IV SCH (05:57)
[2019-04-08] MEDS: MAGNESIUM 1 GM/100 ML IVPB 100 ML IV SCH (05:58)
[2019-04-08] MEDS: KCL 20 MEQ TAB (K-DUR) PO SCH (05:58)
[2019-04-08] MEDS: inSUlin ASPART (NovoLOG) 1 UNIT/0.01 ML (CHARGE PER UNIT) SC SCH ×3 (05:58→18:00)
[2019-04-08] MEDS ORDERED: DEXMEDETOMIDINE INJECTION 200 MCG in NS (IVPB) 50 ML IV SCH (06:00)
[2019-04-08] MEDS ORDERED: LACTATED RINGERS 1,000 ML IV SCH (06:00)
--- NOTE | 2019-04-08 06:00 | Pulmonary Progress Note ---
Subjective Time Seen by a Provider: 06:06 Subjective/Events-last exam Sedated on vent Sepsis Event Evaluation Height, Weight, BMI Height: 5'11.00" Weight: 312lbs. 5.0oz. 141.866902ng; BMI Method:Stated Focused Exam Lactate Level 04/06/19 08:20: Lactic Acid Level 1.92 04/06/19 12:00: Lactic Acid Level 1.75 04/07/19 00:05: Lactic Acid Level 2.00 Exam Exam Vital Signs Date Time Temp Pulse Resp B/P (MAP) Pulse Ox O2 Delivery O2 Flow Rate FiO2 04/08/19 05:00 98.5 04/08/19 04:54 Mechanical Ventilator 04/08/19 04:25 98.5 04/08/19 04:00 97.8 86 25 98/42 (60) 97 Mechanical Ventilator 45.00 04/08/19 04:00 Mechanical Ventilator 60 04/08/19 03:00 98.3 87 25 100/43 (62) 96 Mechanical Ventilator 45.00 04/08/19 02:30 90 26 94 60 04/08/19 02:00 98.1 89 26 104/42 (62) 94 Mechanical Ventilator 45.00 04/08/19 01:00 98.1 92 25 102/42 (62) 92 Mechanical Ventilator 45.00 04/08/19 01:00 92 04/08/19 00:31 Mechanical Ventilator 04/08/19 00:30 90 26 95 60 04/08/19 00:00 98.0 90 25 100/41 (60) 95 Mechanical Ventilator 45.00 04/08/19 00:00 Mechanical Ventilator 60 04/07/19 23:00 98.5 04/07/19 23:00 98.1 92 26 102/41 (61) 94 Mechanical Ventilator 45.00 04/07/19 22:30 94 26 92 60 04/07/19 22:00 Mechanical Ventilator 60 04/07/19 22:00 98.1 94 25 106/41 (62) 94 Mechanical Ventilator 45.00 04/07/19 22:00 98.8 04/07/19 21:00 98.8 04/07/19 21:00 98.1 94 26 105/41 (62) 93 Mechanical Ventilator 45.00 04/07/19 20:15 93 26 92 60 7/6/19 20:03 Mechanical Ventilator 04/07/19 20:00 Mechanical Ventilator 45.00 04/07/19 20:00 98.1 94 26 111/44 (66) 92 Mechanical Ventilator 45.00 04/07/19 19:05 88 26 94 45 04/07/19 19:00 97.6 88 26 98/40 (59) 93 Mechanical Ventilator 45.00 04/07/19 19:00 98.8 04/07/19 19:00 88 04/07/19 18:13 98.0 04/07/19 18:00 97.3 89 25 99/41 (60) 93 Mechanical Ventilator 45.00 04/07/19 17:07 98 26 93 45 04/07/19 17:00 97.9 98 25 110/46 (67) 90 Mechanical Ventilator 45.00 04/07/19 16:26 98.4 04/07/19 16:07 Mechanical Ventilator 45.00 04/07/19 16:05 98.5 04/07/19 16:00 98.1 104 22 125/48 (73) 93 Mechanical Ventilator 45.00 04/07/19 15:55 105 132/51 04/07/19 15:00 97.9 105 26 123/47 (72) 91 Mechanical Ventilator 45.00 04/07/19 14:37 98.6 04/07/19 14:36 105 27 91 45 04/07/19 14:00 98.1 105 25 127/49 (75) 99 Mechanical Ventilator 45.00 04/07/19 13:04 98.6 04/07/19 13:00 105 04/07/19 13:00 98.1 105 25 120/46 (70) 99 Mechanical Ventilator 45.00 04/07/19 12:00 98.1 104 24 118/50 (72) 99 Mechanical Ventilator 45.00 04/07/19 11:51 98.6 04/07/19 11:51 Mechanical Ventilator 45.00 04/07/19 11:01 98.7 04/07/19 11:00 98.1 103 26 116/45 (68) 97 Mechanical Ventilator 45.00 04/07/19 10:36 102 28 95 45 04/07/19 10:06 98.7 04/07/19 10:00 98.2 102 25 124/47 (72) 100 Mechanical Ventilator 45.00 04/07/19 09:13 98.7 7/6/19 09:00 98.2 102 26 120/47 (71) 96 Mechanical Ventilator 45.00 04/07/19 08:52 102 26 95 45 04/07/19 08:10 98.6 04/07/19 08:00 98.2 101 28 118/46 (70) 97 Mechanical Ventilator 45.00 04/07/19 07:32 98.1 100 14 123/49 (73) 98 Mechanical Ventilator 45.00 04/07/19 07:17 Mechanical Ventilator 45.00 04/07/19 07:13 98.4 04/07/19 07:00 99 04/07/19 07:00 97.8 100 25 124/48 (73) 96 Mechanical Ventilator 45.00 04/07/19 06:50 Mechanical Ventilator 04/07/19 06:42 99 30 97 45 04/07/19 06:00 97.8 96 22 122/47 (72) 95 Mechanical Ventilator 45.00 04/07/19 06:00 98.5 I & O 04/08/19 07:00 Intake Total 2881 ml Output Total 775 ml Balance 2106 ml Height & Weight Height: 5'11.00" Weight: 312lbs. 5.0oz. 141.879791cs; BMI Method:Stated General Appearance: WD/WN, Moderate Distress, Other (sedated on vent) HEENT: PERRL/EOMI, Moist Mucous Membranes Neck: Normal Inspection Respiratory: Decreased Breath Sounds Cardiovascular: Regular Rate, Rhythm, No Edema, No Murmur Capillary Refill: Greater Than 3 Seconds Gastrointestinal: soft Extremity: Normal Inspection, No Calf Tenderness, Pedal Edema Neurologic/Psychiatric: Other (sedated on vent ) Skin: Normal Color, Warm/Dry Results Lab Laboratory Tests 04/06/19 07:52 04/06/19 14:00 04/06/19 20:41 04/07/19 03:10 04/07/19 06:12 04/07/19 18:40 04/08/19 03:20 Assessment/Plan Assessment/Plan Acute respiratory failure with ARDS -Pa02/Fi02 = 162 -Continue vent -decrease Vt to 470 Increase RR to 24 PEEP10 -Plan for bronchoscopy tomorrow morning secondary to hemoptysis Acute NSTEMI s/p code blue -S/p Cath with stenting to LAD -S/p Therapeutic hypothermia -Cardiology following Hyperglycemia -Levemir 10 units Leukocytosis -[place] cultures pending -Add zosyn Hypotension -Levophed - titrate to D/C -IVF Hemoptysis - persistent -Started prior to admission -Pt will need bronchoscopy once stable - plan for Tuesday morning -CTA is negative for PE Metabolic lactic acidosis -Bicarb gtt currently CAD NANCY FUENTES DO Apr 08, 2019 05:59
[2019-04-08] MEDS: HYDROCORTISONE 100 MG/2 ML (Solu-CORTEF) VIAL IV SCH (06:07)
[2019-04-08] MEDS: PIPERACILLIN/TAZO 4.5 GM/NS 100 ML IV SCH ×4 (06:07→16:01)
--- NOTE | 2019-04-08 06:11 | Progress Note-Hospitalist ---
Subjective HPI/CC On Admission Date Seen by Provider: Apr 08, 2019 Time Seen by Provider: 06:06 Pt is a 74yoCM who presented to the ER due to chest pain. History is obtained only through the records because he is intubated. Reportedly he had been having chest pain on and off and putting it off because it got better on it's own. He was found to have a mildly elevated troponin and d-dimer so went to CT for CTA to rule out PE or dissection. CTA chest was negative and shortly upon return to the ER he was noticed to be gurgling and in v-fib arrest. ACLS protocol was initiated in the ER and he was shocked x1 with conversion to PEA. He received epi pushes x1 and CPR and ultimately had ROSC. 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 He was intubated in the ER and central line was placed. I was later able to talk to the who states that he has been having chest pain and dyspnea with exertion that resolved with rest. He had been to see his Primary ca re provider a couple of times over the last month for a cough and SOB. He was treated with inhalers, steroids, and antibiotics without improvement. He had worsening pain today and his decided to bring him to the ER. Subjective/Events-last exam Pt remains intuabted and sedated. Did have episodes of coughing overnight. Discussed with RN and Dr Penny. Will starte precedex and wean other sedation. Focused Exam Lactate Level 04/06/19 08:20: Lactic Acid Level 1.92 04/06/19 12:00: Lactic Acid Level 1.75 04/07/19 00:05: Lactic Acid Level 2.00 Objective Exam Vital Signs Vital Signs Date Time Temp Pulse Resp B/P (MAP) Pulse Ox O2 Delivery O2 Flow Rate FiO2 04/08/19 06:00 97.4 85 26 105/43 (63) 97 Mechanical Ventilator 45.00 04/08/19 04:00 60 Capillary Refill : Greater Than 3 Seconds General Appearance: Obese, Other (ill appearing, intubated) HEENT: Other (intubated) Neck: Other (central line in place) Respiratory: No Accessory Muscle Use, No Respiratory Distress Cardiovascular: Regular Rate, Rhythm, No Edema, No Murmur Gastrointestinal: Normal Bowel Sounds, Non Tender, Soft Genital/Rectal: Other (gaming in place with clear yellow urine) Extremity: No Pedal Edema Neurologic/Psychiatric: Other (sedated) Skin: Normal Color, Warm/Dry Results/Procedures Lab Laboratory Tests 04/07/19 06:12 04/07/19 18:40 04/08/19 03:20 Patient resulted labs reviewed. Imaging: Reviewed Imaging Report Assessment/Plan Assessment and Plan Assess & Plan/Chief Complaint Cardiac Arrest Critical Care Critically Ill Patient Diagnosis/Problems Diagnosis/Problems (1) Cardiac arrest with ventricular fibrillation Assessment & Plan: v-fib arrest on 04/04 in ER shock x1 ROSC obtained and arctic sun started at 04/04 and goal temperature reached at 0145 04/05 arctic sun protocol- at normothermia Pulm consulted, appreciate recs (2) Myocardial infarction Assessment & Plan: Underwent emergent high risk cath stents deployed cardiology consulted appreciate recs echo reveals preserved EF and mild/mod aortic stenosis Qualifiers: Myocardial infarction type: non-ST elevation myocardial infarction Qualified Codes: I21.4 - Non-ST elevation (NSTEMI) myocardial infarction (3) CAD (coronary artery disease) Assessment & Plan: s/p emergent cath and stents x2 in LAD Cardiology consulted, appreciate recs Aspirin and Plavix started Qualifiers: Coronary Disease-Associated Artery/Lesion type: [place] artery [place] vs. transplanted heart: [place] heart Associated angina: with stable angina Qualified Codes: I25.118 - Atherosclerotic heart disease of [place] coronary artery with other forms of angina pectoris (4) Acute respiratory failure Assessment & Plan: intubated post code Pulm consulted, appreciate recs Discussed with Dr Penny Concern for developing ARDS given Pa02/FiO2 gradient when shock improves will work on keeping net negative I/Os Bronch tomorrow Sedating weaning today Qualifiers: Respiratory failure complication: hypercapnia Qualified Codes: J96.02 - Acute respiratory failure with hypercapnia (5) Shock Assessment & Plan: Off levophed since yesterday AM Cardiology consulted Continue IVF (6) Metabolic acidosis Assessment & Plan: Resolved (7) Shock liver Assessment & Plan: trend, stable (8) Nonsustained ventricular tachycardia Assessment & Plan: On amio gtt per Cardiology (9) Hyperglycemia Assessment & Plan: No known diagnosis of diabetes Levemir started this AM by Dr Penny trend blood sugars Check a1c- still pending (10) Leukocytosis Assessment & Plan: new and likely reactive Cont on Zosyn Await cultures Qualifiers: Leukocytosis type: unspecified Qualified Codes: D72.829 - Elevated white blood cell count, unspecified MARY AGUILAR MD Apr 08, 2019 06:11
[2019-04-08] MEDS: NS W/KCL 20 MEQ/L 1,000 ML IV SCH ×2 (06:49→16:07)
--- NOTE | 2019-04-08 07:30 | NUR ---
Pt off Artic Sun per Dr. ellis. Will leave pt attached and monitor temp in the event that the Artic Sun should need turned back on. Will re-evaluate in the AM.
--- NOTE | 2019-04-08 08:10 | Diagnostic Imaging Report ---
Indication: Intubation. Comparison: 04/07/2019. Findings: Stable ET and enteric tubes. Progression of bilateral perihilar and basilar heterogeneous pulmonary opacities. Potential trace bilateral pleural effusions. No definitive pneumothorax. Impression: Worsening of central opacities may be due to edema or atelectasis. Dictated by: Dictated on workstation # [id number]
[2019-04-08] MEDS: ASPIRIN 81 MG CHEW (CHILDREN'S ASA) PO SCH (08:37)
[2019-04-08] MEDS: CLOPIDOGREL 75 MG (PLAVIX) TABLET PO SCH (09:02)
--- NOTE | 2019-04-08 10:20 | NUR ---
This RN in room due to pt BP decreased to 70's/40's. Presidex turned off and Dr. Penny called to report BNP and update on pt status. Pt gag reflex nonexistent at this time. Dr. Penny instructed this RN to turn off all sedation and see if pt would awake and follow commands. Propofol turned off at this time.
--- NOTE | 2019-04-08 10:42 | NUR ---
Pt's BP 86/46 at this time. Mean above 60, will continue to monitor. Pt remains non-responsive at this time.
--- NOTE | 2019-04-08 12:14 | Progress Note-Cardiology ---
Cardiology SOAP Progress Note Subjective: Intubated, on mech vent, unresponsive Objective: I&O/Vital Signs 04/08/19 04/08/19 04/08/19 04/08/19 00:30 00:31 01:00 01:00 Temp 98.1 Pulse 90 92 92 Resp 25 B/P (MAP) 102/42 (62) Pulse Ox 95 92 O2 Delivery Mechanical Ventilator Mechanical Ventilator O2 Flow Rate 45.00 FiO2 60 04/08/19 04/08/19 04/08/19 04/08/19 02:00 02:30 03:00 04:00 Temp 98.1 98.3 Pulse 89 90 87 Resp 25 B/P (MAP) 104/42 (62) 100/43 (62) Pulse Ox 94 94 96 O2 Delivery Mechanical Ventilator Mechanical Ventilator Mechanical Ventilator O2 Flow Rate 45.00 45.00 FiO2 60 60 04/08/19 04/08/19 04/08/19 04/08/19 04:00 04:25 04:54 05:00 Temp 97.8 98.5 98.5 Pulse 86 Resp 25 B/P (MAP) 98/42 (60) Pulse Ox 97 O2 Delivery Mechanical Ventilator Mechanical Ventilator O2 Flow Rate 45.00 04/08/19 04/08/19 04/08/19 04/08/19 05:00 06:00 06:00 06:20 Temp 97.6 98.5 97.4 Pulse 84 85 86 Resp B/P (MAP) 97/43 (61) 105/43 (63) Pulse Ox 97 97 97 O2 Delivery Mechanical Ventilator Mechanical Ventilator O2 Flow Rate 45.00 45.00 FiO2 50 04/08/19 04/08/19 04/08/19 04/08/19 07:00 07:00 07:00 08:00 Temp 98.6 98.0 98.4 Pulse 88 89 94 Resp B/P (MAP) 111/47 (68) 128/55 (79) Pulse Ox 90 89 O2 Delivery Mechanical Ventilator Mechanical Ventilator O2 Flow Rate 45.00 60.00 04/08/19 04/08/19 04/08/19 04/08/19 08:00 09:00 10:00 10:31 Temp 98.6 98.0 Pulse 99 71 77 Resp 26 B/P (MAP) 138/55 (82) 80/43 (55) Pulse Ox 94 95 96 O2 Delivery Mechanical Ventilator Mechanical Ventilator Mechanical Ventilator O2 Flow Rate 60.00 60.00 FiO2 60 60 04/08/19 11:32 O2 Delivery Mechanical Ventilator FiO2 60 04/08/19 00:00 Intake Total 1633 ml Output Total 400 ml Balance 1233 ml Weight (Pounds): 312 Weight (Ounces): 5.0 Weight (Calculated Kilograms): 141.523982 Constitutional: other (intubated and being ventilated, unresponsive) Respiratory: other Cardiovascular: regular rate-rhythm, S1 and S2, systolic murmur (soft SERAFIN at card base) Gastrointestional: distended; No audible bowel sounds Extremities: swelling (mild edema); No clubbing, No cyanosis Neurologic/Psychiatric: other (unresponsive) Skin: No rash on exposed areas, No ulcerations on exposed areas Results/Procedures: Labs Laboratory Tests 04/07/19 18:40: White Blood Count 10.9, Red Blood Count 3.64L, Hemoglobin 10.1L, Hematocrit 32L, Mean Corpuscular Volume 87, Mean Corpuscular Hemoglobin 28, Mean Corpuscular Hemoglobin Concent 32, Red Cell Distribution Width 15.1H, Platelet Count 167, Mean Platelet Volume 9.4, Neutrophils (%) (Auto) 82H, Lymphocytes (%) (Auto) 9L, Monocytes (%) (Auto) 9, Eosinophils (%) (Auto) 0, Basophils (%) (Auto) 0, Ne utrophils # (Auto) 8.9H, Lymphocytes # (Auto) 1.0, Monocytes # (Auto) 1.0, Eosinophils # (Auto) 0.0, Basophils # (Auto) 0.0, Prothrombin Time 14.4, INR Comment 1.1, Activated Partial Thromboplast Time 34, Sodium Level 142, Potassium Level 4.4, Chloride Level 110H, Carbon Dioxide Level 27, Anion Gap 5, Blood Urea Nitrogen 16, Creatinine 0.73, Estimat Glomerular Filtration Rate > 60, BUN/Creatinine Ratio 22, Glucose Level 119H, Calcium Level 7.3L, Phosphorus Level 2.2L, Magnesium Level 2.6H 04/07/19 18:45: Glucometer 122H 04/07/19 22:59: Glucometer 98 04/08/19 03:20: White Blood Count 11.0, Red Blood Count 3.63L, Hemoglobin 10.0L, Hematocrit 32L, Mean Corpuscular Volume 87, Mean Corpuscular Hemoglobin 28, Mean Corpuscular Hemoglobin Concent 32, Red Cell Distribution Width 15.2H, Platelet Count 157, Mean Platelet Volume 9.4, Neutrophils (%) (Auto) 82H, Lymphocytes (%) (Auto) 10L , Monocytes (%) (Auto) 8, Eosinophils (%) (Auto) 0, Basophils (%) (Auto) 0, Neutrophils # (Auto) 9.0H, Lymphocytes # (Auto) 1.1, Monocytes # (Auto) 0.9, Eosinophils # (Auto) 0.0, Basophils # (Auto) 0.0, Prothrombin Time 14.2, INR Comment 1.1, Activated Partial Thromboplast Time 34, Sodium Level 141, Potassium Level 4.5, Chloride Level 108H, Carbon Dioxide Level 26, Anion Gap 7, Blood Urea Nitrogen 20H, Creatinine 0.73, Estimat Glomerular Filtration Rate > 60, BUN/Creatinine Ratio 27, Glucose Level 112H, Calcium Level 7.3L, Phosphorus Level 2.4, Magnesium Level 2.5H, Blood Gas Puncture Site LEFT ARTLINE, Blood Gas Patient Temperature 98.7, Arterial Blood pH 7.43, Arterial Blood Partial Pressure CO2 41, Arterial Blood Partial Pressure O2 81, Arterial Blood HCO3 27, Arterial Blood Total CO2 27.8, Arterial Blood Oxygen Saturation 97, Arterial Blood Base Excess 2.6H, Omid Test POSITIVE, Blood Gas Ventilator Setting YES, Blood Gas Inspired Oxygen 50% VENT 04/08/19 09:20: B-Type Natriuretic Peptide 1613.9H 04/08/19 10:48: Lactic Acid Level 1.30 04/08/19 11:18: Glucometer 119H Microbiology 04/05/19 Blood Culture - Preliminary, Resulted No growth 04/04/19 Gram Stain - Final, Complete 04/04/19 Sputum Culture - Final, Complete No growth 04/05/19 Urine Culture - Final, Complete NO GROWTH Laboratory Tests 04/06/19 14:00 04/06/19 20:41 04/07/19 03:10 04/07/19 06:12 04/07/19 18:40 04/08/19 03:20 A/P: Assessment: Ac resp failure due to ARDS after cardiac arrest on 04/04/19 Bleeding diathesis: blood in ET tube and slow oozing around sites of iv lines Ac [place] on 04/04/19 leading to VF cardiac arrest and cardiogenic shock and ARDS CAD. Emergency cath of 04/04/29 showed ostial/prox 80-90% and prox/mid 80-90% stenoses of the LAD; each stented with Alpine Xience 3.5 x 12 at 20 shad; other vessels showed diffuse mod disease Echo of 04/08/19: LVEF 45%, mild concentric LVH, aortic valve area 2 sq cm (very mild ), RVSP 18 mmHg Brief runs of NSVT and AIVR, currently stable Plan: * Prognosis guarded to poor * I had a long and detailed discussion with his son and explained prognosis to him and answered questions * Hold sc heparin and oral ASA today because of bleeding diathesis. Continue Plavix because of fresh LAD stents * Not suitable for beta-blockers because of low bp. LUCIANA-inhib/ARB not mandatory because EF is greater than 50% * Monitor labs VIJAY SOLORZANO MD FACP FAC CCDS Apr 08, 2019 12:14
[2019-04-08] MEDS: DEXMEDETOMIDINE INJECTION 1,000 MCG in NS (IVPB) 250 ML IV SCH (15:24)
--- NOTE | 2019-04-08 17:28 | NUR ---
Pt temp has done well today. Not increasing above 99.1. Pt 98.7 at this time. Will continue to monitor.
[2019-04-08 18:31] LABS: BASOPHILS % (AUTO) 0 % (0-10); EOSINOPHILS % (AUTO) 0 % (0-10); HEMATOCRIT 32 % (40-54); HEMOGLOBIN 9.9 G/DL (13.3-17.7); LYMPHOCYTES # (AUTO) 2.1 X 10^3 (1.0-4.0); LYMPHOCYTES % (AUTO) 19 % (12-44); MEAN CORPUSCULAR HEMOGLOBIN 28 PG (25-34); MEAN CORPUSCULAR HGB CONC 31 G/DL (32-36); MEAN CORPUSCULAR VOLUME 88 FL (80-99); MEAN PLATELET VOLUME 9.3 FL (7.4-10.4); MONOCYTES # (AUTO) 0.9 X 10^3 (0.0-1.0); MONOCYTES % (AUTO) 9 % (0-12); NEUTROPHILS % (AUTO) 73 % (42-75); PLATELET COUNT 180 10^3/uL (130-400); RED CELL DISTRIBUTION WIDTH 15.1 % (10.0-14.5)
[2019-04-08 18:42] LABS: INR 1.1 (0.8-1.4); PROTHROMBIN TIME PATIENT 14.5 SEC (12.2-14.7)
[2019-04-08 18:49] LABS: BUN/CREATININE RATIO 32; CALCIUM 7.4 MG/DL (8.5-10.1); CARBON DIOXIDE 27 MMOL/L (21-32); CHLORIDE 109 MMOL/L (98-107); CREATININE SERUM 0.71 MG/DL (0.60-1.30); GFR ESTIMATED > 60; GLUCOSE 82 MG/DL (70-105); MAGNESIUM 2.4 MG/DL (1.8-2.4); PHOSPHORUS 2.6 MG/DL (2.3-4.7); POTASSIUM 4.8 MMOL/L (3.6-5.0); SODIUM 141 MMOL/L (135-145)
--- NOTE | 2019-04-08 21:44 | NUR ---
JEYSON HELD D/T BS OF 73. E-ICU NOTIFIED.
[2019-04-09] VITALS (34 sets, daily range): BP systolic 85–191; BP diastolic 42–67
[2019-04-09] MEDS: PIPERACILLIN/TAZO 4.5 GM/NS 100 ML IV SCH ×8 (00:06→22:38)
[2019-04-09] MEDS: PROPOFOL DRIP (ICU) 100 ML IV SCH ×4 (00:14→21:11)
[2019-04-09] MEDS ORDERED: DEXTROSE 50% 50 ML (IMS) SYR ONE ×3 (00:16→17:48)
[2019-04-09] MEDS: inSUlin ASPART (NovoLOG) 1 UNIT/0.01 ML (CHARGE PER UNIT) SC SCH ×4 (00:18→17:57)
[2019-04-09] MEDS ORDERED: DEXTROSE 50% 50 ML (IMS) SYR IV ONE (00:30)
[2019-04-09] MEDS: NS W/KCL 20 MEQ/L 1,000 ML IV SCH (02:45)
[2019-04-09] MEDS: ARTIFICIAL TEARS OINT (LACRI-LUBE) 3.5 GM TUBE OU SCH ×4 (02:48→21:12)
[2019-04-09 03:18] LABS: BASOPHILS % (AUTO) 0 % (0-10); EOSINOPHILS % (AUTO) 0 % (0-10); HEMATOCRIT 34 % (40-54); HEMOGLOBIN 10.7 G/DL (13.3-17.7); LYMPHOCYTES # (AUTO) 2.7 X 10^3 (1.0-4.0); LYMPHOCYTES % (AUTO) 21 % (12-44); MEAN CORPUSCULAR HEMOGLOBIN 28 PG (25-34); MEAN CORPUSCULAR HGB CONC 31 G/DL (32-36); MEAN CORPUSCULAR VOLUME 88 FL (80-99); MEAN PLATELET VOLUME 9.6 FL (7.4-10.4); MONOCYTES # (AUTO) 1.4 X 10^3 (0.0-1.0); MONOCYTES % (AUTO) 11 % (0-12); NEUTROPHILS # (AUTO) 8.9 X 10^3 (1.8-7.8); NEUTROPHILS % (AUTO) 68 % (42-75); PLATELET COUNT 207 10^3/uL (130-400); RED CELL DISTRIBUTION WIDTH 15.2 % (10.0-14.5)
[2019-04-09 03:24] LABS: INR 1.1 (0.8-1.4); PROTHROMBIN TIME PATIENT 14.3 SEC (12.2-14.7)
[2019-04-09 03:31] LABS: BUN/CREATININE RATIO 33; CALCIUM 7.7 MG/DL (8.5-10.1); CARBON DIOXIDE 23 MMOL/L (21-32); CHLORIDE 111 MMOL/L (98-107); CREATININE SERUM 0.69 MG/DL (0.60-1.30); GFR ESTIMATED > 60; GLUCOSE 62 MG/DL (70-105); MAGNESIUM 2.4 MG/DL (1.8-2.4); PHOSPHORUS 2.4 MG/DL (2.3-4.7); POTASSIUM 4.7 MMOL/L (3.6-5.0); SODIUM 141 MMOL/L (135-145)
[2019-04-09 03:34] LABS: ABG BASE EXCESS 1.3 MMOL/L (-2.5-2.5); ABG OXYGEN SATURATION 94 % (94-100); ABG PCO2 43 MMHG (35-45); ABG PH 7.39 (7.37-7.43); ABG PO2 67 MMHG (79-93); ALLENS TEST ARTLINE
[2019-04-09 03:35] LABS: INSPIRED O2 60% FIO2; PATIENT TEMP 99.5; VENTILATOR YES
[2019-04-09] MEDS: POTASSIUM CL 10MEQ/50ML IVPB 50 ML IV SCH (04:06)
[2019-04-09] MEDS: KCL 20 MEQ TAB (K-DUR) PO SCH (04:07)
[2019-04-09] MEDS: MAGNESIUM 1 GM/100 ML IVPB 100 ML IV SCH (04:07)
[2019-04-09] MEDS ORDERED: DEXMEDETOMIDINE INJECTION 200 MCG in NS (IVPB) 50 ML IV SCH ×2 (06:00→06:45)
[2019-04-09] MEDS ORDERED: FUROSEMIDE 40 MG/4 ML INJ (LASIX) IVP ONE ×2 (06:00→09:00)
[2019-04-09] MEDS ORDERED: D5 1/2 NS 1000 ML IV SOLUTION 0 ML IV ONE (06:13)
[2019-04-09] MEDS ORDERED: FUROSEMIDE 40 MG/4 ML INJ (LASIX) ONE (06:13)
[2019-04-09] MEDS ORDERED: D5 1/2 NS W/KCL 10 MEQ/L 1,000 ML IV ONE (06:20)
[2019-04-09] MEDS: D5 1/2 NS W/KCL 10 MEQ/L 1,000 ML IV SCH (06:39)
--- NOTE | 2019-04-09 07:46 | Diagnostic Imaging Report ---
PATIENT HISTORY: Post Code. TECHNIQUE: Single frontal view of the chest. COMPARISON: 04/08/2019 FINDINGS: Lung volumes are mildly low. There is cardiomegaly. Airspace opacities are seen in the lungs bilaterally, right greater than left. Aeration on the right appears stable. Aeration in the left lung is minimally improved. No significant pleural effusion or pneumothorax is seen. The endotracheal tube and enteric tube are again noted. The left jugular line appears unchanged projecting over the innominate vein. IMPRESSION: 1. Centrally predominant airspace opacities bilaterally, stable on the right and minimally improved on the left, most likely edema. Dictated by: Dictated on workstation # [id number]
[2019-04-09] MEDS ORDERED: LIDOCAINE PF 1% 2 ML VIAL IJ ONE (07:51)
[2019-04-09] MEDS: CLOPIDOGREL 75 MG (PLAVIX) TABLET PO SCH (08:05)
--- NOTE | 2019-04-09 08:15 | Physical Therapy Progress Note ---
Therapy Progress Note Patient is currently sedated and on mechanical ventilator. PT to evaluate patient when medically stable and able to actively participate. KEEGAN CISNEROS PT Apr 09, 2019 08:15
[2019-04-09] MEDS: DEXMEDETOMIDINE INJECTION 1,000 MCG in NS (IVPB) 250 ML IV SCH (08:32)
--- NOTE | 2019-04-09 08:49 | Progress Note-Cardiology ---
Cardiology SOAP Progress Note Subjective: Intubated, on mech vent, unresponsive Objective: I&O/Vital Signs 04/08/19 04/08/19 04/08/19 04/08/19 21:00 21:50 22:00 23:00 Temp 99.2 98.8 99.0 Pulse 105 108 108 109 Resp 31 32 B/P (MAP) 153/62 (92) 153/60 (91) 168/65 (99) Pulse Ox 97 96 95 100 O2 Delivery Mechanical Ventilator Mechanical Ventilator Mechanical Ventilator O2 Flow Rate 80.00 80.00 80.00 FiO2 70 04/08/19 04/09/19 04/09/19 04/09/19 23:04 00:00 00:00 00:14 Temp 99.5 99.0 Pulse 109 Resp 29 B/P (MAP) 150/58 (88) Pulse Ox 100 O2 Delivery Mechanical Ventilator Mechanical Ventilator Mechanical Ventilator O2 Flow Rate 80.00 FiO2 80 04/09/19 04/09/19 04/09/19 04/09/19 01:00 01:00 01:28 02:00 Temp 98.8 Pulse 112 112 110 Resp 28 B/P (MAP) 152/57 (88) Pulse Ox 98 99 O2 Delivery Mechanical Ventilator Mechanical Ventilator O2 Flow Rate 70.00 60.00 FiO2 70 04/09/19 04/09/19 04/09/19 04/09/19 02:00 03:00 03:49 04:00 Temp 98.8 99.0 98.8 Pulse 110 106 107 110 Resp 27 30 B/P (MAP) 142/56 (84) 142/57 (85) 155/53 (87) Pulse Ox 95 97 100 99 O2 Delivery Mechanical Ventilator Mechanical Ventilator Mechanical Ventilator O2 Flow Rate 60.00 60.00 60.00 FiO2 60 04/09/19 04/09/19 04/09/19 04/09/19 04:00 04:06 05:00 06:00 Temp 98.8 98.2 98.4 Pulse 107 101 103 Resp 25 B/P (MAP) 168/58 133/50 (77) 157/57 (90) Pulse Ox 100 98 97 O2 Delivery Mechanical Ventilator Mechanical Ventilator Mechanical Ventilator Mechanical Ventilator O2 Flow Rate 60.00 60.00 60.00 FiO2 60 04/09/19 04/09/19 04/09/19 04/09/19 06:50 07:00 07:00 08:00 Temp 98.4 98.2 Pulse 104 103 101 96 Resp 26 22 26 B/P (MAP) 135/54 (81) 103/45 (64) Pulse Ox 96 96 100 O2 Delivery Mechanical Ventilator Mechanical Ventilator O2 Flow Rate 50.00 50.00 FiO2 60 04/09/19 08:00 O2 Delivery Mechanical Ventilator FiO2 60 04/09/19 00:00 Intake Total 235 ml Output Total 1000 ml Balance -765 ml Weight (Pounds): 320 Weight (Ounces): 0.6 Weight (Calculated Kilograms): 145.731255 Constitutional: other (intubated and being ventilated, unresponsive) Respiratory: other Cardiovascular: regular rate-rhythm, S1 and S2, systolic murmur (soft SERAFIN at card base) Gastrointestional: distended; No audible bowel sounds Extremities: swelling (mild edema); No clubbing, No cyanosis Neurologic/Psychiatric: other (unresponsive) Skin: No rash on exposed areas, No ulcerations on exposed areas Results/Procedures: Labs Laboratory Tests 04/08/19 09:20: B-Type Natriuretic Peptide 1613.9H 04/08/19 10:48: Lactic Acid Level 1.30 04/08/19 11:18: Glucometer 119H 04/08/19 18:20: White Blood Count 11.0, Red Blood Count 3.57L, Hemoglobin 9.9L, Hematocrit 32L, Mean Corpuscular Volume 88, Mean Corpuscular Hemoglobin 28, Mean Corpuscular Hemoglobin Concent 31L, Red Cell Distribution Width 15.1H, Platelet Count 180, Mean Platelet Volume 9.3, Neutrophils (%) (Auto) 73, Lymphocytes (%) (Auto) 19, Monocytes (%) (Auto) 9, Eosinophils (%) (Auto) 0, Basophils (%) (Auto) 0, Neutrophils # (Auto) 8.0H, Lymphocytes # (Auto) 2.1, Monocytes # (Auto) 0.9, Eosinophils # (Auto) 0.0, Basophils # (Auto) 0.0, Prothrombin Time 14.5, INR Comment 1.1, Activated Partial Thromboplast Time 32, Sodium Level 141, Potassium Level 4.8, Chloride Level 109H, Carbon Dioxide Level 27, Anion Gap 5, Blood Urea Nitrogen 23H, Creatinine 0.71, Estimat Glomerular Filtration Rate > 60, BUN/Creatinine Ratio 32, Glucose Level 82, Calcium Level 7.4L, Phosphorus Level 2.6, Magnesium Level 2.4 04/08/19 18:28: Glucometer 78 04/08/19 20:25: Triglycerides Level 91 04/08/19 21:31: Glucometer 73 04/09/19 00:17: Glucometer 67L 04/09/19 03:00: White Blood Count 13.0H, Red Blood Count 3.87L, Hemoglobin 10.7L, Hematocrit 34L , Mean Corpuscular Volume 88, Mean Corpuscular Hemoglobin 28, Mean Corpuscular Hemoglobin Concent 31L, Red Cell Distribution Width 15.2H, Platelet Count 207, Mean Platelet Volume 9.6, Neutrophils (%) (Auto) 68, Lymphocytes (%) (Auto) 21, Monocytes (%) (Auto) 11, Eosinophils (%) (Auto) 0, Basophils (%) (Auto) 0, Neutrophils # (Auto) 8.9H, Lymphocytes # (Auto) 2.7, Monocytes # (Auto) 1.4H, Eosinophils # (Auto) 0.0, Basophils # (Auto) 0.0, Prothrombin Time 14.3, INR Comment 1.1, Activated Partial Thromboplast Time 31, Blood Gas Puncture Site LEFT ARTLINE, Blood Gas Patient Temperature 99.5, Arterial Blood pH 7.39, Arterial Blood Partial Pressure CO2 43, Arterial Blood Partial Pressure O2 67L, Arterial Blood HCO3 26, Arterial Blood Total CO2 27.0, Arterial Blood Oxygen Saturation 94, Arterial Blood Base Excess 1.3, Omid Test ARTLINE, Blood Gas Ventilator Setting YES, Blood Gas Inspired Oxygen 60% FIO2, Sodium Level 141, Potassium Level 4.7, Chloride Level 111H, Carbon Dioxide Level 23, Anion Gap 7, Blood Urea Nitrogen 23H, Creatinine 0.69, Estimat Glomerular Filtration Rate > 60, BUN/Creatinine Ratio 33, Glucose Level 62L, Calcium Level 7.7L, Phosphorus Level 2.4, Magnesium Level 2.4 04/09/19 05:11: Glucometer 67L Microbiology 04/05/19 Blood Culture - Preliminary, Resulted No growth 04/04/19 Gram Stain - Final, Complete 04/04/19 Sputum Culture - Final, Complete No growth 04/05/19 Urine Culture - Final, Complete NO GROWTH Laboratory Tests 04/07/19 18:40 04/08/19 03:20 04/08/19 18:20 04/09/19 03:00 A/P: Assessment: Ac resp failure due to ARDS after cardiac arrest on 04/04/19 Bronchoscopy of 04/09/19 did not show any active bleeding Ac [place] on 04/04/19 leading to VF cardiac arrest and cardiogenic shock and ARDS CAD. Emergency cath of 04/04/29 showed ostial/prox 80-90% and prox/mid 80-90% stenoses of the LAD; each stented with Alpine Xience 3.5 x 12 at 20 shad; other vessels showed diffuse mod disease Echo of 04/08/19: LVEF 45%, mild concentric LVH, aortic valve area 2 sq cm (very mild ), RVSP 18 mmHg Brief runs of NSVT and AIVR, currently stable Plan: * I discussed his case in detail with Dr Penny this am * Given pulm edema due to vol overload and ac systolic CHF, we recommend diuretics * Resume ASA and continue Plavix, given no active bleeding seen on bronchoscopy * Not suitable for beta-blockers because of low bp. LUCIANA-inhib/ARB not mandatory because EF is greater than 50% * Monitor labs * Prognosis guarded VIJAY SOLORZANO MD [facility] CCDS Apr 09, 2019 08:49
[2019-04-09 08:56] LABS: ABG BASE EXCESS 2.3 MMOL/L (-2.5-2.5); ABG OXYGEN SATURATION 93 % (94-100); ABG PCO2 42 MMHG (35-45); ABG PH 7.41 (7.37-7.43); ABG PO2 63 MMHG (79-93); ABG TCO2 27.8 MMOL/L (21.0-31.0)
[2019-04-09] MEDS ORDERED: ASPIRIN 81 MG CHEW (CHILDREN'S ASA) PO ONE (09:00)
[2019-04-09 09:02] LABS: ALLENS TEST ART LINE
[2019-04-09 09:03] LABS: INSPIRED O2 50%; PATIENT TEMP 36.8
[2019-04-09] MEDS: FUROSEMIDE 40 MG/4 ML INJ (LASIX) IVP SCH (09:29)
[2019-04-09] MEDS: ASPIRIN 81 MG CHEW (CHILDREN'S ASA) PO SCH (09:29)
[2019-04-09 10:15] LABS: BODY FLUID SOURCE OTHER
[2019-04-09 10:20] LABS: BF OTHER CELLS 64 %; BODY FLUID APPEARENCE MKD CLDY; BODY FLUID COLOR RED; LYMPHOCYTES,BODY FLUID 25 %
[2019-04-09 10:29] LABS: BODY FLUID APPEARENCE MKD CLDY; BODY FLUID COLOR RED; BODY FLUID SOURCE OTHER
[2019-04-09 10:30] LABS: BF OTHER CELLS 69 %; LYMPHOCYTES,BODY FLUID 22 %
[2019-04-09] MEDS: RT-ALBUTEROL/IPRATROPIUM 3 ML (DUONEB) VIAL INH SCH ×4 (10:55→22:37)
--- NOTE | 2019-04-09 11:04 | Occ Therapy Progress Note ---
Therapy Progress Note Pt. currently on mechanical ventilator with sedation. Will continue to monitor for skilled OT treatment. [id number] TIFFANY MCCALL OT Apr 09, 2019 11:04
[2019-04-09] MEDS ORDERED: hydrALAZINE (APESOLINE) 20 MG/ML VIAL IV PRN ×2 (11:30→11:45)
--- NOTE | 2019-04-09 13:10 | NUR ---
Pastoral care visit, met with pts family, offered support.
--- NOTE | 2019-04-09 17:17 | Progress Note-Hospitalist ---
Progress Note Progress Notes/Assess & Plan Date Seen 04/09/19 Time Seen by Provider: 17:15 Assessment & Plan The patient is off the ARTIC SUN. Focused Exam Lactate Level 04/07/19 00:05: Lactic Acid Level 2.00 04/08/19 10:48: Lactic Acid Level 1.30 PRATIK LOWRY MD Apr 09, 2019 17:17
--- NOTE | 2019-04-09 17:17 | Pulmonary Procedures ---
Pulmonary Procedures Date of Procedure Date of Service: Apr 09, 2019 Bronch Bronchoscopy with bilateral bronchial washes RML BAL . Preop DX copious amount of bloody sputum Postop DX: same No signs of active bleeding Complications: none After informed consent obtained and formal time out pt was sedated using p ropofol, Fentanyl and Versed. Bronchoscope was advanced through the ET tube. 1% lidocaine was used to anesthetize mariela, and left/right main stem bronchus. An anatomical tour was undertaken down to the segmental bronchi bilaterally. No endobronchial lesions noted.Bilateral bronchial washes and RML BAL were obtained. Pt tolerated procedure well. No complications noted. Stat CXR is pending. NANCY FUENTES DO Apr 09, 2019 17:17
--- NOTE | 2019-04-09 17:17 | Pulmonary Progress Note ---
Subjective Time Seen by a Provider: 13:25 Subjective/Events-last exam Pt sedated on vent Sepsis Event Evaluation Height, Weight, BMI Height: 5'11.00" Weight: 320lbs. 0.6oz. 145.210058kw; BMI Method:Stated Focused Exam Lactate Level 04/07/19 00:05: Lactic Acid Level 2.00 04/08/19 10:48: Lactic Acid Level 1.30 Exam Exam Vital Signs Date Time Temp Pulse Resp B/P (MAP) Pulse Ox O2 Delivery O2 Flow Rate FiO2 04/09/19 17:00 97.4 101 31 138/50 (79) 98 Mechanical Ventilator 40.00 04/09/19 16:00 97.0 101 28 138/51 (80) 100 Mechanical Ventilator 40.00 04/09/19 15:00 95.8 101 31 130/52 (78) 100 Mechanical Ventilator 40.00 04/09/19 14:12 101 33 98 30 04/09/19 14:00 95.4 101 31 136/53 (80) 100 Mechanical Ventilator 40.00 04/09/19 13:00 95.4 94 33 85/44 (58) 99 Mechanical Ventilator 40.00 04/09/19 13:00 94 04/09/19 12:00 Mechanical Ventilator 60 04/09/19 12:00 96.0 120 34 153/52 (85) 95 Mechanical Ventilator 40.00 04/09/19 11:37 121 32 94 30 04/09/19 11:00 97.4 101 35 184/67 (106) 100 Mechanical Ventilator 40.00 04/09/19 10:55 102 36 100 40 04/09/19 10:00 98.2 89 26 140/58 (85) 100 Mechanical Ventilator 40.00 04/09/19 09:15 Mechanical Ventilator 40.00 04/09/19 09:12 88 26 100 50 04/09/19 09:10 88 04/09/19 09:00 98.2 89 26 94/42 (59) 100 Mechanical Ventilator 50.00 04/09/19 08:00 Mechanical Ventilator 60 04/09/19 08:00 98.2 96 26 103/45 (64) 100 Mechanical Ventilator 50.00 04/09/19 07:00 101 04/09/19 07:00 98.4 103 22 135/54 (81) 96 Mechanical Ventilator 50.00 04/09/19 06:50 104 26 96 60 04/09/19 06:00 98.4 103 25 157/57 (90) 97 Mechanical Ventilator 60.00 04/09/19 05:00 98.2 101 26 133/50 (77) 98 Mechanical Ventilator 60.00 04/09/19 04:06 98.8 107 27 168/58 100 Mechanical Ventilator 60.00 04/09/19 04:00 Mechanical Ventilator 60 04/09/19 04:00 98.8 110 30 155/53 (87) 99 Mechanical Ventilator 60.00 04/09/19 03:49 107 27 100 60 04/09/19 03:00 99.0 106 27 142/57 (85) 97 Mechanical Ventilator 60.00 04/09/19 02:00 98.8 110 27 142/56 (84) 95 Mechanical Ventilator 60.00 04/09/19 02:00 Mechanical Ventilator 60.00 04/09/19 01:28 110 28 99 70 04/09/19 01:00 112 04/09/19 01:00 98.8 112 27 152/57 (88) 98 Mechanical Ventilator 70.00 04/09/19 00:14 Mechanical Ventilator 04/09/19 00:00 Mechanical Ventilator 80 04/09/19 00:00 99.0 109 29 150/58 (88) 100 Mechanical Ventilator 80.00 04/08/19 23:04 99.5 04/08/19 23:00 99.0 109 32 168/65 (99) 100 Mechanical Ventilator 80.00 04/08/19 22:00 98.8 108 26 153/60 (91) 95 Mechanical Ventilator 80.00 04/08/19 21:50 108 27 96 70 04/08/19 21:00 99.2 105 31 153/62 (92) 97 Mechanical Ventilator 80.00 04/08/19 20:11 Mechanical Ventilator 70.00 04/08/19 20:00 Mechanical Ventilator 80 04/08/19 20:00 99.2 98 14 145/66 (92) 100 Mechanical Ventilator 80.00 04/08/19 19:55 98 26 100 80 04/08/19 19:34 99.7 96 26 135/61 (85) 93 Mechanical Ventilator 80.00 04/08/19 19:00 94 04/08/19 18:29 93 26 94 80 04/08/19 18:00 99.0 93 26 128/61 (83) 92 Mechanical Ventilator 80.00 I & O 04/09/19 06:59 Intake Total 1870 ml Output Total 1650 ml Balance 220 ml Height & Weight Height: 5'11.00" Weight: 320lbs. 0.6oz. 145.944778pk; BMI Method:Stated General Appearance: Obese, Other (ill appearing, intubated) HEENT: Other (intubated) Neck: Other (central line in place) Respiratory: No Accessory Muscle Use, No Respiratory Distress Cardiovascular: Regular Rate, Rhythm, No Edema, No Murmur Capillary Refill: Greater Than 3 Seconds Gastrointestinal: soft Extremity: No Pedal Edema Neurologic/Psychiatric: Other (sedated) Skin: Normal Color, Warm/Dry Results Lab Laboratory Tests 04/07/19 18:40 04/08/19 03:20 04/08/19 18:20 04/09/19 03:00 Assessment/Plan Assessment/Plan Acute respiratory failure with ARDS -Pa02/Fi02 = 162 -Continue vent -decrease Vt to 470 Increase RR to 24 PEEP10 -Plan for bronchoscopy tomorrow morning secondary to hemoptysis Acute NSTEMI s/p code blue -S/p Cath with stenting to LAD -S/p Therapeutic hypothermia -Cardiology following Hyperglycemia -Levemir 10 units Leukocytosis -[place] cultures pending -Add zosyn Hypotension -Levophed - titrate to D/C -IVF Hemoptysis - persistent -Started prior to admission -Pt will need bronchoscopy once stable - plan for Tuesday morning -CTA is negative for PE Metabolic lactic acidosis -Bicarb gtt currently CAD NANCY FUENTES DO Apr 09, 2019 17:17
--- NOTE | 2019-04-09 19:00 | NUR ---
DURING BED SIDE SHIFT ASSESSMENT, THIS RN AND DAY SHIFT NURSE NOTICED A SPLOTCHY RASH TO UPPER TRUNK.
[2019-04-10] VITALS (31 sets, daily range): BP systolic 92–177; BP diastolic 45–72
[2019-04-10] MEDS: inSUlin ASPART (NovoLOG) 1 UNIT/0.01 ML (CHARGE PER UNIT) SC SCH ×4 (00:49→18:15)
--- NOTE | 2019-04-10 01:00 | NUR ---
BED BATH GIVEN AND LINENS CHANGED AT THIS TIME. SKIN CARE PERFORMED.
--- NOTE | 2019-04-10 02:00 | NUR ---
PTS SKIN APPEARS TO BE SLIGHTLY JAUNDICE WITH AN ASHEN COLOR TO FACE.
[2019-04-10] MEDS: D5 1/2 NS W/KCL 10 MEQ/L 1,000 ML IV SCH ×2 (02:14→22:28)
[2019-04-10] MEDS: ARTIFICIAL TEARS OINT (LACRI-LUBE) 3.5 GM TUBE OU SCH ×3 (02:16→14:01)
[2019-04-10] MEDS: RT-ALBUTEROL/IPRATROPIUM 3 ML (DUONEB) VIAL INH SCH ×6 (02:44→22:09)
[2019-04-10 03:46] LABS: BASOPHILS % (AUTO) 0 % (0-10); EOSINOPHILS # (AUTO) 0.1 10^3/uL (0.0-0.3); EOSINOPHILS % (AUTO) 1 % (0-10); HEMATOCRIT 37 % (40-54); HEMOGLOBIN 11.5 G/DL (13.3-17.7); LYMPHOCYTES # (AUTO) 1.7 X 10^3 (1.0-4.0); LYMPHOCYTES % (AUTO) 14 % (12-44); MEAN CORPUSCULAR HEMOGLOBIN 27 PG (25-34); MEAN CORPUSCULAR HGB CONC 31 G/DL (32-36); MEAN CORPUSCULAR VOLUME 87 FL (80-99); MEAN PLATELET VOLUME 9.4 FL (7.4-10.4); MONOCYTES # (AUTO) 1.5 X 10^3 (0.0-1.0); MONOCYTES % (AUTO) 13 % (0-12); NEUTROPHILS # (AUTO) 8.4 X 10^3 (1.8-7.8); NEUTROPHILS % (AUTO) 72 % (42-75); PLATELET COUNT 194 10^3/uL (130-400); RED CELL DISTRIBUTION WIDTH 15.2 % (10.0-14.5); WHITE BLOOD COUNT 11.7 10^3/uL (4.3-11.0)
[2019-04-10 03:47] LABS: ABG BASE EXCESS 1.1 MMOL/L (-2.5-2.5); ABG OXYGEN SATURATION 91 % (94-100); ABG PCO2 34 MMHG (35-45); ABG PH 7.47 (7.37-7.43); ABG PO2 59 MMHG (79-93); ABG TCO2 25.4 MMOL/L (21.0-31.0)
[2019-04-10 03:58] LABS: ALLENS TEST ARTLINE; INSPIRED O2 30%; VENTILATOR YES
[2019-04-10 03:59] LABS: INR 1.1 (0.8-1.4); PATIENT TEMP 98.8; PROTHROMBIN TIME PATIENT 14.3 SEC (12.2-14.7)
[2019-04-10 04:02] LABS: BUN/CREATININE RATIO 28; CARBON DIOXIDE 23 MMOL/L (21-32); CHLORIDE 107 MMOL/L (98-107); CREATININE SERUM 0.75 MG/DL (0.60-1.30); POTASSIUM 4.6 MMOL/L (3.6-5.0); SODIUM 141 MMOL/L (135-145)
[2019-04-10 04:03] LABS: CALCIUM 8.2 MG/DL (8.5-10.1); GFR ESTIMATED > 60; GLUCOSE 78 MG/DL (70-105); MAGNESIUM 2.1 MG/DL (1.8-2.4); PHOSPHORUS 3.6 MG/DL (2.3-4.7)
[2019-04-10] MEDS: PROPOFOL DRIP (ICU) 100 ML IV SCH ×2 (04:51→19:38)
[2019-04-10] MEDS: KCL 20 MEQ TAB (K-DUR) PO SCH (05:38)
[2019-04-10] MEDS: MAGNESIUM 1 GM/100 ML IVPB 100 ML IV SCH (05:38)
[2019-04-10] MEDS: POTASSIUM CL 10MEQ/50ML IVPB 50 ML IV SCH (05:38)
[2019-04-10] MEDS: NS W/KCL 20 MEQ/L 1,000 ML IV SCH ×2 (05:39→15:11)
[2019-04-10] MEDS: PIPERACILLIN/TAZO 4.5 GM/NS 100 ML IV SCH ×6 (06:07→23:00)
--- NOTE | 2019-04-10 06:22 | Pulmonary Progress Note ---
Subjective Time Seen by a Provider: 06:20 Subjective/Events-last exam Pt is unresponsive on vent. Propofol is going at 20 and Fentanyl is off. Sepsis Event Evaluation Height, Weight, BMI Height: 5'11.00" Weight: 300lbs. 4.0oz. 136.288294tv; BMI Method:Stated Focused Exam Lactate Level 04/08/19 10:48: Lactic Acid Level 1.30 Exam Exam Vital Signs Date Time Temp Pulse Resp B/P (MAP) Pulse Ox O2 Delivery O2 Flow Rate FiO2 04/10/19 06:00 109 31 139/54 (82) 99 Mechanical Ventilator 30.00 04/10/19 05:00 112 32 133/58 (83) 100 Mechanical Ventilator 30.00 04/10/19 04:51 Mechanical Ventilator 04/10/19 04:00 Mechanical Ventilator 30 04/10/19 04:00 Mechanical Ventilator 30.00 04/10/19 04:00 115 34 137/65 (89) 98 Mechanical Ventilator 30.00 04/10/19 03:00 116 35 123/64 (83) 98 Mechanical Ventilator 30.00 04/10/19 02:44 115 32 98 30 04/10/19 02:00 116 36 177/61 (99) 98 Mechanical Ventilator 30.00 04/10/19 01:00 110 04/10/19 01:00 110 32 143/58 (86) 100 Mechanical Ventilator 30.00 04/10/19 00:00 Mechanical Ventilator 30 04/10/19 00:00 109 34 151/58 (89) 99 Mechanical Ventilator 30.00 04/09/19 23:00 105 32 123/52 (75) 100 Mechanical Ventilator 30.00 04/09/19 22:45 105 32 124/51 (75) 100 Mechanical Ventilator 30.00 04/09/19 22:39 105 32 100 30 04/09/19 22:00 112 31 124/49 (74) 100 Mechanical Ventilator 40.00 04/09/19 21:11 Mechanical Ventilator 04/09/19 21:00 114 36 175/63 (100) 100 Mechanical Ventilator 40.00 04/09/19 20:00 Mechanical Ventilator 30 04/09/19 20:00 112 34 163/59 (93) 99 Mechanical Ventilator 40.00 04/09/19 20:00 100.4 Mechanical Ventilator 30.00 04/09/19 19:00 107 04/09/19 19:00 107 34 162/56 (91) 97 Mechanical Ventilator 40.00 04/09/19 18:50 104 31 97 30 04/09/19 18:00 95.4 107 34 158/53 (88) 98 Mechanical Ventilator 40.00 04/09/19 17:00 97.4 101 31 138/50 (79) 98 Mechanical Ventilator 40.00 04/09/19 16:00 97.0 101 28 138/51 (80) 100 Mechanical Ventilator 40.00 04/09/19 16:00 Mechanical Ventilator 60 04/09/19 15:00 95.8 101 31 130/52 (78) 100 Mechanical Ventilator 40.00 04/09/19 14:12 101 33 98 30 04/09/19 14:00 95.4 101 31 136/53 (80) 100 Mechanical Ventilator 40.00 04/09/19 13:00 95.4 94 33 85/44 (58) 99 Mechanical Ventilator 40.00 04/09/19 13:00 94 04/09/19 12:00 Mechanical Ventilator 60 04/09/19 12:00 96.0 120 34 153/52 (85) 95 Mechanical Ventilator 40.00 04/09/19 11:37 121 32 94 30 04/09/19 11:00 97.4 101 35 184/67 (106) 100 Mechanical Ventilator 40.00 04/09/19 10:55 102 36 100 40 04/09/19 10:00 98.2 89 26 140/58 (85) 100 Mechanical Ventilator 40.00 04/09/19 09:15 Mechanical Ventilator 40.00 04/09/19 09:12 88 26 100 50 04/09/19 09:10 88 04/09/19 09:00 98.2 89 26 94/42 (59) 100 Mechanical Ventilator 50.00 04/09/19 08:00 Mechanical Ventilator 60 04/09/19 08:00 98.2 96 26 103/45 (64) 100 Mechanical Ventilator 50.00 04/09/19 07:00 101 04/09/19 07:00 98.4 103 22 135/54 (81) 96 Mechanical Ventilator 50.00 04/09/19 06:50 104 26 96 60 I & O 04/10/19 07:00 Intake Total 1320 ml Output Total 6685 ml Balance -5365 ml Height & Weight Height: 5'11.00" Weight: 300lbs. 4.0oz. 136.482428zw; BMI Method:Stated General Appearance: Obese, Other (ill appearing, intubated) HEENT: Other (pupils are equal but pinpoint) Neck: Other (central line in place) Respiratory: No Accessory Muscle Use, No Respiratory Distress Cardiovascular: Regular Rate, Rhythm, No Edema, No Murmur Capillary Refill: Greater Than 3 Seconds Gastrointestinal: soft Extremity: Normal Capillary Refill, No Pedal Edema Neurologic/Psychiatric: Other (sedated) Skin: Normal Color, Warm/Dry Results Lab Laboratory Tests 04/08/19 18:20 04/09/19 03:00 04/10/19 03:30 Assessment/Plan Assessment/Plan Acute respiratory failure with ARDS -Pa02/Fi02 = 162 -Continue vent -decrease Vt to 470 Increase RR to 24 PEEP10 -D/C propofol and see if pt will wake up -Propofol was d/c'd yesterday however turned back on secondary to BP and high RR. -S/p bronchoscopy Anoxic encephalopathy from CODE Blue -Check CT of head today -check ammonia level Pulmonary edema secondary to IVF -Continue Lasix 80mg daily Acute NSTEMI s/p code blue -S/p Cath with stenting to LAD -S/p Therapeutic hypothermia -Cardiology following Hypogylcemia/Hyperglycemia Leukocytosis -Weston cultures pending -zosyn Hypotension - resolved Hemoptysis - s/p bronchoscopy - No signs of active bleeding -Started prior to admission -Pt will need bronchoscopy once stable - plan for Tuesday -CTA is negative for PE Metabolic lactic acidosis -Bicarb gtt currently CAD NANCY FUENTES DO Apr 10, 2019 06:22
[2019-04-10] MEDS: FUROSEMIDE 40 MG/4 ML INJ (LASIX) IVP SCH (06:45)
[2019-04-10] MEDS ORDERED: FUROSEMIDE 40 MG/4 ML INJ (LASIX) IVP SCH (07:00)
[2019-04-10] MEDS: ASPIRIN 81 MG CHEW (CHILDREN'S ASA) PO SCH (07:49)
[2019-04-10] MEDS: CLOPIDOGREL 75 MG (PLAVIX) TABLET PO SCH (07:49)
[2019-04-10 07:53] LABS: ALANINE AMINOTRANSFERASE 50 U/L (0-55); ALBUMIN 2.6 GM/DL (3.2-4.5); ALKALINE PHOSPHATASE 67 U/L (40-136); AMMONIA 28 UMOL/L (11-32); BILIRUBIN,TOTAL 0.7 MG/DL (0.1-1.0); BUN/CREATININE RATIO 26; CALCIUM 8.2 MG/DL (8.5-10.1); CARBON DIOXIDE 23 MMOL/L (21-32); CHLORIDE 104 MMOL/L (98-107); CREATININE SERUM 0.76 MG/DL (0.60-1.30); GFR ESTIMATED > 60; GLUCOSE 89 MG/DL (70-105); POTASSIUM 4.7 MMOL/L (3.6-5.0); SODIUM 138 MMOL/L (135-145); TOTAL PROTEIN 5.6 GM/DL (6.4-8.2)
--- NOTE | 2019-04-10 07:56 | Physical Therapy Progress Note ---
Therapy Progress Note Patient is currently sedated on ventilator. PT will assess when medically stable and able to actively participate. KEEGAN CISNEROS PT Apr 10, 2019 07:56
--- NOTE | 2019-04-10 08:39 | Diagnostic Imaging Report ---
PROCEDURE: CT head with and without contrast. TECHNIQUE: Multiple contiguous axial images were obtained through the brain before and after the administration of intravenous contrast. Auto Exposure Controls were utilized during the CT exam to meet ALARA standards for radiation dose reduction. INDICATION: "Rule out bleed/stroke" FINDINGS: There is no intracranial hemorrhage. There are no abnormal extra-axial fluid collections. There is no hydrocephalus. No findings of focal or generalized cerebral edema. The basilar cisterns are patent. Following IV contrast, no abnormal parenchymal or meningeal enhancement is revealed. There is enhancement of the major dural venous sinuses. The orbits, paranasal sinuses, and calvarium are unremarkable. IMPRESSION: No hemorrhage, edema, mass, or acute appearing abnormality. Dictated by: Dictated on workstation # [id number]
--- NOTE | 2019-04-10 09:51 | Diagnostic Imaging Report ---
INDICATION: Shortness of air, mechanical ventilation, ICU care. Post code. TECHNIQUE: Single view chest at 3:55 AM. CORRELATION STUDY: 04/09/2019. FINDINGS: The endotracheal tube remains in place projected over the trachea with the tip below the clavicles. A gastric tube is present, not completely visualized. The left IJ central line is again seen with the tip projecting just superior to the level of the aortic arch. The heart size is enlarged and the mediastinum is stable. Continued vascular congestion but overall improved and diminished since the prior study. Bilateral pulmonary opacities, particularly in the mid and lower lung deal, persist but overall there is improved aeration through the lung deal. IMPRESSION: 1. There appears to be a likely stable appearance about the support lines and tubes. The left IJ central line tip projects just above the level of the aortic arch. The gastric tube position is not definitively visualized. 2. Pulmonary vascular congestion is present but overall appears improved. There is improvement in the overall aeration through the lung deal as well. Dictated by: Dictated on workstation # [id number]
--- NOTE | 2019-04-10 10:32 | Progress Note-Cardiology ---
Cardiology SOAP Progress Note Subjective: Intubated and sedated Objective: I&O/Vital Signs 04/10/19 04/10/19 04/10/19 04/10/19 07:00 07:00 07:27 07:34 Temp 98.9 Pulse 113 115 Resp 34 B/P (MAP) 165/63 (97) Pulse Ox 99 O2 Delivery Mechanical Ventilator Mechanical Ventilator O2 Flow Rate 30.00 FiO2 30 04/10/19 04/10/19 04/10/19 04/10/19 07:36 08:00 09:00 09:56 Pulse 115 117 110 112 Resp 35 35 31 31 B/P (MAP) 141/63 (89) 123/59 (80) Pulse Ox 99 99 99 100 O2 Delivery Mechanical Ventilator Mechanical Ventilator O2 Flow Rate 30.00 30.00 FiO2 30 30 04/10/19 04/10/19 04/10/19 04/10/19 10:00 11:00 11:04 12:00 Pulse 112 113 113 Resp 32 32 33 B/P (MAP) 156/70 (98) 151/65 (93) Pulse Ox 100 100 99 O2 Delivery Mechanical Ventilator Mechanical Ventilator Mechanical Ventilator O2 Flow Rate 30.00 30.00 FiO2 30 30 04/10/19 04/10/19 04/10/19 04/10/19 12:00 12:33 13:00 14:00 Pulse 92 96 102 108 Resp 29 28 31 B/P (MAP) 141/72 (95) 151/66 (94) 161/70 (100) Pulse Ox 100 100 100 O2 Delivery Mechanical Ventilator Mechanical Ventilator Mechanical Ventilator O2 Flow Rate 30.00 30.00 30.00 04/10/19 04/10/19 04/10/19 04/10/19 14:04 15:00 15:28 16:00 Pulse 109 117 117 Resp 35 39 38 B/P (MAP) 164/70 (101) Pulse Ox 100 99 98 O2 Delivery Mechanical Ventilator Mechanical Ventilator O2 Flow Rate 30.00 FiO2 30 30 30 04/10/19 04/10/19 04/10/19 04/10/19 16:00 17:00 17:12 18:00 Pulse 110 108 109 110 Resp 37 36 35 35 B/P (MAP) 130/57 (81) 138/60 (86) 154/65 (94) Pulse Ox 99 99 98 99 O2 Delivery Mechanical Ventilator Mechanical Ventilator Mechanical Ventilator O2 Flow Rate 30.00 30.00 30.00 FiO2 30 04/10/19 18:39 Pulse 105 Resp 34 Pulse Ox 100 FiO2 30 04/10/19 00:00 Intake Total 100 ml Output Total 3110 ml Balance -3010 ml Weight (Pounds): 300 Weight (Ounces): 4.0 Weight (Calculated Kilograms): 136.739847 Constitutional: other (intubated and being ventilated, unresponsive) Respiratory: other Cardiovascular: regular rate-rhythm, tachycardia, S1 and S2, systolic murmur (soft SERAFIN at card base) Gastrointestional: distended; No audible bowel sounds Extremities: swelling (mild edema); No clubbing, No cyanosis Neurologic/Psychiatric: other (unresponsive) Skin: No rash on exposed areas, No ulcerations on exposed areas Results/Procedures: Labs Laboratory Tests 04/09/19 21:30: Glucometer 56*L 04/10/19 00:32: Glucometer 72 04/10/19 03:30: White Blood Count 11.7H, Red Blood Count 4.22L, Hemoglobin 11.5L, Hematocrit 37L , Mean Corpuscular Volume 87, Mean Corpuscular Hemoglobin 27, Mean Corpuscular Hemoglobin Concent 31L, Red Cell Distribution Width 15.2H, Platelet Count 194, Mean Platelet Volume 9.4, Neutrophils (%) (Auto) 72, Lymphocytes (%) (Auto) 14, Monocytes (%) (Auto) 13H, Eosinophils (%) (Auto) 1, Basophils (%) (Auto) 0, Neutrophils # (Auto) 8.4H, Lymphocytes # (Auto) 1.7, Monocytes # (Auto) 1.5H, Eosinophils # (Auto) 0.1, Basophils # (Auto) 0.0, Prothrombin Time 14.3, INR Comment 1.1, Activated Partial Thromboplast Time 30, Blood Gas Puncture Site LEFT ARTLINE, Blood Gas Patient Temperature 98.8, Arterial Blood pH 7.47H, Arterial Blood Partial Pressure CO2 34L, Arterial Blood Partial Pressure O2 59L, Arterial Blood HCO3 24, Arterial Blood Total CO2 25.4, Arterial Blood Oxygen Saturation 91L, Arterial Blood Base Excess 1.1, Omid Test ARTLINE, Blood Gas Ventilator Setting YES, Blood Gas Inspired Oxygen 30%, Sodium Level 141, Po tassium Level 4.6, Chloride Level 107, Carbon Dioxide Level 23, Anion Gap 11, Blood Urea Nitrogen 21H, Creatinine 0.75, Estimat Glomerular Filtration Rate > 60, BUN/Creatinine Ratio 28, Glucose Level 78, Calcium Level 8.2L, Phosphorus Level 3.6, Magnesium Level 2.1 04/10/19 07:20: Sodium Level 138, Potassium Level 4.7, Chloride Level 104, Carbon Dioxide Level 23, Anion Gap 11, Blood Urea Nitrogen 20H, Creatinine 0.76, Estimat Glomerular Filtration Rate > 60, BUN/Creatinine Ratio 26, Glucose Level 89, Calcium Level 8.2L, Corrected Calcium 9.3, Total Bilirubin 0.7, Aspartate Amino Transf (AST/SGOT) 104H, Alanine Aminotransferase (ALT/SGPT) 50, Alkaline Phosphatase 67, Ammonia 28, Total Protein 5.6L, Albumin 2.6L 04/10/19 11:58: Glucometer 96 04/10/19 17:51: Glucometer 89 04/10/19 18:05: White Blood Count 10.6, Red Blood Count 4.22L, Hemoglobin 11.7L, Hematocrit 37L, Mean Corpuscular Volume 87, Mean Corpuscular Hemoglobin 28, Mean Corpuscular Hemoglobin Concent 32, Red Cell Distribution Width 15.4H, Platelet Count 205, Mean Platelet Volume 9.3, Neutrophils (%) (Auto) 69, Lymphocytes (%) (Auto) 15, Monocytes (%) (Auto) 15H, Eosinophils (%) (Auto) 2, Basophils (%) (Auto) 0, Ivonne trophils # (Auto) 7.3, Lymphocytes # (Auto) 1.6, Monocytes # (Auto) 1.6H, Eosin ophils # (Auto) 0.2, Basophils # (Auto) 0.0, Prothrombin Time 14.7, INR Comment 1.1, Activated Partial Thromboplast Time 35, Sodium Level 139, Potassium Level 4.6, Chloride Level 104, Carbon Dioxide Level 27, Anion Gap 8, Blood Urea Nitrogen 20H, Creatinine 0.76, Estimat Glomerular Filtration Rate > 60, BUN/Creatinine Ratio 26, Glucose Level 83, Calcium Level 8.3L, Phosphorus Level 4.1, Magnesium Level 1.8 Microbiology 04/05/19 Blood Culture - Final, Complete No growth 04/09/19 Mycobacterial Culture - Preliminary, Resulted 04/05/19 Urine Culture - Final, Complete NO GROWTH Laboratory Tests 04/09/19 03:00 04/10/19 03:30 04/10/19 07:20 04/10/19 18:05 Procedures NAME: BERNA SMALLWOOD [employer] REC#: [id number] PT STATUS: ADM IN : 12/05/1944 PHYSICIAN: MARY AGUILAR MD ADMIT DATE: 04/04/19/ICU Draft Date of Exam:04/10/19 CHEST 1 VIEW, AP/PA ONLY INDICATION: Shortness of air, mechanical ventilation, ICU care. Post code. TECHNIQUE: Single view chest at 3:55 AM. CORRELATION STUDY: 04/09/2019. FINDINGS: The endotracheal tube remains in place projected over the trachea with the tip below the clavicles. A gastric tube is present, not completely visualized. The left IJ central line is again seen with the tip projecting just superior to the level of the aortic arch. The heart size is enlarged and the mediastinum is stable. Continued vascular congestion but overall improved and diminished since the prior study. Bilateral pulmonary opacities, particularly in the mid and lower lung deal, persist but overall there is improved aeration through the lung deal. IMPRESSION: 1. There appears to be a likely stable appearance about the support lines and tubes. The left IJ central line tip projects just above the level of the aortic arch. The gastric tube position is not definitively visualized. 2. Pulmonary vascular congestion is present but overall appears improved. There is improvement in the overall aeration through the lung deal as well. Dictated on workstation # [id number] Dict: 04/10/19 0726 Trans: 04/10/19 0951 [id number] Interpreted by: AFSHIN ESQUIVEL DO Electronically signed by: NAME: BERNA SMALLWOOD [employer] REC#: [id number] PT STATUS: ADM IN : 12/05/1944 PHYSICIAN: NANCY FUENTES DO ADMIT DATE: 04/04/19/ICU Draft Date of Exam:04/10/19 CT HEAD W WO PROCEDURE: CT head with and without contrast. TECHNIQUE: Multiple contiguous axial images were obtained through the brain before and after the administration of intravenous contrast. Auto Exposure Controls were utilized during the CT exam to meet ALARA standards for radiation dose reduction. INDICATION: "Rule out bleed/stroke" FINDINGS: There is no intracranial hemorrhage. There are no abnormal extra-axial fluid collections. There is no hydrocephalus. No findings of focal or generalized cerebral edema. The basilar cisterns are patent. Following IV contrast, no abnormal parenchymal or meningeal enhancement is revealed. There is enhancement of the major dural venous sinuses. The orbits, paranasal sinuses, and calvarium are unremarkable. IMPRESSION: No hemorrhage, edema, mass, or acute appearing abnormality. Dictated on workstation # [id number] Dict: 04/10/19 0816 Trans: 04/10/19 0839 [id number] Interpreted by: SIMONE ANTHONY Electronically signed by: A/P: Assessment: Ac resp failure due to ARDS after cardiac arrest on 04/04/19 Bronchoscopy of 04/09/19 did not show any active bleeding Ac WV on 04/04/19 leading to VF cardiac arrest and cardiogenic shock and ARDS CAD. Emergency cath of 04/04/29 showed ostial/prox 80-90% and prox/mid 80-90% stenoses of the LAD; each stented with Alpine Xience 3.5 x 12 at 20 shad; other vessels showed diffuse mod disease Echo of 04/08/19: LVEF 45%, mild concentric LVH, aortic valve area 2 sq cm (very mild ), RVSP 18 mmHg Brief runs of NSVT and AIVR, currently stable Plan: * D/t pulm edema due to vol overload and ac systolic CHF diuretics are being given - continue * Resume ASA and continue Plavix, given no active bleeding seen on bronchoscopy * BP has improved - give BB IV * LUCIANA-inhib/ARB not mandatory because EF is greater than 50% * Monitor labs * Prognosis guarded * DNR Physician Assessment Physician Assessment [facility] Lungs: good bilat air entry Cor: reg Ext: no c/c/; mod gen edema A&R * As documented in our note above that I updated (italics) and as noted below * Prognosis guarded * Dr Dimas covering Card Svce beginning tomorrow KAREY REVELES BUSINESS INTELLIGENCE CONSULTANT Apr 10, 2019 10:32 VIJAY SOLORZANO MD FACP [facility] Apr 10, 2019 18:52
[2019-04-10] MEDS: DEXMEDETOMIDINE INJECTION 1,000 MCG in NS (IVPB) 250 ML IV SCH (10:38)
--- NOTE | 2019-04-10 11:00 | NUR ---
Pastoral care visit w/pts and other family, offered support and prayer
--- NOTE | 2019-04-10 11:28 | Occ Therapy Progress Note ---
Therapy Progress Note Pt. currently sedated and on ventilation. Will continue to monitor for skilled treatment. [id number] TIFFANY MCCALL OT Apr 10, 2019 11:28
[2019-04-10] MEDS: meTOprolol 5 MG/5 ML (LOPRESSOR) VIAL IV SCH ×2 (12:05→17:58)
--- NOTE | 2019-04-10 12:08 | NUR ---
Wasted 120mL of Fentanyl with JENNIFER Pavon.
--- NOTE | 2019-04-10 14:40 | NUR ---
Dr. Penny present at bedside. Gave order to restart Precedex and Propofol. Dr. Penny decreased peep from 10 to 8.
--- NOTE | 2019-04-10 15:44 | Progress Note-Hospitalist ---
Progress Note Progress Notes/Assess & Plan Date Seen 04/10/19 Time Seen by Provider: 15:40 Assessment & Plan The patient has shown no evidence of higher function after coming off sedation and hypothermia. It is apparently planned to terminally extubate him tomorrow. Physical exam: He does not respond to my voice or touch. He is exhibiting tachypnea and tachycardia. His abdomen is moving in a discoordinated pattern as compared to respirations. Impression: 1.myocardial infarction. 2.witnessed ventricular fibrillation. 3.successful denominational of rhythm and angiographic's stenting of coronary artery occlusion. 4.apparent global intracranial hypoxia Focused Exam Lactate Level 04/08/19 10:48: Lactic Acid Level 1.30 PRATIK LOWRY MD Apr 10, 2019 15:44
[2019-04-10 18:19] LABS: BASOPHILS % (AUTO) 0 % (0-10); EOSINOPHILS # (AUTO) 0.2 10^3/uL (0.0-0.3); EOSINOPHILS % (AUTO) 2 % (0-10); HEMATOCRIT 37 % (40-54); HEMOGLOBIN 11.7 G/DL (13.3-17.7); LYMPHOCYTES # (AUTO) 1.6 X 10^3 (1.0-4.0); LYMPHOCYTES % (AUTO) 15 % (12-44); MEAN CORPUSCULAR HEMOGLOBIN 28 PG (25-34); MEAN CORPUSCULAR HGB CONC 32 G/DL (32-36); MEAN CORPUSCULAR VOLUME 87 FL (80-99); MEAN PLATELET VOLUME 9.3 FL (7.4-10.4); MONOCYTES # (AUTO) 1.6 X 10^3 (0.0-1.0); MONOCYTES % (AUTO) 15 % (0-12); NEUTROPHILS # (AUTO) 7.3 X 10^3 (1.8-7.8); NEUTROPHILS % (AUTO) 69 % (42-75); PLATELET COUNT 205 10^3/uL (130-400); RED CELL DISTRIBUTION WIDTH 15.4 % (10.0-14.5); WHITE BLOOD COUNT 10.6 10^3/uL (4.3-11.0)
[2019-04-10 18:35] LABS: INR 1.1 (0.8-1.4); PROTHROMBIN TIME PATIENT 14.7 SEC (12.2-14.7)
[2019-04-10 18:36] LABS: BUN/CREATININE RATIO 26; CALCIUM 8.3 MG/DL (8.5-10.1); CARBON DIOXIDE 27 MMOL/L (21-32); CHLORIDE 104 MMOL/L (98-107); CREATININE SERUM 0.76 MG/DL (0.60-1.30); GFR ESTIMATED > 60; GLUCOSE 83 MG/DL (70-105); MAGNESIUM 1.8 MG/DL (1.8-2.4); PHOSPHORUS 4.1 MG/DL (2.3-4.7); POTASSIUM 4.6 MMOL/L (3.6-5.0); SODIUM 139 MMOL/L (135-145)
[2019-04-10] MEDS ORDERED: NS IV 1000 ML 1,000 ML ONE (22:16)
[2019-04-11] VITALS (23 sets, daily range): BP systolic 77–161; BP diastolic 39–79
[2019-04-11] MEDS: meTOprolol 5 MG/5 ML (LOPRESSOR) VIAL IV SCH ×4 (00:07→18:19)
[2019-04-11] MEDS: inSUlin ASPART (NovoLOG) 1 UNIT/0.01 ML (CHARGE PER UNIT) SC SCH ×4 (00:07→18:19)
[2019-04-11] MEDS: DEXMEDETOMIDINE INJECTION 1,000 MCG in NS (IVPB) 250 ML IV SCH ×2 (00:49→13:41)
[2019-04-11] MEDS: RT-ALBUTEROL/IPRATROPIUM 3 ML (DUONEB) VIAL INH SCH ×4 (02:27→13:52)
[2019-04-11] MEDS: PROPOFOL DRIP (ICU) 100 ML IV SCH ×2 (02:53→13:42)
[2019-04-11 03:26] LABS: ABG BASE EXCESS 0.2 MMOL/L (-2.5-2.5); ABG OXYGEN SATURATION 91 % (94-100); ABG PCO2 32 MMHG (35-45); ABG PH 7.48 (7.37-7.43); ABG PO2 57 MMHG (79-93); ABG TCO2 24.4 MMOL/L (21.0-31.0)
[2019-04-11 03:28] LABS: BASOPHILS % (AUTO) 0 % (0-10); EOSINOPHILS # (AUTO) 0.2 10^3/uL (0.0-0.3); EOSINOPHILS % (AUTO) 2 % (0-10); HEMATOCRIT 34 % (40-54); HEMOGLOBIN 10.7 G/DL (13.3-17.7); LYMPHOCYTES # (AUTO) 1.9 X 10^3 (1.0-4.0); LYMPHOCYTES % (AUTO) 21 % (12-44); MEAN CORPUSCULAR HEMOGLOBIN 27 PG (25-34); MEAN CORPUSCULAR HGB CONC 31 G/DL (32-36); MEAN CORPUSCULAR VOLUME 87 FL (80-99); MONOCYTES # (AUTO) 1.5 X 10^3 (0.0-1.0); MONOCYTES % (AUTO) 17 % (0-12); NEUTROPHILS # (AUTO) 5.5 X 10^3 (1.8-7.8); NEUTROPHILS % (AUTO) 60 % (42-75); PLATELET COUNT 196 10^3/uL (130-400); RED CELL DISTRIBUTION WIDTH 15.6 % (10.0-14.5); WHITE BLOOD COUNT 9.1 10^3/uL (4.3-11.0)
[2019-04-11 03:29] LABS: ALLENS TEST ARTLINE; INSPIRED O2 30%; PATIENT TEMP 98.3; VENTILATOR YES
[2019-04-11 03:36] LABS: INR 1.1 (0.8-1.4); PROTHROMBIN TIME PATIENT 14.9 SEC (12.2-14.7)
[2019-04-11 03:41] LABS: BUN/CREATININE RATIO 30; CARBON DIOXIDE 20 MMOL/L (21-32); CHLORIDE 107 MMOL/L (98-107); CREATININE SERUM 0.79 MG/DL (0.60-1.30); GFR ESTIMATED > 60; GLUCOSE 95 MG/DL (70-105); PHOSPHORUS 4.3 MG/DL (2.3-4.7); POTASSIUM 4.5 MMOL/L (3.6-5.0); SODIUM 138 MMOL/L (135-145)
[2019-04-11] MEDS: MAGNESIUM 1 GM/100 ML IVPB 100 ML IV SCH (05:28)
[2019-04-11] MEDS: POTASSIUM CL 10MEQ/50ML IVPB 50 ML IV SCH (05:28)
[2019-04-11] MEDS: KCL 20 MEQ TAB (K-DUR) PO SCH (05:28)
[2019-04-11] MEDS: PIPERACILLIN/TAZO 4.5 GM/NS 100 ML IV SCH ×2 (05:39)
--- NOTE | 2019-04-11 05:43 | Pulmonary Progress Note ---
Subjective Time Seen by a Provider: 06:47 Subjective/Events-last exam Pt is currently off all sedation and RR is around 35 with accessory muscle use. Family at bedside. Pt is not following any commands and has no purposeful movements. Sepsis Event Evaluation Height, Weight, BMI Height: 5'11.00" Weight: 300lbs. 4.0oz. 136.488047rp; BMI Method:Stated Focused Exam Lactate Level 04/08/19 10:48: Lactic Acid Level 1.30 Exam Exam Vital Signs Date Time Temp Pulse Resp B/P (MAP) Pulse Ox O2 Delivery O2 Flow Rate FiO2 04/11/19 04:40 89 33 97 30 04/11/19 04:00 Mechanical Ventilator 30 04/11/19 04:00 98.3 04/11/19 03:00 84 29 95/58 (70) 94 Mechanical Ventilator 30.00 04/11/19 02:53 85 95/44 04/11/19 02:28 96 30 83 30 04/11/19 02:00 87 32 90/40 (57) 96 Mechanical Ventilator 30.00 04/11/19 01:00 88 04/11/19 01:00 88 32 101/43 (62) 97 Mechanical Ventilator 30.00 04/11/19 00:19 90 30 96 30 04/11/19 00:00 93 31 93/41 (58) 96 Mechanical Ventilator 30.00 04/11/19 00:00 Mechanical Ventilator 30 04/11/19 00:00 98.7 04/10/19 23:00 98 34 92/45 (61) 96 Mechanical Ventilator 30.00 04/10/19 22:10 101 26 113/52 (72) 96 Mechanical Ventilator 30.00 04/10/19 22:05 100 31 96 30 04/10/19 21:00 108 34 150/64 (92) 99 Mechanical Ventilator 30.00 04/10/19 20:00 Mechanical Ventilator 30 04/10/19 20:00 107 35 154/67 (96) 97 Mechanical Ventilator 30.00 04/10/19 19:38 107 150/65 04/10/19 19:00 104 36 152/66 (94) 98 Mechanical Ventilator 30.00 04/10/19 19:00 104 04/10/19 18:39 105 34 100 30 04/10/19 18:00 110 35 154/65 (94) 99 Mechanical Ventilator 30.00 04/10/19 17:12 109 35 98 30 04/10/19 17:00 108 36 138/60 (86) 99 Mechanical Ventilator 30.00 04/10/19 16:00 110 37 130/57 (81) 99 Mechanical Ventilator 30.00 04/10/19 16:00 Mechanical Ventilator 30 04/10/19 15:28 117 38 98 30 04/10/19 15:00 117 39 164/70 (101) 99 Mechanical Ventilator 30.00 04/10/19 14:04 109 35 100 30 04/10/19 14:00 108 31 161/70 (100) 100 Mechanical Ventilator 30.00 04/10/19 13:00 102 28 151/66 (94) 100 Mechanical Ventilator 30.00 04/10/19 12:33 96 04/10/19 12:00 92 29 141/72 (95) 100 Mechanical Ventilator 30.00 04/10/19 12:00 Mechanical Ventilator 30 04/10/19 11:04 113 33 99 30 04/10/19 11:00 113 32 151/65 (93) 100 Mechanical Ventilator 30.00 04/10/19 10:00 112 32 156/70 (98) 100 Mechanical Ventilator 30.00 04/10/19 09:56 112 31 100 30 04/10/19 09:00 110 31 123/59 (80) 99 Mechanical Ventilator 30.00 04/10/19 08:00 117 35 141/63 (89) 99 Mechanical Ventilator 30.00 04/10/19 07:36 115 35 99 30 04/10/19 07:34 98.9 04/10/19 07:27 Mechanical Ventilator 30 04/10/19 07:00 115 04/10/19 07:00 113 34 165/63 (97) 99 Mechanical Ventilator 30.00 04/10/19 06:00 109 31 139/54 (82) 99 Mechanical Ventilator 30.00 I & O 04/11/19 07:00 Intake Total 120 ml Output Total 5925 ml Balance -5805 ml Height & Weight Height: 5'11.00" Weight: 300lbs. 4.0oz. 136.679232ox; BMI Method:Stated General Appearance: WD/WN, Moderate Distress, Other (sedated on vent) HEENT: PERRL/EOMI (equal and [place]. ), Moist Mucous Membranes Neck: Normal Inspection Respiratory: Decreased Breath Sounds Cardiovascular: Regular Rate, Rhythm, No Edema, No Murmur Capillary Refill: Greater Than 3 Seconds Gastrointestinal: soft Extremity: Normal Inspection, No Calf Tenderness, Pedal Edema Neurologic/Psychiatric: Other (sedated on vent ) Skin: Normal Color, Warm/Dry Results Lab Laboratory Tests 04/10/19 03:30 04/10/19 07:20 04/10/19 18:05 04/11/19 03:15 Assessment/Plan Assessment/Plan Acute respiratory failure with ARDS -Pa02/Fi02 = 190 -Continue vent -D/C propofol and see if pt will wake up -S/p bronchoscopy Severe anoxic encephalopathy from CODE Blue -Pt does not follow any commands and does not have any purposeful movements when sedation is off. -Pt does breath above vent at a rr of 35 when sedation is turned off CT of head is negative - ammonia level normal Pulmonary edema secondary to IVF -Continue Lasix 80mg daily Acute NSTEMI s/p code blue -S/p Cath with stenting to LAD -S/p Therapeutic hypothermia -Cardiology following Hypogylcemia/Hyperglycemia Leukocytosis -Weston cultures pending -zosyn Hypotension - resolved Hemoptysis - s/p bronchoscopy - No signs of active bleeding -Started prior to admission -Pt will need bronchoscopy once stable - plan for Tuesday morning -CTA is negative for PE Metabolic lactic acidosis -Bicarb gtt currently CAD I explained to family patient's current condition and poor prognosis. All questions were answered Critical Care: Critically Ill Patient Time spent with patient (mins): 60 NANCY FUENTES DO Apr 11, 2019 05:43
[2019-04-11] MEDS ORDERED: morphine INJ 4 MG/ML 1 ML (VIAL/SYRINGE) ONE (06:33)
[2019-04-11] MEDS: FUROSEMIDE 40 MG/4 ML INJ (LASIX) IVP SCH (06:41)
--- NOTE | 2019-04-11 06:46 | Pulmonary Progress Note ---
Sepsis Event Evaluation Height, Weight, BMI Height: 5'11.00" Weight: 290lbs. 5.0oz. 131.154510rh; BMI Method:Stated Focused Exam Lactate Level 04/08/19 10:48: Lactic Acid Level 1.30 Exam Exam Vital Signs Date Time Temp Pulse Resp B/P (MAP) Pulse Ox O2 Delivery O2 Flow Rate FiO2 04/11/19 04:40 89 33 97 30 04/11/19 04:00 Mechanical Ventilator 30 04/11/19 04:00 98.3 04/11/19 03:00 84 29 95/58 (70) 94 Mechanical Ventilator 30.00 04/11/19 02:53 85 95/44 04/11/19 02:28 96 30 83 30 04/11/19 02:00 87 32 90/40 (57) 96 Mechanical Ventilator 30.00 04/11/19 01:00 88 04/11/19 01:00 88 32 101/43 (62) 97 Mechanical Ventilator 30.00 04/11/19 00:19 90 30 96 30 04/11/19 00:00 93 31 93/41 (58) 96 Mechanical Ventilator 30.00 04/11/19 00:00 Mechanical Ventilator 30 04/11/19 00:00 98.7 04/10/19 23:00 98 34 92/45 (61) 96 Mechanical Ventilator 30.00 04/10/19 22:10 101 26 113/52 (72) 96 Mechanical Ventilator 30.00 04/10/19 22:05 100 31 96 30 04/10/19 21:00 108 34 150/64 (92) 99 Mechanical Ventilator 30.00 04/10/19 20:00 Mechanical Ventilator 30 04/10/19 20:00 107 35 154/67 (96) 97 Mechanical Ventilator 30.00 04/10/19 19:38 107 150/65 04/10/19 19:00 104 36 152/66 (94) 98 Mechanical Ventilator 30.00 04/10/19 19:00 104 04/10/19 18:39 105 34 100 30 04/10/19 18:00 110 35 154/65 (94) 99 Mechanical Ventilator 30.00 04/10/19 17:12 109 35 98 30 04/10/19 17:00 108 36 138/60 (86) 99 Mechanical Ventilator 30.00 04/10/19 16:00 110 37 130/57 (81) 99 Mechanical Ventilator 30.00 04/10/19 16:00 Mechanical Ventilator 30 04/10/19 15:28 117 38 98 30 04/10/19 15:00 117 39 164/70 (101) 99 Mechanical Ventilator 30.00 04/10/19 14:04 109 35 100 30 04/10/19 14:00 108 31 161/70 (100) 100 Mechanical Ventilator 30.00 04/10/19 13:00 102 28 151/66 (94) 100 Mechanical Ventilator 30.00 04/10/19 12:33 96 04/10/19 12:00 92 29 141/72 (95) 100 Mechanical Ventilator 30.00 04/10/19 12:00 Mechanical Ventilator 30 04/10/19 11:04 113 33 99 30 04/10/19 11:00 113 32 151/65 (93) 100 Mechanical Ventilator 30.00 04/10/19 10:00 112 32 156/70 (98) 100 Mechanical Ventilator 30.00 04/10/19 09:56 112 31 100 30 04/10/19 09:00 110 31 123/59 (80) 99 Mechanical Ventilator 30.00 04/10/19 08:00 117 35 141/63 (89) 99 Mechanical Ventilator 30.00 04/10/19 07:36 115 35 99 30 04/10/19 07:34 98.9 04/10/19 07:27 Mechanical Ventilator 30 04/10/19 07:00 115 04/10/19 07:00 113 34 165/63 (97) 99 Mechanical Ventilator 30.00 I & O 04/11/19 07:00 Intake Total 120 ml Output Total 6275 ml Balance -6155 ml Height & Weight Height: 5'11.00" Weight: 290lbs. 5.0oz. 131.879137by; BMI Method:Stated General Appearance: WD/WN, Moderate Distress, Other (sedated on vent) HEENT: PERRL/EOMI, Moist Mucous Membranes Neck: Normal Inspection Respiratory: Decreased Breath Sounds Cardiovascular: Regular Rate, Rhythm, No Edema, No Murmur Capillary Refill: Greater Than 3 Seconds Gastrointestinal: soft Extremity: Normal Inspection, No Calf Tenderness, Pedal Edema Neurologic/Psychiatric: Other (sedated on vent ) Skin: Normal Color, Warm/Dry Results Lab Laboratory Tests 04/10/19 03:30 04/10/19 07:20 04/10/19 18:05 04/11/19 03:15 Assessment/Plan Assessment/Plan Acute respiratory failure with ARDS -Pa02/Fi02 = 190 -Continue vent -Vt to 470 Increase RR to 24 PEEP10 -D/C propofol and see if pt will wake up -S/p bronchoscopy Anoxic encephalopathy from CODE Blue -Check CT of head today -check ammonia level Pulmonary edema secondary to IVF -Continue Lasix 80mg daily Acute NSTEMI s/p code blue -S/p Cath with stenting to LAD -S/p Therapeutic hypothermia -Cardiology following Hypogylcemia/Hyperglycemia Leukocytosis -[place] cultures pending -zosyn Hypotension - resolved Hemoptysis - s/p bronchoscopy - No signs of active bleeding -Started prior to admission -Pt will need bronchoscopy once stable - plan for Tuesday morning -CTA is negative for PE Metabolic lactic acidosis -Bicarb gtt currently CAD NANCY FUENTES DO Apr 11, 2019 06:46
--- NOTE | 2019-04-11 06:53 | NUR ---
DR FUENTES AT BEDSIDE, LAQSIX SCHEDULED FOR 0900 GIVEN NOW AND MORPHINE 2 MG PER ORDERS FROM DR FUENTES. SEDATION TURNED ON AT THIS TIME
--- NOTE | 2019-04-11 08:30 | NUR ---
Dr. Penny notified of BP 80s/30s, no new orders
[2019-04-11] MEDS: CLOPIDOGREL 75 MG (PLAVIX) TABLET PO SCH (08:39)
[2019-04-11] MEDS: ASPIRIN 81 MG CHEW (CHILDREN'S ASA) PO SCH (08:39)
[2019-04-11] MEDS: METOCLOPRAMIDE INJ 10 MG/2 ML (REGLAN) IVP SCH ×2 (08:39→21:03)
--- NOTE | 2019-04-11 09:14 | Diagnostic Imaging Report ---
INDICATION: Respiratory distress. COMPARISON: 04/10/2019. FINDINGS: The ET tube is in the mid to lower thoracic trachea. The heart size is upper limits but stable. Prominence of the central vascularity is unchanged. The perihilar opacities have decreased which likely reflects a reduction in edema; however, decreased pneumonia could not be excluded. There are likely small pleural effusions, probably slightly decreased as well. IMPRESSION: Stable support apparatus. Mild improvement in pleural/parenchymal opacities with no pneumothorax and no adverse development. Dictated by: Dictated on workstation # [id number]
--- NOTE | 2019-04-11 10:46 | Physical Therapy Progress Note ---
Therapy Progress Note Patient still on vent. Nurse does not expect him to come off vent today. Will check on patient tomorrow. IDA BRYANT PT Apr 11, 2019 10:46
--- NOTE | 2019-04-11 10:50 | Progress Note-Hospitalist ---
Subjective HPI/CC On Admission Date Seen by Provider: Apr 11, 2019 Time Seen by Provider: 10:00 Pt is a 74yoCM who presented to the ER due to chest pain. History is obtained only through the records because he is intubated. Reportedly he had been having chest pain on and off and putting it off because it got better on it's own. He was found to have a mildly elevated troponin and d-dimer so went to CT for CTA to rule out PE or dissection. CTA chest was negative and shortly upon return to the ER he was noticed to be gurgling and in v-fib arrest. ACLS protocol was initiated in the ER and he was shocked x1 with conversion to PEA. He received epi pushes x1 and CPR and ultimately had ROSC. Decision was made to take to emergent outside laborer and initiate arctic sun therapy as he was unable to follow commands. He was intubated in the ER and central line was placed. I was later able to talk to the who states that he has been having chest pain and dyspnea with exertion that resolved with rest. He had been to see his Primary c are provider a couple of times over the last month for a cough and SOB. He was treated with inhalers, steroids, and antibiotics without improvement. He had worsening pain today and his decided to bring him to the ER. Subjective/Events-last exam Pt remains intubated No purposeful movements noted when he was further evaluated so he may have had some sort of brain injury Will monitor closely Objective Exam Vital Signs Vital Signs Date Time Temp Pulse Resp B/P (MAP) Pulse Ox O2 Delivery O2 Flow Rate FiO2 04/11/19 18:00 101 36 89/51 (64) 89 Room Air 04/11/19 16:01 97.3 04/11/19 16:00 30 Capillary Refill : Greater Than 3 Seconds General Appearance: No Apparent Distress, WD/WN, Other (sedated on vent) HEENT: PERRL/EOMI (equal and [place]. ), Moist Mucous Membranes Neck: Normal Inspection Respiratory: Decreased Breath Sounds Cardiovascular: Regular Rate, Rhythm, No Edema, No Murmur Gastrointestinal: Normal Bowel Sounds, Non Tender, Soft Genital/Rectal: Other (gaming in place with clear yellow urine) Extremity: Normal Inspection, No Calf Tenderness, Pedal Edema Neurologic/Psychiatric: Other (sedated on vent ) Skin: Normal Color, Warm/Dry Results/Procedures Lab Laboratory Tests 04/11/19 03:15 Patient resulted labs reviewed. Imaging: Reviewed Imaging Report Assessment/Plan Assessment and Plan Assess & Plan/Chief Complaint Assessment: s/p cardiac arrest VDRF Anoxic brain injury? Plan: Monitor closely Prognosis guarde Critical Care Critically Ill Patient Diagnosis/Problems Diagnosis/Problems (1) Cardiac arrest with ventricular fibrillation (2) Shock (3) Metabolic acidosis (4) Acute respiratory failure Qualifiers: Respiratory failure complication: hypercapnia Qualified Codes: J96.02 - Acute respiratory failure with hypercapnia (5) CAD (coronary artery disease) Qualifiers: Coronary Disease-Associated Artery/Lesion type: [place] artery [place] vs. transplanted heart: [place] heart Associated angina: with stable angina Qualified Codes: I25.118 - Atherosclerotic heart disease of [place] coronary artery with other forms of angina pectoris (6) Hyperglycemia (7) Leukocytosis Qualifiers: Leukocytosis type: unspecified Qualified Codes: D72.829 - Elevated white blood cell count, unspecified (8) Shock liver (9) Myocardial infarction Qualifiers: Myocardial infarction type: non-ST elevation myocardial infarction Qualified Codes: I21.4 - Non-ST elevation (NSTEMI) myocardial infarction (10) Nonsustained ventricular tachycardia CATHERINE WARD DO Apr 11, 2019 10:50
[2019-04-11] MEDS ORDERED: LORazepam INJ 2 MG/ML (ATIVAN) VIAL IVP NR (15:00)
--- NOTE | 2019-04-11 16:00 | NUR ---
Spoke with et children. All in agreement to plan for extubation around [address] Penny aware of plan.
--- NOTE | 2019-04-11 17:15 | NUR ---
Lt radial art line DC'd et CVP monitoring disconnected.
--- NOTE | 2019-04-11 17:25 | NUR ---
Family ready for extubation. RT Blanquita at bedside et pt extubated et OG removed simutaneously. Restraints removed. IV fluids stopped. Family brought from waiting room to bedside with train attendant accompanying
[2019-04-11] MEDS: LORazepam INJ 2 MG/ML (ATIVAN) VIAL IVP PRN ×4 (17:35→22:01)
[2019-04-11] MEDS: morphine INJ 4 MG/ML 1 ML (VIAL/SYRINGE) IVP PRN ×3 (17:36→18:48)
--- NOTE | 2019-04-11 19:50 | NUR ---
To room 425 via bed accompanied by rn's x 2. Pt unresponsive and on comfort care at this time. Several family members present. Will continue to monitor.
[2019-04-11] MEDS ORDERED: GLYCOPYRROLATE 0.2 MG/ML (ROBINUL) 2 ML VIAL IV PRN (20:00)
--- NOTE | 2019-04-11 20:06 | NUR ---
1944--Pt to rm 425 Beside report and care given to JENNIFER Huber Family informed, remains at bedside
--- NOTE | 2019-04-11 23:04 | Cardiology Progress Note ---
Cardiology SOAP Progress Note Subjective: No significant complaints. Objective: I&O/Vital Signs 04/12/19 00:00 Intake Total 1060 ml Output Total 975 ml Balance 85 ml Weight (Pounds): 290 Weight (Ounces): 5.0 Weight (Calculated Kilograms): 131.094458 Constitutional: other Respiratory: chest is bilaterally symmetric, lungs clear to auscultation Cardiovascular: regular rate-rhythm, tachycardia, S1 and S2, systolic murmur (soft SERAFIN at card base) Gastrointestional: distended; No audible bowel sounds Extremities: swelling (mild edema); No clubbing, No cyanosis Neurologic/Psychiatric: alert, other Skin: No rash on exposed areas, No ulcerations on exposed areas Results/Procedures: Labs Microbiology 04/05/19 Blood Culture - Final, Complete No growth 04/09/19 Mycobacterial Culture - Preliminary, Resulted 04/05/19 Urine Culture - Final, Complete NO GROWTH A/P: Assessment/Dx: Ac resp failure due to ARDS after cardiac arrest on 04/04/19 Bronchoscopy of 04/09/19 did not show any active bleeding Ac MN on 04/04/19 leading to VF cardiac arrest and cardiogenic shock and ARDS CAD. Emergency cath of 04/04/29 showed ostial/prox 80-90% and prox/mid 80-90% stenoses of the LAD; each stented with Alpine Xience 3.5 x 12 at 20 shad; other vessels showed diffuse mod disease Echo of 04/08/19: LVEF 45%, mild concentric LVH, aortic valve area 2 sq cm (very mild ), RVSP 18 mmHg Brief runs of NSVT and AIVR, currently stable Plan: Significant improvement. Extubated. Continue optimal medical therapy for CAD. Discharge to follow with outpatient choir teacher. Thank you for your consultation. Please call me if you have any questions. Carlos Dimas MD, FACP, FACC, FSCAI, FHRS, CCDS Interventional Cardiology Cardiac Electrophysiology Vascular Medicine and Endovascular Interventions Scooter DIMAS MD Apr 11, 2019 23:04
--- NOTE | 2019-04-11 23:57 | NUR ---
Respirations ceased at 2257 as also verified by JENNIFER Arreola. and son at bedside. Family denies need for pastoral care at this time stating that Pastoral care had been with them prior to transferring to room 425.
--- NOTE | 2019-04-12 01:23 | NUR ---
[employer] notified to receive body.
--- NOTE | 2019-04-12 01:50 | NUR ---
Photogrammetric Technician here for [employer] to receive body.
--- NOTE | 2019-04-12 08:35 | Discharge Summary-Hospitalist ---
Diagnosis/Chief Complaint Date of Admission Apr 04, 2019 at 21:10 Date of Discharge Apr 11, 2019 at 22:57 Admission Diagnosis V-fib arrest Discharge Diagnosis (1) Cardiac arrest with ventricular fibrillation Status: Acute (2) Shock Status: Acute (3) Metabolic acidosis Status: Acute (4) Acute respiratory failure Status: Acute (5) CAD (coronary artery disease) Status: Acute (6) Hyperglycemia Status: Acute (7) Leukocytosis Status: Acute (8) Shock liver Status: Acute (9) Myocardial infarction Status: Acute (10) Nonsustained ventricular tachycardia Status: Acute Discharge Summary Discharge Physical Exam Allergies: Coded Allergies: No Known Drug Allergies (Unverified , 08/18/18) Vitals & I&Os Vital Signs Date Time Temp Pulse Resp B/P (MAP) Pulse Ox O2 Delivery O2 Flow Rate FiO2 04/11/19 20:00 Room Air 04/11/19 19:00 124 04/11/19 18:00 36 89/51 (64) 89 04/11/19 16:01 97.3 General Appearance: Other () Hospital Course Was the Problem List Reviewed?: Yes Hospital course: patient was admitted from ER after intubation for V-fib cardiogenic shock and after code blue in ER he was taken to ICU and placed in hypothermic unit per shock s/p cardiac arrest protocol. Cath was performed with stents deployed and patient remained stable but after a lengthy ICU course and multiple treatments by multiple specialties he was extubated and no return of neurological function returned and he . Labs (last 24 hrs) Microbiology 04/05/19 Blood Culture - Final, Complete No growth 04/09/19 Mycobacterial Culture - Preliminary, Resulted 04/05/19 Urine Culture - Final, Complete NO GROWTH Patient resulted labs reviewed. Imaging: Reviewed Imaging Report Discussion & Recommendations Discharge Planning: <30 minutes discharge planning Discharge Home Medications: Active Scripts Active [place] 5-325 Tablet (Hydrocodone/Acetaminophen) 1 Each Tablet 1 Each PO Q6H PRN MDD 10 Instructions to patient/family Please see electronic discharge instructions given to patient. Problem Qualifiers (1) Acute respiratory failure: Respiratory failure complication: hypercapnia Qualified Codes: J96.02 - Acute respiratory failure with hypercapnia (2) CAD (coronary artery disease): Coronary Disease-Associated Artery/Lesion type: [place] artery [place] vs. transplanted heart: [place] heart Associated angina: with stable angina Qualified Codes: I25.118 - Atherosclerotic heart disease of [place] coronary artery with other forms of angina pectoris (3) Leukocytosis: Leukocytosis type: unspecified Qualified Codes: D72.829 - Elevated white blood cell count, unspecified (4) Myocardial infarction: Myocardial infarction type: non-ST elevation myocardial infarction Qualified Codes: I21.4 - Non-ST elevation (NSTEMI) myocardial infarction CATHERINE WARD DO Apr 12, 2019 08:35
== END 2019-04-11 22:57 | disposition expired | DRG 246 ==
LOC: EDUNIT# 16:35 → ER 16:36 → EDBD 16:36 → CATH 19:47 → ICU 21:10 → 4TH 04-11 19:45
PROVIDERS: ADMIT Family Medicine; ATTEND Family Medicine
PROC: 027035Z Dilation of Coronary Artery, One Artery with Two Drug-eluting Intraluminal Devices, Percutaneous Approach (ICD-10-PCS; principal; 2019-04-04)
PROC: B2111ZZ Fluoroscopy of Multiple Coronary Arteries using Low Osmolar Contrast (ICD-10-PCS; 2019-04-04)
PROC: 5A1955Z Respiratory Ventilation, Greater than 96 Consecutive Hours (ICD-10-PCS; 2019-04-04)
PROC: 0BH17EZ Insertion of Endotracheal Airway into Trachea, Via Natural or Artificial Opening (ICD-10-PCS; 2019-04-04)
PROC: 0B9D8ZX Drainage of Right Middle Lung Lobe, Via Natural or Artificial Opening Endoscopic, Diagnostic (ICD-10-PCS; 2019-04-09)
PROC: 0B938ZX Drainage of Right Main Bronchus, Via Natural or Artificial Opening Endoscopic, Diagnostic (ICD-10-PCS; 2019-04-09)
PROC: 0B978ZX Drainage of Left Main Bronchus, Via Natural or Artificial Opening Endoscopic, Diagnostic (ICD-10-PCS; 2019-04-09)
DX: I21.4 Non-ST elevation (NSTEMI) myocardial infarction (principal); I49.01 Ventricular fibrillation; J80 Acute respiratory distress syndrome; I46.9 Cardiac arrest, cause unspecified; R57.0 Cardiogenic shock; G93.1 Anoxic brain damage, not elsewhere classified; K72.00 Acute and subacute hepatic failure without coma; E87.2 Acidosis; Z66 Do not resuscitate; I50.21 Acute systolic (congestive) heart failure; I11.0 Hypertensive heart disease with heart failure; I25.118 Atherosclerotic heart disease of native coronary artery with other forms of angina pectoris; R04.2 Hemoptysis; E87.1 Hypo-osmolality and hyponatremia; I47.2 Ventricular tachycardia; I35.0 Nonrheumatic aortic (valve) stenosis; R73.9 Hyperglycemia, unspecified; D72.829 Elevated white blood cell count, unspecified; I95.9 Hypotension, unspecified; E78.00 Pure hypercholesterolemia, unspecified; J44.9 Chronic obstructive pulmonary disease, unspecified; Z87.891 Personal history of nicotine dependence; K21.9 Gastro-esophageal reflux disease without esophagitis; M54.9 Dorsalgia, unspecified; M19.91 Primary osteoarthritis, unspecified site; D69.9 Hemorrhagic condition, unspecified
CPT/HCPCS: 31500; 36415; 51702; 70470; 71045; 71275; 80048; 80053; 80061; 80076; 81000; 82140; 82150; 82330; 82550; 82805; 82962; 83036; 83605; 83690; 83735; 83874; 83880; 84100; 84132; 84478; 84484; 85007; 85025; 85027; 85379; 85384; 85610; 85730; 86141; 86850; 86900; 86901; 87015; 87040; 87070; 87081; 87088; 87101; 87116; 87205; 87206; 89051; 93005; 93041; 93306; 93454; 94002; 94003; 94640; 94799; 96374; 96375; 99291